=== PATIENT | male | born 1955 | race African-American/Black ===

== ENCOUNTER 2019-04-20 21:50 | Inpatient (IN) | payer MEDICARE, SELFPAY ==
--- NOTE | ~2019-04-20 | CT_ITS ---
EXAMINATION: CTA chest PE protocol DATE: 04/20/2019 23:12 INDICATION: Chest pain and shortness of breath TECHNIQUE: Computed tomography (CT) pulmonary angiogram of the chest was performed with 100 mL Omnipa que-350 intravenous contrast. Additional 3D reconstructions utilizing coronal maximum intensity proje ction (MIP) were performed. Automated exposure control and iterative reconstruction technique were em ployed. The dose-length product was 140.85 mGy-cm. COMPARISON: None FINDINGS: Good contrast opacification of the pulmonary arteries. There is mild streak artifact from dense contr ast in the superior vena cava and right atrium. Mild to moderate scattered respiratory motion artifac t which decreases sensitivity and specificity in the central pulmonary arteries and rendered is asses sment of the smaller subsegmental pulmonary arteries is essentially nondiagnostic. No definite pulmon radha embolism identified. Severe emphysema the upper lungs. Again seen is a 5.7 x 4.5 cm right upper l obe mass concerning for primary bronchogenic carcinoma.Persistent band of atelectasis extending infer olaterally from the mass in the right upper lobe. No new airspace opacities, pulmonary edema, pleural effusion or pneumothorax. Heart size is normal. No pericardial effusion. Likely metastatic 3.1 x 2.6 cm lymph node/conglomeration of lymph nodes at the right hilum and 2.5 x 1.8 cm precarinal lymph nod e. Thoracic aorta is normal in caliber with no dissection. Again seen is a short dissection at the ce liac axis. Small sliding-type hiatal hernia. Mild thoracic spondylosis. IMPRESSION: 1. No central pulmonary embolism through the segmental pulmonary arteries with more peripheral assess ment limited by motion artifact. 2. Severe emphysema in the upper lungs. 3. 5.7 x 4.5 cm right upper lobe mass with enlarged right hilar and mediastinal lymph nodes concernin g for metastatic primary bronchogenic carcinoma. 4. Small sliding-type hiatal hernia. 5. 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 Reviewed, dictated and finalized at location A. ORA OPERATIONS CONSULTANT IMPRESSION: 1. No central pulmonary embolism through the segmental pulmonary arteries with more peripheral assessment limited by motion artifact. 2. Severe emphysema in the upper lungs. 3. 5.7 x 4.5 cm right upper lobe mass with enlarged right hilar and mediastinal lymph nodes concerning for metastatic primary bronchogenic carcinoma. 4. Small sliding-type hiatal hernia. 5. 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
--- NOTE | ~2019-04-20 | CT_ITS ---
EXAMINATION: CT biopsy lung DATE: 04/24/2019 10:15 INDICATION: Right lung mass TECHNIQUE: The procedure including the risks and benefits was discussed with the patient. Risks discu ssed included infection, approximately 1/20 risk of symptomatic hemorrhage beyond mild hemoptysis, ap proximately 1/3 risk of pneumothorax, and approximately 1/10 risk of pneumothorax severe enough to wa rrant chest tube placement. The patient understood the risks and agreed to proceed. The patient was p laced prone. The skin overlying the posterior superior right chest was prepped and draped in sterile fashion. Anesthetic was administered with 1% lidocaine subcutaneously. A 19 gauge outer needle was advanced under CT guidance to the lesion of interest. A 20 gauge core biopsy needle was then used to obtain 5 core biopsy specimens. The needle was removed and the entry site was cleaned and dressed. T here were no immediate complications. The dose-length product was 91.00 mGy-cm. FINDINGS: CT images demonstrate the outer needle tip adjacent to a 6.0 x 4.8 cm mass at the posterior segment of the right upper lobe. Severe emphysema in the upper lobes. IMPRESSION: 1. Successful CT-guided biopsy of 6.0 x 4.8 cm right upper lobe mass. 2. Emphysema. Reviewed, dictated and finalized at location A. OTHERAPIST
--- NOTE | ~2019-04-20 | XR_ITS ---
EXAMINATION: XR chest 1V portable DATE: 04/24/2019 11:32 INDICATION: One hour post percutaneous right lung biopsy TECHNIQUE: frontal view of the chest was obtained. COMPARISON: Chest radiograph dated 04/24/2019 at 10:20 AM FINDINGS: Interval development of a small right pneumothorax with separation of the pleural margins at the apex of 11 mm and at the right lower lung zone of 1.6 cm. There appears to be some pleural-parenchymal sc arring at the right mid to upper lung zone with a portion of the lung remaining tethered to the parie edilia pleura. Right paramediastinal/suprahilar mass concerning for primary bronchogenic carcinoma. Elly elvi of the lungs are clear. Bilateral nipple shadows project between the anterior fifth and sixth r ibs. No other airspace opacities, pleural effusion or left-sided pneumothorax. The cardiomediastinal silhouette is normal with no midline shift. No depression of the right hemidiaphragm. Visualized bone s and soft tissues are unremarkable. IMPRESSION: 1. Interval development of a small right pleural effusion with suggestion of pleural-parenchymal scar ring tethering the lateral aspect of the right midlung to the lateral chest wall. Findings were discu ssed with Norah Wilson, the nurse caring for the patient, at 11:45 AM. Patient's oxygen saturation on room air is 96% and the patient remains asymptomatic. Following discussion with Dr. Jeannie Colon the plan is to continue to observe the patient with continuous oxygen saturation monitoring and obtai nalini the standard 3 hour postprocedure radiograph. Should the patient decompensated or the pneumothora x continued to demonstrate significant increase in size would consider chest tube placement at that t blayne. 2. Right upper lobe mass concerning for primary bronchogenic carcinoma. Reviewed, dictated and finalized at location A. MATION OPERATOR IMPRESSION: 1. Interval development of a small right pleural effusion with suggestion of pl eural-parenchymal scarring tethering the lateral aspect of the right midlung to the lateral chest wall. Findings were discussed with Norah Wilson, the nurse caring for the patient, at 11:45 AM. Patient's oxygen saturation on room air i s 96% and the patient remains asymptomatic. Following discussion with Dr. Andrea Colon the plan is to continue to observe the patient with continuous oxygen saturation monitoring and obtained the standard 3 hour postprocedure radiograph . Should the patient decompensated or the pneumothorax continued to demonstrate significant increase in size would consider chest tube placement at that time. 2. Right upper lobe mass concerning for primary bronchogenic carcinoma.
--- NOTE | ~2019-04-20 | XR_ITS ---
EXAMINATION: XR chest 1V portable DATE: 04/24/2019 13:29 INDICATION: 3 hour post right percutaneous lung biopsy. Pneumothorax. TECHNIQUE: frontal view of the chest was obtained. COMPARISON: Chest radiographs dated 04/24/2019 at 11:26 AM and 10:20 AM FINDINGS: Continued slow increase in a small to moderate-sized right pleural effusion with increasing atelectas is in the right lung. The separation between the pleural margins measures 1.1 cm at the right upper l lena zone and 2.5 cm at the lateral right lower lung zone. Small component is also seen between the me dial right upper lobe and the mediastinum. Again seen is a large right suprahilar/paramediastinal mas s concerning for primary bronchogenic carcinoma. Left lung remains clear with no left-sided pneumotho rax. No pleural effusion. Cardiomediastinal silhouette remains normal and midline. IMPRESSION: 1. Increasing small to moderate sized right pneumothorax post percutaneous biopsy right paramediastin al/suprahilar mass concerning for primary bronchogenic carcinoma. Per discussion with the patient's n giovannae the oxygen saturations have decreased, now 94% on 2 L oxygen by nasal cannula. A previous discus clive with Dr. Colon, we will proceed with CT-guided chest tube placement. I discussed the findings a nd the plan with the patient who stated the risks and benefits of the procedure as well as continued observation. He provided verbal and written consent to proceed with chest tube placement. Reviewed, dictated and finalized at location A. ING TEACHER IMPRESSION: 1. Increasing small to moderate sized right pneumothorax post percutaneous biop sy right paramediastinal/suprahilar mass concerning for primary bronchogenic ca rcinoma. Per discussion with the patient's nurse the oxygen saturations have de creased, now 94% on 2 L oxygen by nasal cannula. A previous discussion with Dr. Colon, we will proceed with CT-guided chest tube placement. I discussed the f indings and the plan with the patient who stated the risks and benefits of the procedure as well as continued observation. He provided verbal and written cons ent to proceed with chest tube placement.
--- NOTE | ~2019-04-20 | XR_ITS ---
XR chest 1V portable DATE: 04/26/2019 05:46 INDICATION: Pneumothorax TECHNIQUE: Portable upright AP chest on 04/26/2019 at 0540 hours COMPARISON: 04/25/2019 portable AP chest at 0537 hours FINDINGS: Right thoracostomy tube is again noted. No pneumothorax is evident. Pulmonary mass density is noted at the right upper lobe. There is mild atelectasis at the lung bases, left greater than righ t. IMPRESSION: No evidence of pneumothorax following thoracostomy tube placement Right upper lobe pulmonary mass Mild infiltrate or atelectasis in the lower lung zones, left greater than right Reviewed, dictated and finalized at location A. GE REPAIR CREW PERSON
--- NOTE | ~2019-04-20 | XR_ITS ---
EXAMINATION: XR chest 2V EXAM DATE: 04/26/2019 16:18 INDICATION: Chest tube removal. TECHNIQUE: Frontal and lateral projections of the chest obtained and reviewed. Comparison is made to prior examination from earlier same date. FINDINGS: Previously seen right-sided chest tube has been removed. There is no evidence of pneumotho rax on this study. Right suprahilar mass unchanged. Small amount of nonspecific left lower lobe atele ctasis or pneumonia. The lungs are otherwise clear. There are no pleural effusions. The cardiomedia stinal silhouette is within normal limits. The bones and soft tissues are unremarkable. IMPRESSION: 1. Small amount of left lower lobe atelectasis or pneumonia.. 2. Right suprahilar mass. 3. No evidence of pneumothorax. Reviewed, dictated and finalized at location A. CAL LEADER
--- NOTE | ~2019-04-20 | XR_ITS ---
EXAMINATION: XR chest 1V portable INDICATION: Bronchoscopy TECHNIQUE: Portable AP chest at 1632 hours COMPARISON: 04/14/[address] from yesterday FINDINGS: There is a stable right suprahilar mass. Peripheral opacities adjacent to the mass could re flect atelectasis or less likely pulmonary hemorrhage. There is no pleural effusion or pneumothorax. The cardiomediastinal silhouette is normal. Calcified pulmonary nodules and calcified hilar lymph nod es are consistent with old granulomatous disease. IMPRESSION: 1. Stable right hilar mass, no pneumothorax. 2. Minimal airspace opacities peripheral to the mass likely reflect atelectasis. Reviewed, dictated and finalized at location A. L INSTRUCTOR IMPRESSION: 1. Stable right hilar mass, no pneumothorax. 2. Minimal airspace opacities peripheral to the mass likely reflect atelectasis .
--- NOTE | ~2019-04-20 | CT_ITS ---
EXAMINATION: CT brain wo con DATE: 04/21/2019 01:32 INDICATION: Syncope and head trauma. TECHNIQUE: Computed tomography (CT) of the head was performed without intravenous contrast. Sagittal and coronal reconstructions were performed. The mA was adjusted according to patient size. Iterative reconstruction technique was employed. The dose-length product was 605.33 mGy-cm. COMPARISON: head CT dated 08/16/2006 FINDINGS: No acute fracture. Chronic fixation with cerclage wires at the posterior ring of C1. No acute intracr anial hemorrhage, acute infarction or abnormal extra axial fluid collection. There is mild scattered white matter hypoattenuation consistent with chronic small vessel ischemic disease. Mild increased pr ominence of the sulci and subarachnoid spaces overlying the convexities consistent with mild age-appr opriate diffuse volume loss. Ventricles are normal and symmetric. No mass/mass effect. Small amount o f residual contrast in the vessels and along the dura from a contrast-enhanced CT of the chest perfor med less than 3 hours prior. The orbits, paranasal sinuses and mastoid air cells are normal. Intracra nial calcified cerebral atherosclerosis is noted. IMPRESSION: 1. No fracture or acute intracranial process. Reviewed, dictated and finalized at location A. DEPILER OPERATOR
--- NOTE | ~2019-04-20 | XR_ITS ---
EXAMINATION: XR chest 1V DATE: 04/24/2019 10:30 INDICATION: Status post percutaneous right lung biopsy TECHNIQUE: frontal view of the chest was obtained. COMPARISON: Chest radiograph dated 04/21/2019 FINDINGS: Again seen is a large suprahilar/paramediastinal mass in the right upper lung zone. Increased lucency and architectural distortion at the apices consistent with emphysema. No new airspace opacities, pul monary edema, pleural effusion or pneumothorax. The cardiomediastinal silhouette is normal. IMPRESSION: 1. Pneumothorax, pleural effusion or other acute cardiopulmonary disease post percutaneous biopsy of a right upper lobe paramediastinal mass concerning for primary bronchogenic carcinoma. Reviewed, dictated and finalized at location A. WELL OPERATOR IMPRESSION: 1. Pneumothorax, pleural effusion or other acute cardiopulmonary disease post p ercutaneous biopsy of a right upper lobe paramediastinal mass concerning for pr imary bronchogenic carcinoma.
--- NOTE | ~2019-04-20 | XR_ITS ---
EXAMINATION: XR chest 1V portable DATE: 04/25/2019 05:46 INDICATION: Pneumothorax TECHNIQUE: frontal view of the chest was obtained. COMPARISON: Chest radiograph dated 04/24/2019 and 04/21/2019 FINDINGS: Right chest tube with coiled distal tip projecting over the right apex. No pneumothorax or pulmonary edema or pleural effusion. Mild linear opacities at the periphery of the right upper, mid and lower l lena zones consistent with mild discoid atelectasis. Right suprahilar mass concerning for primary bron chogenic carcinoma. The cardiomediastinal silhouette is normal. IMPRESSION: 1. Resolution of prior pneumothorax post chest tube placement. 2. Right suprahilar mass concerning for primary bronchogenic carcinoma. Reviewed, dictated and finalized at location A. CENTER OPERATOR
--- NOTE | ~2019-04-20 | US_ITS ---
EXAMINATION: US carotid duplex BI DATE: 04/21/2019 09:23 INDICATION: Syncope TECHNIQUE: Grayscale, color Doppler, and pulsed Doppler images of the cervical carotid arteries were obtained. The degree of vessel stenosis is placed in one of the following categories: normal, <50%, 5 0-69%, >=70% but less than near-occlusion, near-occlusion, or total occlusion. Note that percent sten osis relative to normal distal artery lumen diameter is indirectly measured from velocity measurement s as described by Matt, et al. Radiology 2003; [id number]:[id number]. COMPARISON: None. FINDINGS: RIGHT: The right common carotid artery (CCA) peak systolic velocity (PSV) is 120 cm/s. The right internal ca rotid artery (ICA) PSV is 100 cm/s. The right ICA end-diastolic velocity (EDV) is 31 cm/s. The right ICA/CCA PSV ratio is 0.8. Grayscale and color Doppler images demonstrate no appreciable stenosis or p laque in the ICA. The external carotid artery (ECA) PSV is 98 cm/s. There is antegrade flow in the ri ght vertebral artery. LEFT: The left CCA PSV is 132 cm/s. The left ICA PSV is 126 cm/s. The left ICA EDV is 29 cm/s. The left ICA /CCA PSV ratio is 1.0. Grayscale and color Doppler images demonstrate no appreciable stenosis or plaq ue in the ICA. The ECA PSV is 156 cm/s. There is antegrade flow in the left vertebral artery. IMPRESSION: 1. No appreciable plaque or stenosis in the right internal carotid artery. 2. No appreciable plaque or stenosis in the left internal carotid artery. Reviewed, dictated and finalized at location A. CAL SOCIAL WORKER
--- NOTE | ~2019-04-20 | CT_ITS ---
EXAMINATION: [place] [facility] [place]: 04/24/2019 15:31 INDICATION: Right-sided pneumothorax post percutaneous lung biopsy TECHNIQUE: The procedure including the risks and benefits was discussed with the patient. Risks discu ssed included bleeding and infection. The patient understood the risks and benefits and agreed to pro ceed. The skin overlying the infraclavicular right chest wall was prepped and draped in usual sterile fashion. Anesthetic was administered with 1% lidocaine subcutaneously. An 18-gauge trocar needle wa s inserted into the apical portion of the right pneumothorax utilizing CT guidance. The trocar was re moved and a wire advanced into the pneumothorax with position confirmed by CT. Utilizing Seldinger te chnique the needle was removed and the tract dilated over the wire and an 8.5 [place] catheter was jose marci into the pneumothorax. Position was confirmed by CT, the wire removed and the loop formed and loc ked. Vaseline impregnated gauze was applied at the access site, the catheter fixed to the skin with s uture and a sterile dressing applied. The pneumothorax was manually aspirated with near complete reso lution of the pneumothorax confirmed by CT. Patient's oxygen requirement decreased and the patient wa s satting 98% on 2 L by nasal cannula at the prior to transport to the floor. The catheter was attach ed to a one-way valve and the more proximal stopcock closed for transport. I discussed with the nurse of the catheter should be attached to suction upon reaching the floor and a follow-up chest radiogra ph obtained. There were no immediate complications. The mAs was manually reduced to reduce radiation exposure. The dose-length product was 92.66 mGy-cm. FINDINGS: CT images demonstrate the catheter within the anterior apical pleural space with near compl ete resolution of the prior pneumothorax. Severe emphysema in the upper lung zones. Again seen is the biopsied right upper lobe mass which is concerning for primary bronchogenic carcinoma. IMPRESSION: 1. Successful CT-guided right chest tube placement. 2. The chest tube will be managed by Dr. Mackay. Reviewed, dictated and finalized at location A. IGURATION MANAGEMENT CONSULTANT
[2019-04-20 21:49] VITALS: BP 127/84; PULSE 120; RESP 26; TEMP 37.1; O2SAT 100
--- NOTE | 2019-04-20 21:58 | ECG_ITS ---
Measurements Intervals [place] Rate: 112 P: 69 IA: 149 QRS: -46 QRSD: 78 T: 52 QT: 328 QTc: 448 Interpretive Statements SINUS TACHYCARDIA LEFT ANTERIOR FASCICULAR BLOCK BASELINE ARTIFACT- I, II, III, AVR, AVL, AVF, V1 ABNORMAL ECG Electronically Signed On 04-21-2019 7:06:54 BAD WORK GATHERER by Vance Molina D.O.
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
[2019-04-20] MEDS: ONDANSETRON INJ 4 MG/2 ML VIAL IV PUSH (22:17)
[2019-04-20] MEDS: SODIUM CHLORIDE 0.9% IV 1,000 ML 999 ML IV CONT ×2 (22:17→23:22)
[2019-04-20 22:24] LABS: Basophils Absolute Auto 0.1 K/mm3 (0.0-0.1); Basophils Percent Auto 0.4 % (0.2-1.2); Eosinophils Percent Auto 0.1 % (0-4.4); Hematocrit 37.6 % (42.0-52.0); Hemoglobin 12.3 g/dL (14.0-18.0); Immature Granulocyte Absolute 0.04 K/mm3 (0.00-0.031); Immature Granulocyte Percent A 0.3 % (0-0.5); Lymphocytes Absolute Auto 2.44 K/mm3 (0.9-3.2); Lymphocytes Percent Auto 19.6 % (18.3-44.2); Mean Corpuscular HGB Conc 32.7 g/dl (32-36); Mean Corpuscular Volume 82.6 fl (80-100); Mean Platelet Volume 8.3 fl (7.4-10.4); Monocytes Percent Auto 7.9 % (2.6-8.5); Neutrophils Absolute Auto 8.9 K/mm3 (1.3-6.7); Neutrophils Percent Auto 71.7 % (45.5-73.1); Platelet Count Result 510 k/mm3 (150-375); Red Blood Count 4.55 M/mm3 (4.6-6.20); Red Cell Distribution Width 13.8 % (11.5-14.5); White Blood Count 12.5 K/mm3 (4.5-10.0)
[2019-04-20] MEDS: LORAZEPAM INJ 2 MG/ML VIAL 1 MG IV PUSH (22:24)
[2019-04-20] MEDS: PANTOPRAZOLE SODIUM IV 40 MG VIAL IV PUSH (22:24)
[2019-04-20 22:35] LABS: Partial Thromboplastin Time 24.1 SECONDS (22.3-36.8); Prothrombin Time 13.1 Seconds (11.1-14.7)
[2019-04-20 22:36] LABS: Alanine Aminotransferase 17 U/L (4-50); Albumin Level 4.5 g/dL (3.5-5.1); Alkaline Phosphatase 78 U/L (38-126); Aspartate Amino Transferase 37 U/L (17-59); Bilirubin,Total 0.6 mg/dL (0.2-1.3); Blood Urea Nitrogen 14 mg/dL (9-20); Calcium 9.3 mg/dL (8.4-10.2); Carbon Dioxide 22 mmol/L (22-30); Chloride 96 mmol/L (98-107); Estimated CRCL calculation 60 ml/min; Estimated Glomerular Filt Rate > 60; Glucose 129 mg/dL (75-110); Potassium 3.7 mmol/L (3.4-5.0); Sodium 132 mmol/L (137-145)
[2019-04-20 22:48] LABS: Troponin I 0.018 ng/mL (0.000-0.034)
[2019-04-20 22:55] VITALS: BP 125/81; PULSE 107; RESP 22; O2SAT 100
[2019-04-20 23:15] VITALS: PULSE 115; RESP 29
[2019-04-20] MEDS: ALBUTEROL SULFATE NEB 2.5 MG/0.5 ML INH 5 MG INHALATION (23:15)
[2019-04-20] MEDS: IPRATROPIUM BR 0.02% INH SOLN 0.5 MG/2.5 ML VIAL INHALATION (23:15)
[2019-04-20 23:26] VITALS: PULSE 117; RESP 24
[2019-04-21] VITALS (26 sets, daily range): BP systolic 101–132; BP diastolic 51–80; PULSE 79–117; RESP 16–32; TEMP 36.2–37.6; O2SAT 95–100; BMI 18.1
--- NOTE | 2019-04-21 01:19 | ECHO_ITS ---
Patient Info Name: Shubham Sutton Age: 63 years : 1955 Gender: Male Ht: 67 in Wt: 110 lbs BSA: 1.52 m2 HR: 100 bpm BP: 123 / 76 mmHg Heart Rhythm: Tachycardia Technical Quality: Good Exam Date: 04/21/2019 11:39 AM Exam Location: [facility] Patient Status: Inpatient Admit Date: 04/21/2019 Staff Ordering Physician: Maycol Harper MD Import/Export Clerk: Abigail Elmore RDCS Attending Provider: Leila Isabel PA-C Referring Physician: Leroy BEAR; Exam Type: CA echo doppler color flow Study Info Indications R55 - Syncope and collapse Complete two-dimensional, color flow and Doppler transthoracic echocardiogram is performed. Summary 1. Left ventricular systolic function is hyperdynamic, estimated at >70%. 2. There is no increased left ventricular wall thickness. 3. The left ventricular diastolic function is grade I diastolic dysfunction. 4. There is trace mitral valve regurgitation. 5. There is no aortic valve stenosis. 6. There is mild tricuspid valve calcification. 7. PA systolic pressure 37mmHg consistent with mild pulmonary hypertension. Left Ventricle Left ventricular chamber dimension is normal. Left ventricular systolic function is hyperdynamic, estimated at >70%. There is no increased left ventricular wall thickness. Left ventricular septal wall motion is normal. The left ventricular diastolic function is grade I diastolic dysfunction. Right Ventricle Right ventricular chamber dimension is normal. Right ventricular systolic function is normal. Left Atria Left atrial chamber dimension is normal. Right Atria Right atrial chamber dimension is normal. Aortic Valve The aortic valve is trileaflet. There is mild aortic valve sclerosis. There is no aortic valve stenosis. There is no aortic valve regurgitation. Pulmonic Valve The pulmonic valve is not well visualized. There is trace pulmonic regurgitation. Mitral Valve The mitral valve has normal leaflets. There is trace mitral valve regurgitation. Tricuspid Valve The tricuspid valve leaflets are normal. There is mild tricuspid valve calcification. PA systolic pressure 37mmHg consistent with mild pulmonary hypertension. Pericardium/Pleural The pericardium appears normal. There is no pericardial effusion. Inferior Vena Cava Normal inferior vena cava with >50% collapse upon inspiration consistent with normal right atrial pressure, 5 mmHg. Aorta The aortic root size at the sinus of Valsalva is normal. Left Ventricular Outflow Tract Name Value Normal LVOT 2D LVOT Diameter 2.0 cm LVOT Doppler LVOT Peak Gradient 7 mmHg LVOT Mean Gradient 4 mmHg LVOT VTI 20 cm LVOT VTI/AV VTI Ratio 0.9 LVOT Stroke Volume 65 ml LVOT CO 17.7 l/min LVOT CI 11.6 l/min/m2 Pulmonic Valve Name Value
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
[2019-04-21 01:44] LABS: Troponin I 0.017 ng/mL (0.000-0.034)
--- NOTE | 2019-04-21 02:20 | ADMGEN ---
This patient, Shubham Sutton, was admitted to [facility] Surg Room 320-01. Patient/family oriented to hospital policies and general routines including ID bracelet, bed and alarms, visiting hours, pain management, procedures, bathroom and other care routines, personal items, smoking policy, room service/diet, and visiting hours. Valuables list has been completed. Information on how to activate the Rapid Response Team has been discussed. Patient/Family are encouraged to report perceived risks to care and to ask questions if they do not understand what they are told or what they should do.
[2019-04-21] MEDS: ALBUTEROL SULFATE NEB 2.5 MG/0.5 ML INH 5 MG INHALATION ×3 (02:21→21:10)
[2019-04-21] MEDS: IPRATROPIUM BR 0.02% INH SOLN 0.5 MG/2.5 ML VIAL INHALATION ×3 (02:22→21:09)
[2019-04-21] MEDS: SODIUM CHLORIDE 0.9% IV 1,000 ML 100 ML IV CONT ×2 (03:12→19:05)
[2019-04-21 04:27] LABS: Basophils Percent Auto 0.4 % (0.2-1.2); Hematocrit 32.3 % (42.0-52.0); Hemoglobin 10.3 g/dL (14.0-18.0); Immature Granulocyte Absolute 0.02 K/mm3 (0.00-0.031); Immature Granulocyte Percent A 0.2 % (0-0.5); Lymphocytes Absolute Auto 2.95 K/mm3 (0.9-3.2); Mean Corpuscular HGB Conc 31.9 g/dl (32-36); Mean Corpuscular Hemoglobin 26.5 pg (26-34); Mean Corpuscular Volume 83.2 fl (80-100); Mean Platelet Volume 8.2 fl (7.4-10.4); Monocytes Absolute Auto 0.8 K/mm3 (0.1-0.6); Monocytes Percent Auto 8.5 % (2.6-8.5); Neutrophils Absolute Auto 5.7 K/mm3 (1.3-6.7); Neutrophils Percent Auto 59.9 % (45.5-73.1); Platelet Count Result 434 k/mm3 (150-375); Red Blood Count 3.88 M/mm3 (4.6-6.20); Red Cell Distribution Width 13.8 % (11.5-14.5); White Blood Count 9.5 K/mm3 (4.5-10.0)
[2019-04-21 04:39] LABS: Blood Urea Nitrogen 11 mg/dL (9-20); Calcium 8.5 mg/dL (8.4-10.2); Carbon Dioxide 23 mmol/L (22-30); Chloride 101 mmol/L (98-107); Estimated CRCL calculation 71 ml/min; Estimated Glomerular Filt Rate > 60; Glucose 116 mg/dL (75-110); Potassium 4.1 mmol/L (3.4-5.0); Sodium 132 mmol/L (137-145)
[2019-04-21 04:51] LABS: Troponin I 0.019 ng/mL (0.000-0.034)
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
[2019-04-21] MEDS: PANTOPRAZOLE SODIUM IV 40 MG VIAL IV PUSH (10:10)
--- NOTE | 2019-04-21 12:28 | P.PNAN_ITS ---
Anes - Initial Pre Proc Eval Procedure: Operation Date: 04/21/19 13:00 Proposed Procedures p Flexible Bronchoscopy - Mikey Mace MD Date/Time: 04/21/19 12:28 Surgeon: PHILIP Cook Pre Op Diagnosis: Chest Pain Patient Data Age: 63 Gender: M Height: 1.7 m Weight: 52.5 kg Last Vital Signs Temp 37.6 C 04/21/19 06:00 Pulse 97 04/21/19 09:58 Resp 18 04/21/19 09:58 BP 123/76 04/21/19 06:00 Pulse Ox 97 04/21/19 06:00 Allergies Allergy/AdvReac Type Severity Reaction Status Date / Time propoxyphene Allergy Unknown N/V Verified 04/20/19 22:56 tramadol Allergy Unknown Unknown Verified 04/20/19 22:56 Home Medications Medication Instructions Recorded Confirmed Type hydrochlorothiazide 12.5 mg BYMOUTH DAILY 04/14/19 04/21/19 History meloxicam 7.5 mg PO DAILY 04/14/19 04/21/19 History Laboratory Tests 04/20/19 04/20/19 04/20/19 22:16 22:17 22:17 WBC 12.5 K/mm3 H K/mm3 (4.5-10.0) RBC 4.55 M/mm3 L M/mm3 (4.6-6.20) Hgb 12.3 g/dL L g/dL (14.0-18.0) Hct 37.6 % L % (42.0-52.0) MCV 82.6 fl fl (80-100) MCH 27.0 pg pg (26-34) MCHC 32.7 g/dl g/dl (32-36) RDW 13.8 % % (11.5-14.5) Plt Count 510 k/mm3 H k/mm3 (150-375) MPV 8.3 fl fl (7.4-10.4) Immature Gran % (Auto) 0.3 % % (0-0.5) Neut % (Auto) 71.7 % % (45.5-73.1) Lymph % (Auto) 19.6 % % (18.3-44.2) [place] % (Auto) 7.9 % % (2.6-8.5) Eos % (Auto) 0.1 % % (0-4.4) Baso % (Auto) 0.4 % % (0.2-1.2) Lymph # (Auto) 2.44 K/mm3 K/mm3 (0.9-3.2) [place] # (Auto) 1.0 K/mm3 H K/mm3 (0.1-0.6) Eos # (Auto) 0.0 K/mm3 K/mm3 (0-0.3) Baso # (Auto) 0.1 K/mm3 K/mm3 (0.0-0.1) Abs Immat Gran (auto) 0.04 K/mm3 H K/mm3 (0.00-0.031) Absolute Neuts (auto) 8.9 K/mm3 H K/mm3 (1.3-6.7) Absolute Nucleated RBC 0.0 K/mm3 K/mm3 (0.0-0.012) Nucleated RBC % 0.0 % % (0.0-0.2) PT 13.1 Seconds Seconds (11.1-14.7) INR 1.0 APTT 24.1 SECONDS SECONDS (22.3-36.8) Sodium 132 mmol/L L mmol/L (137-145) Potassium 3.7 mmol/L mmol/L (3.4-5.0) Chloride 96 mmol/L L mmol/L (98-107) Carbon Dioxide 22 mmol/L mmol/L (22-30) BUN 14 mg/dL mg/dL (9-20) Creatinine 0.80 mg/dL mg/dL (0.7-1.3) Estim Creat Clear Calc 60 ml/min ml/min Estimated GFR > 60 (59 - ) Glucose 129 mg/dL H mg/dL (75-110) Calcium 9.3 mg/dL mg/dL (8.4-10.2) Total Bilirubin 0.6 mg/dL mg/dL (0.2-1.3)
--- NOTE | 2019-04-21 12:37 | WPDANESEPPF ---
Anes - Initial Pre Proc Eval Procedure: Operation Date: 04/21/19 13:00 Proposed Procedures p Flexible Bronchoscopy - Mikey Mace MD Date/Time: 04/21/19 12:37 Surgeon: PHILIP Cook Pre Op Diagnosis: Chest Pain Patient Data Age: 63 Gender: M Height: 1.7 m Weight: 52.5 kg Last Vital Signs Temp 37.6 C 04/21/19 06:00 Pulse 97 04/21/19 09:58 Resp 18 04/21/19 09:58 BP 123/76 04/21/19 06:00 Pulse Ox 97 04/21/19 06:00 Allergies Allergy/AdvReac Type Severity Reaction Status Date / Time propoxyphene Allergy Unknown N/V Verified 04/20/19 22:56 tramadol Allergy Unknown Unknown Verified 04/20/19 22:56 Home Medications Medication Instructions Recorded Confirmed Type hydrochlorothiazide 12.5 mg BYMOUTH DAILY 04/14/19 04/21/19 History meloxicam 7.5 mg PO DAILY 04/14/19 04/21/19 History Laboratory Tests 04/20/19 04/20/19 04/20/19 22:16 22:17 22:17 WBC 12.5 K/mm3 H K/mm3 (4.5-10.0) RBC 4.55 M/mm3 L M/mm3 (4.6-6.20) Hgb 12.3 g/dL L g/dL (14.0-18.0) Hct 37.6 % L % (42.0-52.0) MCV 82.6 fl fl (80-100) MCH 27.0 pg pg (26-34) MCHC 32.7 g/dl g/dl (32-36) RDW 13.8 % % (11.5-14.5) Plt Count 510 k/mm3 H k/mm3 (150-375) MPV 8.3 fl fl (7.4-10.4) Immature Gran % (Auto) 0.3 % % (0-0.5) Neut % (Auto) 71.7 % % (45.5-73.1) Lymph % (Auto) 19.6 % % (18.3-44.2) [place] % (Auto) 7.9 % % (2.6-8.5) Eos % (Auto) 0.1 % % (0-4.4) Baso % (Auto) 0.4 % % (0.2-1.2) Lymph # (Auto) 2.44 K/mm3 K/mm3 (0.9-3.2) [place] # (Auto) 1.0 K/mm3 H K/mm3 (0.1-0.6) Eos # (Auto) 0.0 K/mm3 K/mm3 (0-0.3) Baso # (Auto) 0.1 K/mm3 K/mm3 (0.0-0.1) Abs Immat Gran (auto) 0.04 K/mm3 H K/mm3 (0.00-0.031) Absolute Neuts (auto) 8.9 K/mm3 H K/mm3 (1.3-6.7) Absolute Nucleated RBC 0.0 K/mm3 K/mm3 (0.0-0.012) Nucleated RBC % 0.0 % % (0.0-0.2) PT 13.1 Seconds Seconds (11.1-14.7) INR 1.0 APTT 24.1 SECONDS SECONDS (22.3-36.8) Sodium 132 mmol/L L mmol/L (137-145) Potassium 3.7 mmol/L mmol/L (3.4-5.0) Chloride 96 mmol/L L mmol/L (98-107) Carbon Dioxide 22 mmol/L mmol/L (22-30) BUN 14 mg/dL mg/dL (9-20) Creatinine 0.80 mg/dL mg/dL (0.7-1.3) Estim Creat Clear Calc 60 ml/min ml/min Estimated GFR > 60 (59 - ) Glucose 129 mg/dL H mg/dL (75-110) Calcium 9.3 mg/dL mg/dL (8.4-10.2) Total Bilirubin 0.6 mg/dL mg/dL (0.2-1.3) AST 37 U/L U/L (17-59) ALT 17 U/L U/L (4-50) Alkaline Phosphatase 78 U/L U/L (38-126) Troponin I Total Protein 9.0 g/dL H g/dL (6.3-8.2) Albumin 4.5 g/dL g/dL (3.5-5.1) TSH (Reflex) 04/20/19 04/21/19 04/21/19 22:19 01:15 04:20 WBC RBC Hgb Hct MCV MCH MCHC RDW Plt Count MPV Immature Gran % (Auto) Neut % (Auto) Lymph % (Auto) [place] % (Auto) Eos % (Auto) Baso % (Auto) Lymph # (Auto) [place] # (Auto) Eos # (Auto) Baso # (Auto) Abs Immat Gran (auto) Absolute Neuts (auto) Absolute Nucleated RBC Nucleated RBC % PT INR APTT Sodium Potassium Chloride Carbon Dioxide BUN Creatinine Estim Creat Clear Calc Estimated GFR Glucose Calcium Total Bilirubin A
[2019-04-21] MEDS: LACTATED RINGERS 1,000 ML 150 ML IV CONT (12:45)
--- NOTE | 2019-04-21 14:30 | PCRCNOTE ---
1421 Patient in procedure not in room.
--- NOTE | 2019-04-21 16:19 | PC.NURSE ---
Returned from GI at 1600
--- NOTE | 2019-04-21 19:28 | PM.IMPN ---
Progress Note: A&P Assessment and Plan (1) Lung mass: Code(s): R91.8 - Other nonspecific abnormal finding of lung field Status: Acute Assessment and Plan: Patient was found to have right upper lobe pulmonary mass on an ED visit 04/14 when he came in for chest pain. Followed up with his PCP the following day and was referred for an outpatient biopsy that was scheduled for next week. Pulmonology consulted and he underwent bronchoscopy this afternoon with . Appreciate further recommendations from pulmonology and Oncology. (2) Acute dyspnea: Code(s): R06.00 - Dyspnea, unspecified Status: Acute Assessment and Plan: [place] to be secondary to above. Appreciate pulmonology input. (3) Syncope: Qualifiers: Syncope type: unspecified Qualified Code(s): R55 - Syncope and collapse Code(s): R55 - Syncope and collapse Status: Acute Assessment and Plan: Patient presented after syncopal episode at home after he became dizzy and diaphoretic while sitting on the toilet and fell and hit his head on the floor. May have been vasovagal in nature. CT brain shows no fracture or acute intracranial process, carotid Dopplers are unremarkable, echocardiogram shows grade 1 diastolic dysfunction, hyperdynamic systolic function EF > 70 % with trace mitral regurgitation. 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 ED providers 04/14/[address] surgery and vascular surgery at [facility] who recommended follow-up at their vascular surgery clinic as an outpatient and he has been given this information. Their office number is [phone]. Vitals are stable aside from sinus tachycardia, he is also is getting albuterol. Blood pressures are stable, he has no chest pain, troponins are negative. (5) HTN (hypertension) with goal to be determined: Code(s): I10 - Essential (primary) hypertension Status: Chronic Assessment and Plan: Stable maintained on his home hydrochlorothiazide. Monitor BP closely and adjust treatment if needed. Subjective Date/time seen: 04/21/19 1700 Interval history: Mr. Sutton is a 63yo M admitted after a syncopal episode after he was recently found to have a large right upper lobe lung mass. He is seen this morning after returning from bronchoscopy. He reports feeling okay, tired and hungry. He denies any chest pain at present. He tells me once he starts to talk too much, he becomes more short of breath and coughs. He denies any nausea or vomiting. Review of Systems Review of Systems: Narrative: Twelve systems were reviewed with pertinent positives and negatives as per HPI. Exam Narrative: Exam Narrative: General: Male resting sitting in bed in no acute distress. HEENT: Normocephalic, EOMI, oral mucosa dry. Cardiovascular: Rate and rhythm are regular. No notable murmur, rub, or gallop. Telemetry review shows sinus tachycardia, rate 108. Respiratory: Clear to auscultation, diminished on the left. Tolerating room air. Cough noted. Abdomen: Soft, non-tender, non-distended, bowel sounds present. Extremities: No edema or pain to palpation. Peripheral pulses intact. Neuro: No focal neurological deficits. Speech is clear. Objective Data Vital Signs Vital Signs: Last Vital Signs Temp 98.1 F 04/21/19 14:00 Pulse 108 H 04/21/19 16:00 Resp 18 04/21/19 15:30 BP 117/80 04/21/19 15:30 Pulse Ox 100 04/21/19 15:30 Intake/Output Intake/Output: Intake & Output 04/18/19 04/19/19 04/20/19 04/21/19 23:59 23:59 23:59 23:59 Intake Total 1000 2660 Output Total 1600 Balance 1000 1060 Meds/Results Medications: Active Medications
[2019-04-22] VITALS (13 sets, daily range): BP systolic 110–134; BP diastolic 74–87; PULSE 87–113; RESP 16–20; TEMP 36.7–37.1; O2SAT 96–100
[2019-04-22] MEDS: ALBUTEROL SULFATE NEB 2.5 MG/0.5 ML INH 5 MG INHALATION ×2 (02:56→07:58)
[2019-04-22] MEDS: IPRATROPIUM BR 0.02% INH SOLN 0.5 MG/2.5 ML VIAL INHALATION ×2 (02:56→07:59)
[2019-04-22] MEDS: SODIUM CHLORIDE 0.9% IV 1,000 ML 100 ML IV CONT (05:16)
[2019-04-22 06:24] LABS: Hematocrit 29.7 % (42.0-52.0); Hemoglobin 9.5 g/dL (14.0-18.0); Mean Corpuscular Hemoglobin 27.1 pg (26-34); Mean Corpuscular Volume 84.6 fl (80-100); Mean Platelet Volume 8.4 fl (7.4-10.4); Platelet Count Result 399 k/mm3 (150-375); Red Blood Count 3.51 M/mm3 (4.6-6.20); Red Cell Distribution Width 13.9 % (11.5-14.5); White Blood Count 8.7 K/mm3 (4.5-10.0)
[2019-04-22 06:40] LABS: Blood Urea Nitrogen 9 mg/dL (9-20); Calcium 8.2 mg/dL (8.4-10.2); Carbon Dioxide 21 mmol/L (22-30); Chloride 103 mmol/L (98-107); Estimated CRCL calculation 71 ml/min; Estimated Glomerular Filt Rate > 60; Glucose 99 mg/dL (75-110); Phosphorus 3.3 mg/dL (2.5-4.5); Potassium 3.7 mmol/L (3.4-5.0); Sodium 135 mmol/L (137-145)
--- NOTE | 2019-04-22 06:59 | WPDANESPN ---
Anes - Prog Note Post-Op Date/Time: 04/22/19 06:59 Cardiovascular status: normal Respiratory status: normal Airway patency: baseline Mental status: baseline Post-Op hydration status: normal Vital Signs: Last Vital Signs Temp 36.9 C 04/22/19 06:14 Pulse 106 H 04/22/19 06:14 Resp 16 04/22/19 06:14 BP 131/75 04/22/19 06:14 Pulse Ox 96 04/22/19 06:14 I/O: Intake & Output 04/21/19 04/21/19 04/22/19 15:59 23:59 07:59 Intake Total 870 1550 1350 Output Total 300 900 850 Balance 570 650 500 Laboratory Tests 04/22/19 05:55 04/22/19 05:55 04/22/19 04/22/19 05:55 05:55 WBC 8.7 RBC 3.51 L Hgb 9.5 L Hct 29.7 L MCV 84.6 MCH 27.1 MCHC 32.0 RDW 13.9 Plt Count 399 H MPV 8.4 Sodium 135 L Potassium 3.7 Chloride 103 Carbon Dioxide 21 L BUN 9 Creatinine 0.70 Estim Creat Clear Calc 71 Estimated GFR > 60 Glucose 99 Calcium 8.2 L Phosphorus 3.3 Magnesium 2.0 Post-procedural complaints: none Patient Feedback: Patient satisfied with anesthetic care.
[2019-04-22] MEDS: PANTOPRAZOLE SODIUM IV 40 MG VIAL IV PUSH (08:24)
[2019-04-22] MEDS: hydroCHLOROthiazide 12.5 MG CAPSULE PO (08:24)
--- NOTE | 2019-04-22 13:33 | PM.IMPN ---
Progress Note: A&P Assessment and Plan (1) Syncope: Qualifiers: Syncope type: unspecified Qualified Code(s): R55 - Syncope and collapse Code(s): R55 - Syncope and collapse Status: Acute Assessment and Plan: -----workup essentially negative. He did have presyncopal symptoms which favors vasovagal. No PE on CTA, no significant stenosis on carotid ultrasound, and no stroke on head CT. No AFib noted and no echo abnormalities. Telemetry does not show any abnormalities. (2) Chest pain: Qualifiers: Chest pain type: other chest pain Qualified Code(s): R07.89 - Other chest pain Code(s): R07.9 - Chest pain, unspecified Status: Acute Assessment and Plan: Likely secondary to lung mass. Troponin negative x3 in no chest pain now. Telemetry reveals sinus tachycardia but no abnormalities. And showed sinus tachycardia with left anterior fascicular block. . (3) Sinus tachycardia: Code(s): R00.0 - Tachycardia, unspecified Status: Acute Assessment and Plan: -----the patient did not have tachycardia during his last stay but usually is on the high range of normal. He does not have any palpitations or chest pain currently. Echo looks okay. No PE. Could be due to dehydration, lung disease, anxiety. Will monitor (4) Lung mass: Code(s): R91.8 - Other nonspecific abnormal finding of lung field Status: Acute Assessment and Plan: -----bronch with washings done yesterday. Plan for CT biopsy tomorrow. (5) HTN (hypertension) with goal to be determined: Code(s): I10 - Essential (primary) hypertension Status: Chronic Assessment and Plan: stable. Monitor blood pressure. Continue Hctz Additional Plan Time Spent With Patient Time with patient: 25 - 35 minutes Subjective Date/time seen: 04/22/19 13:33 Interval history: Pt is a 63-year-old male here for syncope. Patient was seen today and is not having any syncope like symptoms but has not really been out of bed. He is not walking to the bathroom and is utilizing the urinal to urinate. He has no complaints today. Pt denies nausea, vomiting, fevers, chills, constipation, diarrhea, chest pain, sob, or abdominal pain. He has not had a bowel movement in a few days. He says he has been gradually losing weight without trying originally 150 and now down to 120. Review of Systems Review of Systems: All systems reviewed & are unremarkable except as noted in HPI and below Exam Narrative: Exam Narrative: General: Patient resting comfortably in bed in no acute distress HEENT: normocephalic Neck: supple Neuro: Alert and oriented x 4 CV:RRR Resp: Sounds in the right upper lung. No wheezing or rhonchi noted on today's exam. Abd: Soft, non distended. No pain to palpation. Positive bowel sounds Extremities: No swelling, erythema, or pain to palpation. Objective Data Vital Signs Vital Signs: Vital Signs - 24 hr 04/21/19 13:56 04/21/19 14:00 04/21/19 14:06 Temperature 97.1 F L 98.1 F Pulse Rate 103 H 80 106 H Respiratory Rate 32 H 18 32 H Blood Pressure 113/75 131/68 115/68 Pulse Oximetry 100 100 04/21/19 14:16 04/21/19 14:26 04/21/19 14:36 Temperature Pulse Rate 106 H 108 H 98 Respiratory Rate 25 H 26 H 26 H Blood Pressure 101/51 L 111/68 111/75 Pulse Oximetry 100 100 100 04/21/19 14:48 04/21/19 14:58 04/21/19 15:30 Temperature Pulse Rate 102 H 100 98 Respiratory Rate 29 H 18 18 Blood Pressure 110/67 111/80 117/80 Pulse Oximetry 100 100 100 04/21/19 16:00 04/21/19 20:00 04/21/19 21:05 Temperature Pulse Rate 108 H 116 H 89 Respiratory Rate 18 Blood Pressure Pulse Oximetry 04/21/19 21:13 04/21/19 21:59 04/22/19 00:00 Temperature 99.7 F H Pulse Rate 92 98 113 H Respiratory Rate 18 16 Blood Pressure 116/71 Pulse Oximetry 95 04/22/19 02:55 04/22/19 03:05 04/22/19 05:
--- NOTE | 2019-04-22 23:00 | PM.PNPUL ---
Progress Note: A&P Assessment and Plan (1) Lung mass: Code(s): R91.8 - Other nonspecific abnormal finding of lung field Status: Acute Assessment and Plan: - f/u on cytology from [facility] brushing and washings - could not safely biopsy subcarinal or mediastinal lymph nodes - If cythology is negative, the patient needs a CT guided biopsy - continue Levaquin 750 mg IV/PO for 7-8 days Time Spent With Patient Time with patient: 25 - 35 minutes Subjective Date/time seen: 04/22/19 23:00 Interval history: Feels slightly better but still has cough irritated by speaking. Bronchoscopy unfortunately did not show and endobronchial lesion but brushings and washings were taken from the [facility]. Cytology is pending. Review of Systems Review of Systems: All systems reviewed & are unremarkable except as noted in HPI and below Exam Const: General: comfortable and no acute distress HENMT: Mouth: Yes moist mucous membranes Neck: Neck: supple and no JVD Resp: Effort & Inspection: normal respiratory effort Auscultation: clear to auscultation bilaterally Cardio: Rate: regular rate Rhythm: regular rhythm Heart sounds: no gallops and no murmurs Neuro: General: gait normal Extrem: General: normal to inspection, no edema and no pedal edema Objective Data Vital Signs Vital Signs: Vital Signs - 24 hr 04/22/19 00:00 04/22/19 02:55 04/22/19 03:05 Temperature Pulse Rate 113 H 88 87 Respiratory Rate 18 18 Blood Pressure Pulse Oximetry 04/22/19 05:29 04/22/19 06:14 04/22/19 08:00 Temperature 36.9 C Pulse Rate 108 H 106 H 106 H Respiratory Rate 16 20 Blood Pressure 131/75 Pulse Oximetry 96 04/22/19 08:20 04/22/19 12:00 04/22/19 14:00 Temperature 36.7 C Pulse Rate 87 110 H 105 H Respiratory Rate 20 16 Blood Pressure 113/77 Pulse Oximetry 98 04/22/19 14:18 04/22/19 16:00 04/22/19 22:00 Temperature 37.1 C Pulse Rate 107 H 106 H Respiratory Rate 16 Blood Pressure 110/74 134/87 Pulse Oximetry 100 Intake/Output Intake/Output: Intake & Output 04/19/19 04/20/19 04/21/19 04/22/19 23:59 23:59 23:59 23:59 Intake Total 1000 2660 2760 Output Total 1600 3050 Balance 1000 1060 -290 Meds/Results Medications: Active Medications Generic Name Dose Route Start Last Admin Trade Name Freq PRN Reason Stop Dose Admin Acetaminophen 650 mg 04/21/19 01:14 Tylenol Tablet PO Q4H PRN Mild Pain (1-3) or Fever Hydrochlorothiazide 12.5 mg 04/21/19 09:00 04/22/19 08:24 Hydrochlorothiazide PO 12.5 mg DAILY JOHN Administration Levofloxacin/Dextrose 750 mg in 150 mls @ 100 mls/hr 04/22/19 09:00 04/22/19 10:30 Levaquin 750 Mg/D5w 150 Ml IVPB Infused QAM JOHN Infusion Ipratropium [place] 0.5 mg 04/22/19 13:43 Atrovent Neb INHALATION Q6HRT PRN sob Levalbuterol HCl 0.63 mg 04/22/19 13:40 Xopenex 1.25 Mg/3 Ml INHALATION Q6HRT PRN sob Morphine Sulfate 2 mg 04/21/19 08:45 Morphine Sulfate Inj IV PUSH Q4H PRN Cough, pain 7-10 Pantoprazole Sodium 40 mg 04/21/19 09:00 04/22/19 08:24 Protonix Iv IV PUSH 40 mg QAM JOHN Administration Polyethylene Glycol 17 gm 04/22/19 13:40 Miralax PO QAM PRN Constipation Radiology Results: ITS Impressions Head CT 04/21/19 07:24 IMPRESSION: 1. No fracture or acute intracranial process. Chest CTA 04/21/19 08:27 IMPRESSION: 1. No central pulmonary embolism through the segmental pulmonary arteries with more peripheral assessment limited by motion artifact. 2. Severe emphysema in the upper lungs. 3. 5.7 x 4.5 cm right upper lobe mass with enlarged right hilar and mediastinal lymph nodes concerning for metastatic primary bronchogenic carcinoma. 4. Small sliding-type hiatal hernia. 5. 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 Carotid Doppler Study 04/21/19 09:26 IMPRESSION: 1. No appreciable plaque or stenosis in the right inter
[2019-04-23] VITALS (9 sets, daily range): BP systolic 98–130; BP diastolic 60–71; PULSE 100–114; RESP 16–18; TEMP 36.6–37.4; O2SAT 97–99
[2019-04-23 06:07] LABS: Hematocrit 31.9 % (42.0-52.0); Hemoglobin 10.3 g/dL (14.0-18.0); Mean Corpuscular HGB Conc 32.3 g/dl (32-36); Mean Corpuscular Volume 83.5 fl (80-100); Mean Platelet Volume 8.2 fl (7.4-10.4); Platelet Count Result 418 k/mm3 (150-375); Red Blood Count 3.82 M/mm3 (4.6-6.20); Red Cell Distribution Width 13.9 % (11.5-14.5); White Blood Count 9.2 K/mm3 (4.5-10.0)
[2019-04-23 06:25] LABS: Blood Urea Nitrogen 11 mg/dL (9-20); Calcium 8.9 mg/dL (8.4-10.2); Carbon Dioxide 24 mmol/L (22-30); Chloride 99 mmol/L (98-107); Estimated CRCL calculation 63 ml/min; Estimated Glomerular Filt Rate > 60; Glucose 106 mg/dL (75-110); Potassium 3.7 mmol/L (3.4-5.0); Sodium 135 mmol/L (137-145)
--- NOTE | 2019-04-23 06:28 | CONS_ITS ---
DATE OF CONSULTATION: 04/22/2019 REASON FOR CONSULTATION: Lung mass. 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 He has a history of hypertension, came into the hospital with chest pain. He also had a syncopal episode today. He has been having midsternal chest pain off and on for 2 weeks duration. He went to the ER on April [address] chest was performed that showed right upper lobe mass. He denies any hemoptysis and cough. He lost 5 pounds weight in last 4 weeks duration. REVIEW OF SYSTEMS: 12-point review of system was reviewed and as per HPI, otherwise negative. PAST MEDICAL HISTORY: Arthritis, cervical spine fracture, depression, hypertension, right lower lobe lung mass, back injury. PAST SURGICAL HISTORY: Appendectomy, fusion of cervical spine C1-C2, tracheostomy. FAMILY HISTORY: Both parents had cancer of unknown type. SOCIAL HISTORY: The patient denies any history of smoking. He is . He is retired due to disability. HOME MEDICATIONS: Reviewed. ALLERGIES: REVIEWED. PHYSICAL EXAMINATION: GENERAL: This patient is a well-developed, well-nourished male, in no apparent distress, oriented x3. VITAL SIGNS: Per nursing note. HEENT: Normocephalic, atraumatic. Clear oropharynx. LUNGS: Clear to auscultation bilaterally. CARDIOVASCULAR: Regular rate and rhythm. No murmurs. ABDOMEN: Soft, nontender, nondistended. Bowel sounds are positive in all 4 quadrants. No hepatosplenomegaly. EXTREMITIES: No edema. NEURO: Grossly intact. LABORATORY DATA: WBC 8.7, hemoglobin 9.5, platelets 399,000, creatinine 0.7, total bilirubin 0.6. ASSESSMENT AND PLAN: Right upper lobe lung mass with enlarged right hilar and mediastinal lymphadenopathy. This is a 63-year-old male without any history of smoking, came into the hospital with status post syncopal episode along with chest pain and weight loss. He has no history of malignancy in the past. There is family history of malignancy in both parents. The CT scan findings are quite worrisome for primary bronchogenic carcinoma. I have discussed this case with Dr. Mace in Pulmonary Service. The patient had bronchoscopy done. The yield of bronchoscopy is likely low in this situation. The patient is going to have CT-guided biopsy of the lung mass tomorrow. Once the pathological diagnosis is confirmed, we will make further recommendation regarding complete staging that would include PET scan as an outpatient. I have answered all the questions to the patient's satisfaction and provided him my office information for followup. JOHNNY Timothy BRAY M.D. [employer] D [place]: [place]
[2019-04-23] MEDS: hydroCHLOROthiazide 12.5 MG CAPSULE PO (09:20)
[2019-04-23] MEDS: PANTOPRAZOLE SODIUM IV 40 MG VIAL IV PUSH (09:21)
--- NOTE | 2019-04-23 11:56 | PM.IMPN ---
Progress Note: A&P Assessment and Plan (1) Syncope: Qualifiers: Syncope type: unspecified Qualified Code(s): R55 - Syncope and collapse Code(s): R55 - Syncope and collapse Status: Acute Assessment and Plan: -----workup essentially negative. He did have presyncopal symptoms which favors vasovagal. No PE on CTA, no significant stenosis on carotid ultrasound, and no stroke on head CT. No AFib noted and no echo abnormalities. Telemetry reviewed. Continue to keep hydrated and rise slowly from a seated position. (2) Chest pain: Qualifiers: Chest pain type: other chest pain Qualified Code(s): R07.89 - Other chest pain Code(s): R07.9 - Chest pain, unspecified Status: Acute Assessment and Plan: -----Resolved. Likely secondary to lung mass. Troponin negative x3 and no chest pain now. Telemetry reveals sinus tachycardia but no abnormalities. EKG showed sinus tachycardia with left anterior fascicular block. . (3) Sinus tachycardia: Code(s): R00.0 - Tachycardia, unspecified Status: Acute Assessment and Plan: -----the patient did not have tachycardia during his last stay but usually is on the high range of normal. He does not have any palpitations or chest pain currently. Echo looks okay. No PE. Could be due to dehydration, lung disease, anxiety. No BB at home and TSH is normal. Will monitor (4) Lung mass: Code(s): R91.8 - Other nonspecific abnormal finding of lung field Status: Acute Assessment and Plan: -----bronch with washings done 04/21 pending cytology review. Spoke with pulmonology who did not think he would get a high yield since he coudln't get to the area very well. Plan for CT biopsy tomorrow. (5) HTN (hypertension) with goal to be determined: Code(s): I10 - Essential (primary) hypertension Status: Chronic Assessment and Plan: stable. Monitor blood pressure. Continue Hctz Additional Plan Subjective Date/time seen: 04/23/19 11:56 Interval history: Pt is a 63-year-old male here for syncope. Patient was seen today and has no complaints. he was up in the chair and feeling okay. he denies CP, palpitations, SOB, dizziness, or syncope. he has not had a BM since being here but does not want miralax at this time. he says he does not feel weak. he says he is not on any type of beta sarah and has never been told he has a high heart rate that he can recall. Exam Narrative: Exam Narrative: General: Patient resting comfortably in the chair in no acute distress HEENT: normocephalic Neck: supple Neuro: Alert and oriented x 4 CV:slightly tachycardic 110. Tele shows sinus tachycardia without worrisome alarm reviews Resp: mildly decreased sounds in the right upper lung. No wheezing or rhonchi noted on today's exam. Abd: Soft, non distended. No pain to palpation. Positive bowel sounds Extremities: No swelling, erythema, or pain to palpation. Objective Data Vital Signs Vital Signs: Vital Signs - 24 hr 04/22/19 12:00 04/22/19 14:00 04/22/19 14:18 Temperature 98.0 F Pulse Rate 110 H 105 H Respiratory Rate 16 Blood Pressure 113/77 110/74 Pulse Oximetry 98 04/22/19 16:00 04/22/19 20:00 04/22/19 22:00 Temperature 98.7 F Pulse Rate 107 H 110 H 106 H Respiratory Rate 16 Blood Pressure 134/87 Pulse Oximetry 100 04/23/19 00:00 04/23/19 04:00 04/23/19 05:51 Temperature 99.4 F Pulse Rate 107 H 108 H 106 H Respiratory Rate 18 Blood Pressure 130/70 Pulse Oximetry 97 Intake/Output Intake/Output: Intake & Output 04/20/19 04/21/19 04/22/19 04/23/19 23:59 23:59 23:59 23:59 Intake Total 1000 2660 2760 270 Output Total 1600 3050 425 Balance 1000 1060 -290 -155 Meds/Results Medications: Active Medications Generic Name Dose Route Start Last Admin Trade Name Freq PRN Reason Stop Dose Admin Acetaminophen 650 mg 04/03
--- NOTE | 2019-04-23 21:58 | PM.PNPUL ---
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 Brushing from Bronchoscopy is suggesting possible small cell carcinoma. A core CT guided biopsy is still recommend for definitive diagnosis in this case. Review of Systems Review of Systems: All systems reviewed & are unremarkable except as noted in HPI and below Exam Const: General: comfortable and no acute distress HENMT: Mouth: Yes moist mucous membranes Neck: Neck: supple and no JVD Resp: Effort & Inspection: normal respiratory effort Auscultation: clear to auscultation bilaterally, no crackles and no wheezes Cardio: Rate: regular rate Rhythm: regular rhythm Heart sounds: no gallops and no murmurs GI: Auscultation: normal bowel sounds Neuro: Speech: normal speech Extrem: General: normal to inspection (bilateral upper digit clubbing ), no edema and no pedal edema Psych: Mental Status: mental status grossly normal Affect: normal affect Objective Data Vital Signs Vital Signs: Vital Signs - 24 hr 04/22/19 22:00 04/23/19 00:00 04/23/19 04:00 Temperature 37.1 C Pulse Rate 106 H 107 H 108 H Respiratory Rate 16 Blood Pressure 134/87 Pulse Oximetry 100 04/23/19 05:51 04/23/19 08:00 04/23/19 12:00 Temperature 37.4 C Pulse Rate 106 H 108 H 108 H Respiratory Rate 18 Blood Pressure 130/70 Pulse Oximetry 97 04/23/19 14:00 04/23/19 16:00 04/23/19 21:21 Temperature 36.6 C 36.9 C Pulse Rate 110 H 114 H 100 Respiratory Rate 16 16 Blood Pressure 98/60 L 111/71 Pulse Oximetry 97 99 Intake/Output Intake/Output: Intake & Output 04/20/19 04/21/19 04/22/19 04/23/19 23:59 23:59 23:59 23:59 Intake Total 1000 2660 2760 930 Output Total 1600 3050 425 Balance 1000 1060 -290 505 Meds/Results Medications: Active Medications Generic Name Dose Route Start Last Admin Trade Name Freq PRN Reason Stop Dose Admin Acetaminophen 650 mg 04/21/19 01:14 Tylenol Tablet PO Q4H PRN Mild Pain (1-3) or Fever Hydrochlorothiazide 12.5 mg 04/21/19 09:00 04/23/19 09:20 Hydrochlorothiazide PO 12.5 mg DAILY JOHN Administration Levofloxacin/Dextrose 750 mg in 150 mls @ 100 mls/hr 04/22/19 09:00 04/23/19 10:49 Levaquin 750 Mg/D5w 150 Ml IVPB Infused QAM JOHN Infusion Ipratropium [place] 0.5 mg 04/22/19 13:43 Atrovent Neb INHALATION Q6HRT PRN sob Levalbuterol HCl 0.63 mg 04/22/19 13:40 Xopenex 1.25 Mg/3 Ml INHALATION Q6HRT PRN sob Morphine Sulfate 2 mg 04/21/19 08:45 Morphine Sulfate Inj IV PUSH Q4H PRN Cough, pain 7-10 Pantoprazole Sodium 40 mg 04/21/19 09:00 04/23/19 09:21 Protonix Iv IV PUSH 40 mg QAM JOHN Administration Polyethylene Glycol 17 gm 04/22/19 13:40 Miralax PO QAM PRN Constipation Radiology Results: ITS Impressions Head CT 04/21/19 07:24 IMPRESSION: 1. No fracture or acute intracranial process. Chest CTA 04/21/19 08:27 IMPRESSION: 1. No central pulmonary embolism through the segmental pulmonary arteries with more peripheral assessment limited by motion artifact. 2. Severe emphysema in the upper lungs. 3. 5.7 x 4.5 cm right upper lobe mass with enlarged right hilar and mediastinal lymph nodes concerning for metastatic primary bronchogenic carcinoma. 4. Small sliding-type hiatal hernia. 5. 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 Carotid Doppler Study 04/21/19 09:26 IMPRESSION: 1. No appreciable plaque or stenosis in the right internal carotid arter
[2019-04-24] VITALS (13 sets, daily range): BP systolic 92–143; BP diastolic 52–84; PULSE 102–120; RESP 16–22; TEMP 36.7–37.2; O2SAT 96–100
[2019-04-24 06:33] LABS: Hematocrit 31.8 % (42.0-52.0); Hemoglobin 10.5 g/dL (14.0-18.0)
[2019-04-24 07:12] LABS: INR 1.1; Partial Thromboplastin Time 30.2 SECONDS (22.3-36.8); Prothrombin Time 13.5 Seconds (11.1-14.7)
--- NOTE | 2019-04-24 10:20 | PM.PNPUL ---
Progress Note: A&P Assessment and Plan (1) Lung mass: Code(s): R91.8 - Other nonspecific abnormal finding of lung field Status: Acute Assessment and Plan: -Bronchscopy Brushing shows possible small cell lung CA -CT guided core biopsies this morning. -Will arrange for him to have outpatient PFT in anticipation of chemo/radiation therapy. Subjective Date/time seen: 04/24/19 10:20 Interval history: No new complaints, getting CT guided biopsy this morning. Review of Systems Review of Systems: All systems reviewed & are unremarkable except as noted in HPI and below Exam Const: General: comfortable and no acute distress Neck: Neck: supple and no JVD Cardio: Rate: regular rate Rhythm: regular rhythm Heart sounds: no gallops and no murmurs GI: Auscultation: normal bowel sounds Neuro: Speech: normal speech Extrem: General: normal to inspection, normal exam except as noted (bilateral upper extremity clubbing ), no edema and no pedal edema Objective Data Vital Signs Vital Signs: Vital Signs - 24 hr 04/23/19 12:00 04/23/19 14:00 04/23/19 16:00 Temperature 36.6 C Pulse Rate 108 H 110 H 114 H Respiratory Rate 16 Blood Pressure 98/60 L Pulse Oximetry 97 04/23/19 20:00 04/23/19 21:21 04/24/19 00:00 Temperature 36.9 C Pulse Rate 112 H 100 109 H Respiratory Rate 16 Blood Pressure 111/71 Pulse Oximetry 99 04/24/19 04:00 04/24/19 06:00 Temperature 36.7 C Pulse Rate 115 H 107 H Respiratory Rate 16 Blood Pressure 92/52 L Pulse Oximetry 96 Intake/Output Intake/Output: Intake & Output 04/21/19 04/22/19 04/23/19 04/24/19 23:59 23:59 23:59 23:59 Intake Total 2660 2760 930 240 Output Total 1600 3050 425 400 Balance 1060 -290 505 -160 Meds/Results Medications: Active Medications Generic Name Dose Route Start Last Admin Trade Name Freq PRN Reason Stop Dose Admin Acetaminophen 650 mg 04/21/19 01:14 Tylenol Tablet PO Q4H PRN Mild Pain (1-3) or Fever Hydrochlorothiazide 12.5 mg 04/21/19 09:00 04/23/19 09:20 Hydrochlorothiazide PO 12.5 mg DAILY JOHN Administration Lactated Ringer's 1,000 mls @ 75 mls/hr 04/24/19 08:35 Lr - Lactated Ringers Iv IV CONT .[id number] JOHN Ipratropium [place] 0.5 mg 04/22/19 13:43 Atrovent Neb INHALATION Q6HRT PRN sob Levalbuterol HCl 0.63 mg 04/22/19 13:40 Xopenex 1.25 Mg/3 Ml INHALATION Q6HRT PRN sob Morphine Sulfate 2 mg 04/21/19 08:45 Morphine Sulfate Inj IV PUSH Q4H PRN Cough, pain 7-10 Pantoprazole Sodium 40 mg 04/21/19 09:00 04/23/19 09:21 Protonix Iv IV PUSH 40 mg QAM JOHN Administration Polyethylene Glycol 17 gm 04/22/19 13:40 Miralax PO QAM PRN Constipation Radiology Results: ITS Impressions Head CT 04/21/19 07:24 IMPRESSION: 1. No fracture or acute intracranial process. Chest CTA 04/21/19 08:27 IMPRESSION: 1. No central pulmonary embolism through the segmental pulmonary arteries with more peripheral assessment limited by motion artifact. 2. Severe emphysema in the upper lungs. 3. 5.7 x 4.5 cm right upper lobe mass with enlarged right hilar and mediastinal lymph nodes concerning for metastatic primary bronchogenic carcinoma. 4. Small sliding-type hiatal hernia. 5. 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 Carotid Doppler Study 04/21/19 09:26 IMPRESSION: 1. No appreciable plaque or stenosis in the right internal carotid artery. 2. No appreciable plaque or stenosis in the left internal carotid artery. Chest X-Ray 04/21/19 17:02 IMPRESSION: 1. Stable right hilar mass, no pneumothorax. 2. Minimal airspace opacities peripheral to the mass likely reflect atelectasis. Labs Labs: Laboratory Results - last 24 hr 04/24/19 04/24/19 06:14 06:14 Hgb 10.5 L Hct 31.8 L PT 13.5 INR 1.1 APTT 30.2
[2019-04-24] MEDS: PANTOPRAZOLE SODIUM IV 40 MG VIAL IV PUSH (10:27)
[2019-04-24] MEDS: LACTATED RINGERS 1,000 ML 75 ML IV CONT (10:27)
--- NOTE | 2019-04-24 11:58 | PCPTNOTE ---
Attempted PT eval. Pt refused as just back from procedure and is on bedrest. Will try again at later time.
--- NOTE | 2019-04-24 12:35 | WPDONCPN ---
Progress Note: A/P - Additional Plan Right-sided lung mass. Status post CT-guided biopsy. Pathology is pending. Likely bronchogenic carcinoma. Patient will follow with me after discharge for management of lung cancer. Right-sided pneumothorax and pleural effusion status post lung biopsy. Clinically he is not much short of breath. Surgery service consulted for possible chest tube insertion. - Time Spent With Patient Total time spent is greater than 50% in coordination of care (as documented) at patient's floor/unit and/or counseling patient: 15 - 25 minutes Subjective Interval history: Right lung mass Review of Systems - Review of Systems Patient denies any excessive shortness of breath. He had lung biopsy done yesterday. Denies any fevers and chills. Denies any cough and hemoptysis. No other new complaints. Exam Vital signs: Temp Pulse Resp BP Pulse Ox 36.7 C 107 H 20 105/70 100 04/24/19 06:00 04/24/19 10:46 04/24/19 10:46 04/24/19 10:46 04/24/19 10:46 Lungs are clear to auscultation bilaterally Cardiovascular regular rate rhythm no murmurs Abdomen soft nontender nondistended bowel sounds are positive Extremities no edema PN: Objective Data - Labs CBC & Chem 7: 04/24/19 06:14 04/23/19 05:48 Labs: Laboratory Results - last 24 hr 04/24/19 04/24/19 06:14 06:14 Hgb 10.5 L Hct 31.8 L PT 13.5 INR 1.1 APTT 30.2
--- NOTE | 2019-04-24 13:04 | PCDIET ---
Nutrition Follow-Up Complete: Inadequate oral intake r/t decreased appetite to consume sufficient energy as evidence by BMI 18.1 Initiate diet Goal:Goal met. Continue with current goal. Pt current nutrition is regular. Nutrition recommendation: Agree Last recorded weight is 52.5 kg. (need new wt) Bowel Motility: Labs Reviewed: Na 135 Meds Noted:LRs Protonix Additional Notes: Pt underweight. Regular diet started and intakes at 100%. Pt interested in trying Enlive. We will send BID and encouraged after d/c to help meet nutrition needs. Ensure Enlive provides 350kcal, 20g of protein, and 26 essential vitamins and minerals per serving. Pt UBW is 132-137lbs. Currently 116lbs. We will continue to monitor PO intake and wt every five days.
--- NOTE | 2019-04-24 13:39 | PM.CNGS ---
Assessment and Plan Assessment and plan (1) Pneumothorax of right lung after biopsy: Code(s): J95.811 - Postprocedural pneumothorax Status: Acute Assessment and Plan: Chest x-rays reviewed and discussed with the patient. The most recent chest x-ray which would have been about 2 hours after the last chest x-ray, appears to have interval increase in size of the right pneumothorax. It appears the Radiologist has placed an order for CT guided chest tube placement. After chest tube placement, the chest tube should be connected to a PleurEvac and put to -20cm wall suction. We will continue to follow the chest tube after placement. We will repeat a chest x-ray tomorrow morning. Thank you for allowing me to evaluate the patient in consultation and we will continue to follow along with you. (2) Lung mass: Code(s): R91.8 - Other nonspecific abnormal finding of lung field Status: Acute (3) H/O: HTN (hypertension): Code(s): Z86.79 - Personal history of other diseases of the circulatory system Status: Acute Additional Plan Discussed the patient's case and plan of care with Dr. Mackay. History of Present Illness Consult details Consult date: 04/24/19 Reason for consult: chest tube (Interval development of right pneumothorax following CT-guided biopsy of right upper lobe mass.) Requesting physician: Jeannie Colon PA-C Narrative: This is a 63-year-old male with a history of hypertension, who recently was found to have a right upper lobe lung mass on a CT scan after presenting to the ER with chest pain on 04/14/19. He was set up for follow-up with his PCP. He then returned back to the ED on 04/20/19 due to a syncopal episode with also complaints of chest pain, cough, and shortness of breath. The patient was admitted to the Hospitalist service. His chest pain has since subsided. Oncology and Pulmonology was consulted. He underwent a Bronchoscopy with brushing on 04/21/19 that showed possible small cell lung CA. The right upper lung mass appeared concerning for primary bronchogenic carcinoma and he was set up for a CT-guided biopsy of the right lung mass today in Radiology. The chest x-ray following this procedure showed interval development of a small right pneumothorax. The patient was stable and the Radiologist had planned to do a repeat chest x-ray 3 hours after the procedure. Our service was consulted to follow the right pneumothorax and to evaluate for possible need for chest tube placement. The patient is now being seen on the medical floor. His oxygen saturation is stable on the nasal cannula. He denies any shortness of breath or difficulty breathing. Reports a cough and is frequently clearing his throat while talking to me. Denies any chest pain at this time. Does report about a 6 pound weight loss in the past 6 months. No other complaints at this time. Review of Systems Constitutional: Constitutional: Reports as per HPI, Denies chills, Denies excessive sweating, Denies fatigue, Denies fever(s), Denies headache(s) and Denies weakness Eyes: Eyes: Denies change in vision and Denies loss of vision ENT: Reports Normal hearing present, Denies dizziness and Denies headache(s) Cardiovascular: Cardiovascular: Denies chest pain, Reports syncope, Denies leg edema, Denies lightheadedness, Denies radiating jaw, neck or arm pain and Denies dyspnea Respiratory: Respiratory: Reports as per HPI, Reports cough, Denies hemoptysis, Denies dyspnea and Denies wheezing Gastrointestinal: Gastrointestinal: Denies abdominal pain, Denies bloating, Denies change in bowel habits, Denies constipation, Denies diarrhea, Denies nausea and Denies vomiting Musculoskeletal: Musculoskeletal: Denies deformity, Denies joint swelling, Denies radiating pain into limb and Denies tingling Integumentary/Breasts: Skin/Breast: Denies pruritus, Denies wounds and Denies jaundice Neurologic: Denies confusion, Denies tingling, Denies tremor(s) and Bhaskar
--- NOTE | 2019-04-24 14:53 | PCPTNOTE ---
Attempted PT eval. Pt off floor for procedure. Will try again tomorrow.
[2019-04-24] MEDS: hydroCHLOROthiazide 12.5 MG CAPSULE PO (17:17)
[2019-04-24] MEDS: MORPHINE SULFATE 2 MG/ML INJ IV PUSH (19:06)
--- NOTE | 2019-04-24 21:13 | PM.IMPN ---
Progress Note: A&P Assessment and Plan (1) Syncope: Qualifiers: Syncope type: unspecified Qualified Code(s): R55 - Syncope and collapse Code(s): R55 - Syncope and collapse Status: Acute Assessment and Plan: -----workup essentially negative. He did have presyncopal symptoms which favors vasovagal. No PE on CTA, no significant stenosis on carotid ultrasound, and no stroke on head CT. No AFib noted and no echo abnormalities. Telemetry reviewed. Continue to keep hydrated and rise slowly from a seated position. (2) Chest pain: Qualifiers: Chest pain type: other chest pain Qualified Code(s): R07.89 - Other chest pain Code(s): R07.9 - Chest pain, unspecified Status: Acute Assessment and Plan: -----Resolved. Likely secondary to lung mass. Troponin negative x3 and no chest pain now. Telemetry reveals sinus tachycardia but no abnormalities. EKG showed sinus tachycardia with left anterior fascicular block. . (3) Sinus tachycardia: Code(s): R00.0 - Tachycardia, unspecified Status: Acute Assessment and Plan: -----the patient did not have tachycardia during his last stay but usually is on the high range of normal. He does not have any palpitations or chest pain currently. Echo looks okay. No PE. Could be due to dehydration, lung disease, anxiety. No BB at home and TSH is normal. Will monitor (4) Lung mass: Code(s): R91.8 - Other nonspecific abnormal finding of lung field Status: Acute Assessment and Plan: -----bronch with washings done 04/[address] guided bx pending. Cytology favors small tanvir. (5) HTN (hypertension) with goal to be determined: Code(s): I10 - Essential (primary) hypertension Status: Chronic Assessment and Plan: stable. Monitor blood pressure. Continue Hctz (6) Small cell lung cancer: Code(s): C34.90 - Malignant neoplasm of unspecified part of unspecified bronchus or lung Status: Acute Assessment and Plan: -----Seen on cytology. Oncology consulted. Plan for a PET scan outpt. Spoke with [facility] about brain w/u but since he is getting a PET scan, will be able to stage the cancer and decide treatment from there. Monitor for neurological symptoms. None present at this time. (7) Pneumothorax of right lung after biopsy: Code(s): J95.811 - Postprocedural pneumothorax Status: Acute Assessment and Plan: -----Pt is not hypxic and is stable at this time. Sx onboard. Additional Plan Subjective Date/time seen: 04/24/19 21:13 Interval history: Pt is a 63-year-old male here for syncope. Patient was seen today after his bx and had no complaints. He was not having any SOB or irritation at the bx site. He is hungry but understands why he can't eat. he denies CP, palpitations, dizziness, or syncope. he has not had a BM since being here but does not want miralax at this time and will maybe take some 'after all this is over later tonight'. he says he does not feel weak. Exam Narrative: Exam Narrative: General: Patient resting comfortably in the bed in no acute distress HEENT: normocephalic Neck: supple Neuro: Alert and oriented x 4 CV:slightly tachycardic 110. Tele shows sinus tachycardia without worrisome alarm reviews Resp: mildly decreased sounds in the right upper lung. incision site clean without bleeding. No wheezing or rhonchi noted on today's exam. Abd: Soft, non distended. No pain to palpation. Positive bowel sounds Extremities: No swelling, erythema, or pain to palpation. Objective Data Vital Signs Vital Signs: Vital Signs - 24 hr 04/23/19 21:21 04/24/19 00:00 04/24/19 04:00 Temperature 98.4 F Pulse Rate 100 109 H 115 H Respiratory Rate 16 Blood Pressure 111/71 Pulse Oximetry 99 04/24/19 06:00 04/24/19 08:00 04/24/19 10:41 Temperature 98.1 F Pulse Rate 10
[2019-04-25] VITALS (9 sets, daily range): BP systolic 115–122; BP diastolic 64–71; PULSE 99–112; RESP 16–20; TEMP 36.8–37.1; O2SAT 98–100
[2019-04-25] MEDS: LACTATED RINGERS 1,000 ML 75 ML IV CONT ×2 (00:04→12:26)
[2019-04-25] MEDS: MORPHINE SULFATE 2 MG/ML INJ IV PUSH ×4 (01:40→22:33)
[2019-04-25 05:58] LABS: Hematocrit 30.5 % (42.0-52.0); Hemoglobin 10.1 g/dL (14.0-18.0); Mean Corpuscular HGB Conc 33.1 g/dl (32-36); Mean Corpuscular Hemoglobin 27.2 pg (26-34); Mean Platelet Volume 7.9 fl (7.4-10.4); Platelet Count Result 446 k/mm3 (150-375); Red Blood Count 3.72 M/mm3 (4.6-6.20); Red Cell Distribution Width 13.7 % (11.5-14.5); White Blood Count 8.9 K/mm3 (4.5-10.0)
[2019-04-25 06:11] LABS: Blood Urea Nitrogen 15 mg/dL (9-20); Calcium 8.6 mg/dL (8.4-10.2); Carbon Dioxide 27 mmol/L (22-30); Chloride 96 mmol/L (98-107); Estimated CRCL calculation 71 ml/min; Estimated Glomerular Filt Rate > 60; Glucose 104 mg/dL (75-110); Potassium 3.7 mmol/L (3.4-5.0); Sodium 132 mmol/L (137-145)
[2019-04-25] MEDS: hydroCHLOROthiazide 12.5 MG CAPSULE PO (08:22)
[2019-04-25] MEDS: PANTOPRAZOLE SODIUM IV 40 MG VIAL IV PUSH (08:22)
--- NOTE | 2019-04-25 10:21 | PM.PNPUL ---
Progress Note: A&P Assessment and Plan (1) Lung mass: Code(s): R91.8 - Other nonspecific abnormal finding of lung field Status: Acute Assessment and Plan: - CT core lung biopsy path pending - pneumothorax has resolved. - outpatient PFT ordered. Subjective Date/time seen: 04/25/19 10:21 Interval history: Recieved small bore chest tube yesterday for pneumothorax. CXR this morning shows expanded lung with no significant pneumothorax. There is no appreciable leak in the chamber with coughing. He feels well but complains of tiredness from not sleeping. Review of Systems Review of Systems: All systems reviewed & are unremarkable except as noted in HPI and below Exam Const: General: comfortable and no acute distress Neck: Neck: supple and no JVD Resp: Effort & Inspection: normal respiratory effort Auscultation: clear to auscultation bilaterally, no crackles and no wheezes Cardio: Rate: regular rate Rhythm: regular rhythm Heart sounds: no gallops and no murmurs GI: Auscultation: normal bowel sounds Neuro: Speech: normal speech Extrem: Other: bilateral upper digit clubbing. Psych: Mental Status: mental status grossly normal Affect: Sad affect present Objective Data Vital Signs Vital Signs: Vital Signs - 24 hr 04/24/19 10:41 04/24/19 10:46 04/24/19 12:00 Temperature Pulse Rate 120 H 107 H 118 H Respiratory Rate 22 H 20 Blood Pressure 113/79 105/70 Pulse Oximetry 98 100 04/24/19 14:00 04/24/19 15:33 04/24/19 15:36 Temperature 37.2 C Pulse Rate 105 H 111 H 102 H Respiratory Rate 16 18 18 Blood Pressure 124/78 118/80 126/84 Pulse Oximetry 100 99 100 04/24/19 16:00 04/24/19 20:00 04/24/19 22:00 Temperature 37.1 C Pulse Rate 111 H 107 H 102 H Respiratory Rate 18 Blood Pressure 143/76 H Pulse Oximetry 99 04/25/19 00:00 04/25/19 04:00 04/25/19 06:00 Temperature 36.8 C Pulse Rate 99 99 102 H Respiratory Rate 20 Blood Pressure 122/64 Pulse Oximetry 99 Intake/Output Intake/Output: Intake & Output 04/22/19 04/23/19 04/24/19 04/25/19 23:59 23:59 23:59 23:59 Intake Total 2760 930 2120 442 Output Total 3050 425 850 500 Balance -905 759 2036 -58 Meds/Results Medications: Active Medications Generic Name Dose Route Start Last Admin Trade Name Freq PRN Reason Stop Dose Admin Acetaminophen 650 mg 04/21/19 01:14 Tylenol Tablet PO Q4H PRN Mild Pain (1-3) or Fever Hydrochlorothiazide 12.5 mg 04/21/19 09:00 04/25/19 08:22 Hydrochlorothiazide PO 12.5 mg DAILY JOHN Administration Lactated Ringer's 1,000 mls @ 75 mls/hr 04/24/19 08:35 04/25/19 00:04 Lr - Lactated Ringers Iv IV CONT 75 mls/hr .[id number] JOHN Administration Ipratropium [place] 0.5 mg 04/22/19 13:43 Atrovent Neb INHALATION Q6HRT PRN sob Levalbuterol HCl 0.63 mg 04/22/19 13:40 Xopenex 1.25 Mg/3 Ml INHALATION Q6HRT PRN sob Morphine Sulfate 2 mg 04/21/19 08:45 04/25/19 08:21 Morphine Sulfate Inj IV PUSH 2 mg Q4H PRN Administration Cough, pain 7-10 Pantoprazole Sodium 40 mg 04/21/19 09:00 04/25/19 08:22 Protonix Iv IV PUSH 40 mg QAM JOHN Administration Polyethylene Glycol 17 gm 04/22/19 13:40 Miralax PO QAM PRN Constipation Zolpidem Tartrate 2.5 mg 04/25/19 10:20 Ambien PO HS PRN Insomnia Radiology Results: ITS Impressions Head CT 04/21/19 07:24 IMPRESSION: 1. No fracture or acute intracranial process. Chest CTA 04/21/19 08:27 IMPRESSION: 1. No central pulmonary embolism through the segmental pulmonary arteries with more peripheral assessment limited by motion artifact. 2. Severe emphysema in the upper lungs. 3. 5.7 x 4.5 cm right upper lobe mass with enlarged right hilar and mediastinal lymph nodes concerning for metastatic primary bronchogenic carcinoma. 4. Small sliding-type hiatal hernia. 5. 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
--- NOTE | 2019-04-25 11:39 | PM.IMPN ---
Progress Note: A&P Assessment and Plan (1) Syncope: Qualifiers: Syncope type: unspecified Qualified Code(s): R55 - Syncope and collapse Code(s): R55 - Syncope and collapse Status: Acute Assessment and Plan: -----workup essentially negative. He did have presyncopal symptoms which favors vasovagal. No PE on CTA, no significant stenosis on carotid ultrasound, and no stroke on head CT. No AFib noted and no echo abnormalities. Telemetry reviewed. Continue to keep hydrated and rise slowly from a seated position. (2) Chest pain: Qualifiers: Chest pain type: other chest pain Qualified Code(s): R07.89 - Other chest pain Code(s): R07.9 - Chest pain, unspecified Status: Acute Assessment and Plan: -----Resolved. Likely secondary to lung mass. Troponin negative x3 and no chest pain now. Telemetry reveals sinus tachycardia but no abnormalities. EKG showed sinus tachycardia with left anterior fascicular block. . (3) Sinus tachycardia: Code(s): R00.0 - Tachycardia, unspecified Status: Acute Assessment and Plan: -----the patient did not have tachycardia during his last stay but usually is on the high range of normal. He does not have any palpitations or chest pain currently. Echo looks okay. No PE. Could be due to dehydration, lung disease, anxiety. No BB at home and TSH is normal. Will monitor (4) Lung mass: Code(s): R91.8 - Other nonspecific abnormal finding of lung field Status: Acute Assessment and Plan: -----bronch with washings done 04/[address] guided bx pending. Cytology favors small cell. (5) HTN (hypertension) with goal to be determined: Code(s): I10 - Essential (primary) hypertension Status: Chronic Assessment and Plan: stable 122/64. Monitor blood pressure. (6) Small cell lung cancer: Code(s): C34.90 - Malignant neoplasm of unspecified part of unspecified bronchus or lung Status: Acute Assessment and Plan: -----Seen on cytology. Oncology consulted. Plan for a PET scan outpt. 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 Monitor for neurological symptoms. None present at this time. (7) Pneumothorax of right lung after biopsy: Code(s): J95.811 - Postprocedural pneumothorax Status: Acute Assessment and Plan: -----Pt is not hypxic and is stable at this time. Sx onboard, continue with their further recommendations. Additional Plan Subjective Date/time seen: 04/25/19 11:39 Interval history: Pt is a 63-year-old male here for syncope now status post lung biopsy. Patient was seen today and says he is tired because he did not get much sleep. He says that he is not in any pain and not having any shortness of breath. He says he has exhausted from his 2 procedures yesterday. He denies cough, CP, syncope, weakness, abdominal pain, nausea, or vomiting. He finally had a bowel movement yesterday and feels better. Exam Narrative: Exam Narrative: General: Patient resting comfortably in the bed in no acute distress HEENT: normocephalic Neck: supple Neuro: Alert and oriented x 4 CV:slightly tachycardic 110. Tele shows sinus tachycardia without worrisome alarm reviews Resp: CTA. No wheezing or rhonchi noted on today's exam. Abd: Soft, non distended. No pain to palpation. Positive bowel sounds Extremities: No swelling, erythema, or pain to palpation. Objective Data Vital Signs Vital Signs: Vital Signs - 24 hr 04/24/19 12:00 04/24/19 14:00 04/24/19 15:33 Temperature 98.9 F Pulse Rate 118 H 105 H 111 H Respiratory Rate 16 18 Blood Pressure 124/78 118/80 Pulse Oximetry 100 99 04/24/19 15:36 04/24/19 16:00 04/24/19 20:00 Temperature Pulse Rate 102 H 111 H 107 H Respiratory Ra
--- NOTE | 2019-04-25 14:16 | PM.PNGS ---
Progress Note: A&P Assessment and Plan (1) Pneumothorax of right lung after biopsy: Code(s): J95.811 - Postprocedural pneumothorax Status: Acute Assessment and Plan: Chest x-ray this morning showed no pneumothorax. There is no air leak on exam. Will put the chest tube to water seal today and repeat a chest x-ray tomorrow morning. If there is no pneumothorax on the chest x-ray tomorrow, then hopefully we will be able to remove the chest tube. (2) Small cell lung cancer: Code(s): C34.90 - Malignant neoplasm of unspecified part of unspecified bronchus or lung Status: Acute (3) HTN (hypertension) with goal to be determined: Code(s): I10 - Essential (primary) hypertension Status: Chronic Subjective Subjective Date/Time Seen: 04/25/19 13:16 Interval history: Patient seen and examined. No new complaints. Reports feeling slightly sore at the insertion site of the chest tube but no real pain. Denies shortness of breath. No acute events overnight. Anterior segment of right lung brushing favors small cell carcinoma. Review of Systems Review of Systems: All systems reviewed & are unremarkable except as noted in HPI and below Exam Const: General: comfortable, no acute distress, alert and awake Resp: Effort & Inspection: normal respiratory effort, able to speak in complete sentences and no respiratory distress Auscultation: clear to auscultation bilaterally Other: Chest tube to anterior chest working well on wall suction. No air leak or crepitus. Tubing connections secured. Extrem: General: normal to inspection and full ROM Psych: Mental Status: mental status grossly normal Attitude: cooperative Thought process: Normal thought process present Objective Data Vital Signs Vital Signs: Vital Signs - 24 hr 04/24/19 15:33 04/24/19 15:36 04/24/19 16:00 Temperature Pulse Rate 111 H 102 H 111 H Respiratory Rate 18 18 Blood Pressure 118/80 126/84 Pulse Oximetry 99 100 04/24/19 20:00 04/24/19 22:00 04/25/19 00:00 Temperature 37.1 C Pulse Rate 107 H 102 H 99 Respiratory Rate 18 Blood Pressure 143/76 H Pulse Oximetry 99 04/25/19 04:00 04/25/19 06:00 04/25/19 08:00 Temperature 36.8 C Pulse Rate 99 102 H 103 H Respiratory Rate 20 Blood Pressure 122/64 Pulse Oximetry 99 Intake/Output Intake/Output: Intake & Output 04/22/19 04/23/19 04/24/19 04/25/19 23:59 23:59 23:59 23:59 Intake Total 2760 930 2120 1442 Output Total 3050 425 850 500 Balance -595 265 7958 942 Meds/Results Medications: Active Medications Generic Name Dose Route Start Last Admin Trade Name Freq PRN Reason Stop Dose Admin Acetaminophen 650 mg 04/21/19 01:14 Tylenol Tablet PO Q4H PRN Mild Pain (1-3) or Fever Hydrochlorothiazide 12.5 mg 04/21/19 09:00 04/25/19 08:22 Hydrochlorothiazide PO 12.5 mg DAILY JOHN Administration Lactated Ringer's 1,000 mls @ 75 mls/hr 04/24/19 08:35 04/25/19 12:26 Lr - Lactated Ringers Iv IV CONT 75 mls/hr .[id number] JOHN Administration Ipratropium [place] 0.5 mg 04/22/19 13:43 Atrovent Neb INHALATION Q6HRT PRN sob Levalbuterol HCl 0.63 mg 04/22/19 13:40 Xopenex 1.25 Mg/3 Ml INHALATION Q6HRT PRN sob Morphine Sulfate 2 mg 04/21/19 08:45 04/25/19 08:21 Morphine Sulfate Inj IV PUSH 2 mg Q4H PRN Administration Cough, pain 7-10 Pantoprazole Sodium 40 mg 04/21/19 09:00 04/25/19 08:22 Protonix Iv IV PUSH 40 mg QAM JOHN Administration Polyethylene Glycol 17 gm 04/22/19 13:40 Miralax PO QAM PRN Constipation Zolpidem Tartrate 2.5 mg 04/25/19 10:20 Ambien PO HS PRN Insomnia Radiology Results: ITS Impressions Head CT 04/21/19 07:24 IMPRESSION: 1. No fracture or acute intracranial process. Chest CTA 04/21/19 08:27 IMPRESSION: 1. No central pulmonary embolism through the segmental pulmonary arteries with more
[2019-04-26] VITALS (7 sets, daily range): BP systolic 103–120; BP diastolic 56–85; PULSE 98–105; RESP 18; TEMP 36.6–37; O2SAT 96–99
[2019-04-26] MEDS: LACTATED RINGERS 1,000 ML 75 ML IV CONT (03:58)
[2019-04-26 06:28] LABS: Hematocrit 29.4 % (42.0-52.0); Hemoglobin 9.6 g/dL (14.0-18.0)
[2019-04-26 06:45] LABS: Blood Urea Nitrogen 14 mg/dL (9-20); Calcium 8.6 mg/dL (8.4-10.2); Carbon Dioxide 29 mmol/L (22-30); Chloride 92 mmol/L (98-107); Estimated CRCL calculation 71 ml/min; Estimated Glomerular Filt Rate > 60; Glucose 101 mg/dL (75-110); Potassium 3.6 mmol/L (3.4-5.0); Sodium 129 mmol/L (137-145)
[2019-04-26] MEDS: ACETAMINOPHEN 325 MG TABLET 650 MG PO (08:45)
[2019-04-26] MEDS: hydroCHLOROthiazide 12.5 MG CAPSULE PO (08:46)
[2019-04-26] MEDS: PANTOPRAZOLE SODIUM IV 40 MG VIAL IV PUSH (08:46)
--- NOTE | 2019-04-26 12:34 | PM.PNPUL ---
Progress Note: A&P Assessment and Plan (1) Lung mass: Code(s): R91.8 - Other nonspecific abnormal finding of lung field Status: Acute Assessment and Plan: - CT core lung biopsy path pending - pneumothorax has resolved. - outpatient PFT ordered. Subjective Date/time seen: 04/26/19 12:34 Interval history: Feeling a bit weak but no complains. Chest tube clamped yesterday and CXR this morning shows no residual pneumothorax. No air leak in chest tube chamber this morning. Review of Systems Review of Systems: All systems reviewed & are unremarkable except as noted in HPI and below Exam Const: General: comfortable and no acute distress HENMT: Mouth: Yes moist mucous membranes Neck: Neck: supple and no JVD Resp: Auscultation: clear to auscultation bilaterally and diminished lung sounds Cardio: Rate: regular rate Rhythm: regular rhythm GI: Auscultation: normal bowel sounds Extrem: General: normal to inspection, no edema and no pedal edema Psych: Mental Status: mental status grossly normal Affect: normal affect Objective Data Vital Signs Vital Signs: Vital Signs - 24 hr 04/25/19 14:00 04/25/19 16:00 04/25/19 20:00 Temperature 37.1 C Pulse Rate 107 H 110 H 101 H Respiratory Rate 18 Blood Pressure 115/71 Pulse Oximetry 98 04/25/19 21:32 04/26/19 00:00 04/26/19 04:00 Temperature 36.8 C Pulse Rate 107 H 103 H 104 H Respiratory Rate 16 Blood Pressure 115/70 Pulse Oximetry 100 04/26/19 06:00 04/26/19 08:00 Temperature 37.0 C Pulse Rate 98 104 H Respiratory Rate 18 Blood Pressure 103/56 L Pulse Oximetry 99 Intake/Output Intake/Output: Intake & Output 04/23/19 04/24/19 04/25/19 04/26/19 23:59 23:59 23:59 23:59 Intake Total 930 2120 1862 1840 Output Total 097 770 8504 600 Balance 505 6834 024 3378 Meds/Results Medications: Active Medications Generic Name Dose Route Start Last Admin Trade Name Freq PRN Reason Stop Dose Admin Acetaminophen 650 mg 04/21/19 01:14 04/26/19 08:45 Tylenol Tablet PO 650 mg Q4H PRN Administration Mild Pain (1-3) or Fever Hydrochlorothiazide 12.5 mg 04/21/19 09:00 04/26/19 08:46 Hydrochlorothiazide PO 12.5 mg DAILY JOHN Administration Ipratropium [place] 0.5 mg 04/22/19 13:43 Atrovent Neb INHALATION Q6HRT PRN sob Levalbuterol HCl 0.63 mg 04/22/19 13:40 Xopenex 1.25 Mg/3 Ml INHALATION Q6HRT PRN sob Morphine Sulfate 2 mg 04/21/19 08:45 04/25/19 22:33 Morphine Sulfate Inj IV PUSH 2 mg Q4H PRN Administration Cough, pain 7-10 Pantoprazole Sodium 40 mg 04/21/19 09:00 04/26/19 08:46 Protonix Iv IV PUSH 40 mg QAM JOHN Administration Polyethylene Glycol 17 gm 04/22/19 13:40 Miralax PO QAM PRN Constipation Zolpidem Tartrate 2.5 mg 04/25/19 10:20 Ambien PO HS PRN Insomnia Radiology Results: ITS Impressions Head CT 04/21/19 07:24 IMPRESSION: 1. No fracture or acute intracranial process. Chest CTA 04/21/19 08:27 IMPRESSION: 1. No central pulmonary embolism through the segmental pulmonary arteries with more peripheral assessment limited by motion artifact. 2. Severe emphysema in the upper lungs. 3. 5.7 x 4.5 cm right upper lobe mass with enlarged right hilar and mediastinal lymph nodes concerning for metastatic primary bronchogenic carcinoma. 4. Small sliding-type hiatal hernia. 5. 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 Carotid Doppler Study 04/21/19 09:26 IMPRESSION: 1. No appreciable plaque or stenosis in the right internal carotid artery. 2. No appreciable plaque or stenosis in the left internal carotid artery. Lung Biopsy CT 04/24/19 11:49 IMPRESSION: 1. Successful CT-guided biopsy of 6.0 x 4.8 cm right upper lobe mass. 2. Emphysema. Chest Tube Insertion 04/24/19 15:45 IMPRESSION: 1. Successful CT-guided right chest tube placement. 2. The chest tube will be karla
--- NOTE | 2019-04-26 13:29 | PM.PNGS ---
Progress Note: A&P Assessment and Plan (1) Pneumothorax of right lung after biopsy: Code(s): J95.811 - Postprocedural pneumothorax Status: Acute Assessment and Plan: I reviewed the chest x-ray this morning. There is no sign of residual pneumothorax. Chest tube was removed at the bedside. Will get follow-up chest x-ray at 4:00 p.m. today. If there is no recurrent pneumothorax, then patient will be able to be discharged. (2) Small cell lung cancer: Code(s): C34.90 - Malignant neoplasm of unspecified part of unspecified bronchus or lung Status: Acute Subjective Subjective Date/Time Seen: 04/26/19 13:29 No shortness of breath or chest pain. Exam Resp: Effort & Inspection: normal respiratory effort Auscultation: clear to auscultation bilaterally and no wheezes Percussion: percussion normal Other: Right chest tube in place with no sign of air leak Objective Data Vital Signs Vital Signs: Vital Signs - 24 hr 04/25/19 14:00 04/25/19 16:00 04/25/19 20:00 Temperature 37.1 C Pulse Rate 107 H 110 H 101 H Respiratory Rate 18 Blood Pressure 115/71 Pulse Oximetry 98 04/25/19 21:32 04/26/19 00:00 04/26/19 04:00 Temperature 36.8 C Pulse Rate 107 H 103 H 104 H Respiratory Rate 16 Blood Pressure 115/70 Pulse Oximetry 100 04/26/19 06:00 04/26/19 08:00 Temperature 37.0 C Pulse Rate 98 104 H Respiratory Rate 18 Blood Pressure 103/56 L Pulse Oximetry 99 Intake/Output Intake/Output: Intake & Output 04/23/19 04/24/19 04/25/19 04/26/19 23:59 23:59 23:59 23:59 Intake Total 930 2120 1862 1840 Output Total 271 300 8641 600 Balance 505 9046 752 8741 Meds/Results Medications: Active Medications Generic Name Dose Route Start Last Admin Trade Name Freq PRN Reason Stop Dose Admin Acetaminophen 650 mg 04/21/19 01:14 04/26/19 08:45 Tylenol Tablet PO 650 mg Q4H PRN Administration Mild Pain (1-3) or Fever Hydrochlorothiazide 12.5 mg 04/21/19 09:00 04/26/19 08:46 Hydrochlorothiazide PO 12.5 mg DAILY JOHN Administration Ipratropium [place] 0.5 mg 04/22/19 13:43 Atrovent Neb INHALATION Q6HRT PRN sob Levalbuterol HCl 0.63 mg 04/22/19 13:40 Xopenex 1.25 Mg/3 Ml INHALATION Q6HRT PRN sob Morphine Sulfate 2 mg 04/21/19 08:45 04/25/19 22:33 Morphine Sulfate Inj IV PUSH 2 mg Q4H PRN Administration Cough, pain 7-10 Pantoprazole Sodium 40 mg 04/21/19 09:00 04/26/19 08:46 Protonix Iv IV PUSH 40 mg QAM JOHN Administration Polyethylene Glycol 17 gm 04/22/19 13:40 Miralax PO QAM PRN Constipation Zolpidem Tartrate 2.5 mg 04/25/19 10:20 Ambien PO HS PRN Insomnia Radiology Results: ITS Impressions Head CT 04/21/19 07:24 IMPRESSION: 1. No fracture or acute intracranial process. Chest CTA 04/21/19 08:27 IMPRESSION: 1. No central pulmonary embolism through the segmental pulmonary arteries with more peripheral assessment limited by motion artifact. 2. Severe emphysema in the upper lungs. 3. 5.7 x 4.5 cm right upper lobe mass with enlarged right hilar and mediastinal lymph nodes concerning for metastatic primary bronchogenic carcinoma. 4. Small sliding-type hiatal hernia. 5. 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 Carotid Doppler Study 04/21/19 09:26 IMPRESSION: 1. No appreciable plaque or stenosis in the right internal carotid artery. 2. No appreciable plaque or stenosis in the left internal carotid artery. Lung Biopsy CT 04/24/19 11:49 IMPRESSION: 1. Successful CT-guided biopsy of 6.0 x 4.8 cm right upper lobe mass. 2. Emphysema. Chest Tube Insertion 04/24/19 15:45 IMPRESSION: 1. Successful CT-guided right chest tube placement. 2. The chest tube will be managed by Dr. Mackay. Chest X-Ray 04/26/19 11:55 IMPRESSION: No evidence of pneumothorax following thoracostomy tube placement Right upper lobe pulmona
--- NOTE | 2019-04-26 13:36 | PM.DS ---
DS: Diagnosis Admitting Diagnosis Admitting Diagnosis: Other nonspecific abnormal finding of lung field Discharge Diagnosis (1) Syncope: Qualifiers: Syncope type: unspecified Qualified Code(s): R55 - Syncope and collapse Code(s): R55 - Syncope and collapse Status: Acute Assessment and Plan: -----workup essentially negative. He did have presyncopal symptoms which favors vasovagal. No PE on CTA, no significant stenosis on carotid ultrasound, and no stroke on head CT. No AFib noted and no echo abnormalities. Telemetry reviewed. Continue to keep hydrated and rise slowly from a seated position. (2) Chest pain: Qualifiers: Chest pain type: other chest pain Qualified Code(s): R07.89 - Other chest pain Code(s): R07.9 - Chest pain, unspecified Status: Acute Assessment and Plan: -----Resolved. Likely secondary to lung mass. Troponin negative x3 and no chest pain now. Telemetry reveals sinus tachycardia but no abnormalities. EKG showed sinus tachycardia with left anterior fascicular block. . (3) Sinus tachycardia: Code(s): R00.0 - Tachycardia, unspecified Status: Acute Assessment and Plan: -----the patient did not have tachycardia during his last stay but usually is on the high range of normal. He does not have any palpitations or chest pain currently. Echo looks okay. No PE. Could be due to dehydration, lung disease, anxiety. No BB at home and TSH is normal. (4) Lung mass: Code(s): R91.8 - Other nonspecific abnormal finding of lung field Status: Acute Assessment and Plan: -----small cell vs adenocarcinoma (5) HTN (hypertension) with goal to be determined: Code(s): I10 - Essential (primary) hypertension Status: Chronic Assessment and Plan: stable 120/85. Monitor blood pressure. (6) Small cell lung cancer: Code(s): C34.90 - Malignant neoplasm of unspecified part of unspecified bronchus or lung Status: Acute Assessment and Plan: -----Seen on cytology. Oncology consulted. Plan for a PET scan outpt. Spoke with pelt salter about brain w/u but since he is getting a PET scan, will be able to stage the cancer and decide treatment from there. Monitor for neurological symptoms. None present at this time. (7) Pneumothorax of right lung after biopsy: Code(s): J95.811 - Postprocedural pneumothorax Status: Acute Assessment and Plan: -----resolved DS: Summary Hospital Course Reason for hospitalization: Syncope Hospital Course: Patient is a 63-year-old male who presented emergency room for syncopal episode while using the bathroom prior that evening. He had presyncopal symptoms such as dizziness and diaphoresis. Vitals in the ER were temperature 37.1? C, pulse 120, respiratory rate 26, blood pressure 127/84, pulse ox 100 on room air. Patient was previously diagnosed with a lung mass earlier in the month and was supposed to get a outpatient workup. White blood cell count 12.5, hemoglobin 12.3, hematocrit 37.6, platelets 510. Sodium 132, potassium 3.7, chloride 96, carbon dioxide 22, BUN 14, creatinine 0.8, glucose 129. 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 Head CT was negative for acute process. Patient was admitted to the hospitalist service and underwent further workup. Carotid Dopplers revealed no significant stenosis in either carotids. Patient had no further signs and symptoms of syncope. He underwent a lung biopsy 04/24/19. Cytology came back poorly differentiated favor small cell but pathology came back poorly differentiated adenocarcinoma and is going to be sent for additional testing. The patient did obtain a small pneumothorax during this procedure extended his stay here at the hospital. He recovered well fro
== END 2019-04-26 20:25 | disposition home or self-care (01) | DRG 181 ==
LOC: ANHED 04-21 01:30 → ANH3MEDSUR 04-21 01:34
PROVIDERS: Internal Medicine Critical Care Medicine; Physician Assistant; Admitting Provider Family Medicine; Emergency Provider Emergency Medicine; Visit Provider Internal Medicine
PROC: 0BJ08ZZ Inspection of Tracheobronchial Tree, Via Natural or Artificial Opening Endoscopic (ICD-10-PCS; CPT 31622; principal; 2019-04-21 13:00)
DX: C34.11 Malignant neoplasm of upper lobe, right bronchus or lung (principal); J95.811 Postprocedural pneumothorax; R55 Syncope and collapse; I10 Essential (primary) hypertension; R00.0 Tachycardia, unspecified; M19.90 Unspecified osteoarthritis, unspecified site; Z98.1 Arthrodesis status; Z28.21 Immunization not carried out because of patient refusal
CPT/HCPCS: 32405; 32550; 36415; 70450; 71045; 71046; 71275; 75989; 77012; 80048; 80053; 83735; 84100; 84443; 84484; 85014; 85018; 85025; 85027; 85610; 85730; 88104; 88108; 88184; 88305; 88342; 93005; 93306; 93880; 94640; 96361; 96374; 96375; 97161; 97165; 99285; A9270; C1769; C9113; G0378; J1956; J2060; J2270; J2405; J2704; J3010; J7030; J7120; Q9967

== ENCOUNTER 2019-05-08 09:28 | Outpatient (CLI) | payer MEDICARE, SELFPAY ==
[2019-05-08 09:44] LABS: Basophils Percent Auto 0.4 % (0.2-1.2); Eosinophils Percent Auto 0.1 % (0-4.4); Immature Granulocyte Absolute 0.02 K/mm3 (0.00-0.031); Immature Granulocyte Percent A 0.2 % (0-0.5); Lymphocytes Absolute Auto 2.41 K/mm3 (0.9-3.2); Lymphocytes Percent Auto 25.9 % (18.3-44.2); Mean Corpuscular HGB Conc 32.4 g/dl (32-36); Mean Corpuscular Hemoglobin 26.8 pg (26-34); Mean Corpuscular Volume 82.7 fl (80-100); Mean Platelet Volume 7.9 fl (7.4-10.4); Monocytes Absolute Auto 0.8 K/mm3 (0.1-0.6); Monocytes Percent Auto 8.2 % (2.6-8.5); Neutrophils Absolute Auto 6.1 K/mm3 (1.3-6.7); Neutrophils Percent Auto 65.2 % (45.5-73.1); Platelet Count Result 465 k/mm3 (150-375); Red Blood Count 4.11 M/mm3 (4.6-6.20); Red Cell Distribution Width 13.5 % (11.5-14.5); White Blood Count 9.3 K/mm3 (4.5-10.0)
[2019-05-08 13:37] LABS: Iron 18 ug/dL (49-181)
[2019-05-08 13:44] LABS: Alanine Aminotransferase 20 U/L (4-50); Alkaline Phosphatase 70 U/L (38-126); Aspartate Amino Transferase 40 U/L (17-59); Bilirubin,Total 0.3 mg/dL (0.2-1.3); Blood Urea Nitrogen 12 mg/dL (9-20); Calcium 9.7 mg/dL (8.4-10.2); Carbon Dioxide 25 mmol/L (22-30); Chloride 95 mmol/L (98-107); Estimated Glomerular Filt Rate > 60; Glucose 107 mg/dL (75-110); Lactate Dehydrogenase 508 U/L (313-618); Potassium 4.8 mmol/L (3.4-5.0); Sodium 136 mmol/L (137-145)
[2019-05-08 13:47] LABS: Percent Iron Saturation 7 % (20-50)
[2019-05-08 14:54] LABS: Folic Acid > 20.0 ng/mL (2.76->20)
== END 2019-05-08 09:29 | disposition home or self-care (01) ==
PROVIDERS: Visit Provider Internal Medicine Hematology & Oncology
DX: D64.9 Anemia, unspecified (principal)
CPT/HCPCS: 36415; 80053; 82607; 82746; 83540; 83550; 83615; 85025

== ENCOUNTER 2019-05-15 09:40 | Outpatient (CLI) | payer MEDICARE, SELFPAY ==
--- NOTE | ~2019-05-15 | MR_ITS ---
EXAMINATION: MR brain/brain stem wo/w con EXAM DATE: 05/15/2019 11:06 INDICATION: Right upper lobe malignancy, lung cancer. TECHNIQUE: Magnetic resonance imaging (MRI) of the brain/brain stem obtained without contrast. Sagit edilia T1, axial diffusion, gradient echo (T2*), T1, T2, FLAIR sequences obtained. Patient was then inj ected with 10 cc intravenous Multihance contrast. Axial and coronal postcontrast T1 weighted sequence s obtained. There is no prior study for comparison. FINDINGS: There are no areas of restricted diffusion to suggest acute infarction. There is no acute hemorrhage seen on the T2*, a hemosiderin sensitive sequence. No intraparenchymal brain mass lesion. There is mild periventricular and subcortical T2/FLAIR signal hyperintensity, nonspecific but probab ly related to small vessel ischemic disease (microangiopathy). There is mild prominence of the sulc i and ventricles related to cerebral atrophy. There are no extra-axial collections. Flow voids are seen in the cerebral arteries on the T2-weighted sequences consistent with their expected patency. The orbits are unremarkable. Soft tissue is unremarkable. There are no areas of abnormal enhancemen t on the postcontrast images. Artifact from cervical fusion hardware. IMPRESSION: 1. No evidence of intracranial metastatic disease. 2. Chronic age related findings. Reviewed, dictated and finalized at location B. ETIC TESTER
--- NOTE | ~2019-05-15 | PE_ITS ---
EXAMINATION: PET skull to mid thigh DATE: 05/15/2019 13:34 INDICATION: Malignant neoplasm of the upper lobe of the right lung TECHNIQUE: Blood glucose level was 99 mg/dL. 6.29 mCi of 18-fluorodeoxyglucose (18-FDG) was administe red i.v. Low dose computed tomography (CT) images were acquired from the base of the brain to the pro ximal thighs for attenuation correction and anatomic localization. Positron emission tomography (PET) images were acquired in the same distribution beginning 63 minutes after injection. COMPARISON: 04/20/2019 FINDINGS: Head/neck: Areas of FDG uptake in the oral cavity, vocal cords, and neck muscles without suspicious C T correlate are likely physiologic. There is also FDG uptake in the neck fat, a normal variant. Chest: There is a 5.8 x 4.9 cm mass of the right upper lobe with abnormal FDG uptake and SUV max of 1 1.4. An approximately 2.8 x 2.4 cm right hilar lymph node demonstrates abnormal FDG uptake with an LEE V max of 9.8. A 3.2 x 2.2 cm FDG avid right lower paratracheal lymph node demonstrates an SUV max of 10.1. There are soft tissue densities in the upper mediastinum with apparent adjacent surgical clips which measure up to 1.8 cm and demonstrated abnormal FDG uptake with an SUV max of 5.7. There is akilah re emphysema in the upper lobes. No pleural effusion or pneumothorax is identified. The heart size is normal. Abdomen/pelvis/proximal thighs: Physiologic FDG activity is present in the bowel and urinary tract. N o abnormal FDG uptake is identified. A surgical anastomosis is noted in the right lower quadrant. The liver, spleen, pancreas, gallbladder, and adrenal glands are normal. The kidneys are unremarkable. T here is no free intraperitoneal gas or evidence of bowel obstruction. No pathologically enlarged abdo nic or pelvic lymph nodes are identified. Musculoskeletal: No abnormal FDG uptake is identified. There are surgical changes at C2-3, likely rel ated to prior dens fracture stabilization. IMPRESSION: 1. Right upper lobe mass, consistent with biopsy-proven poorly differentiated adenocarcinoma. 2. Metastatic right hilar and right paratracheal lymphadenopathy and possible upper mediastinal metas tases. Reviewed, dictated and finalized at location A. TENDER PAPER MACHINE IMPRESSION: 1. Right upper lobe mass, consistent with biopsy-proven poorly differentiated a denocarcinoma. 2. Metastatic right hilar and right paratracheal lymphadenopathy and possible u pper mediastinal metastases.
[2019-05-15 11:14] LABS: Glucose Point of Care 99 (65-105)
== END 2019-05-15 09:41 | disposition home or self-care (01) ==
LOC: ANHIMG 09:51
PROVIDERS: Visit Provider Internal Medicine Hematology & Oncology
DX: C34.11 Malignant neoplasm of upper lobe, right bronchus or lung (principal); C77.1 Secondary and unspecified malignant neoplasm of intrathoracic lymph nodes
CPT/HCPCS: 70553; 78815; A9552; A9577

== ENCOUNTER 2019-05-28 00:43 | Day surgery (SDC) | payer MEDICARE, SELFPAY ==
[2019-05-23 13:47] VITALS: BMI 19.1
--- NOTE | ~2019-05-28 | XR_ITS ---
EXAMINATION: XR fl guide central line place INDICATION: Port-A-Cath insertion TECHNIQUE: Two intraoperative fluoroscopic images are submitted for review. Total fluoroscopic time w as 36.8 seconds. COMPARISON: None available FINDINGS: Fluoroscopic images demonstrate a left internal jugular Port-A-Cath ending with its tip in the proximal right atrium. Please refer to procedure note for full details. IMPRESSION: 1. Left internal jugular Port-A-Cath insertion. Please refer to procedure note for full details. Reviewed, dictated and finalized at location A. STANT PRODUCT MANAGER
--- NOTE | ~2019-05-28 | XR_ITS ---
EXAMINATION: XR chest port-a-cath/central DATE: 05/28/2019 15:35 INDICATION: Port catheter insertion TECHNIQUE: frontal view of the chest was obtained. COMPARISON: Chest radiograph dated 04/26/2019 FINDINGS: Interval placement of a left internal jugular central venous port catheter with distal tip near the s uperior cavoatrial junction. Emphysema with increased lucency and architectural distortion at the dahlia ateral upper lung zones. Right upper lobe mass consistent with primary bronchogenic carcinoma. Margin of the right hilum consistent with associated metastatic lymphadenopathy. Mild primarily streaky opa cities in the lower lung zones, left greater than right and favor atelectasis over pneumonia or pulmo nary edema. No pleural effusion or pneumothorax. Heart size is normal. IMPRESSION: 1. No pleural effusion or pneumothorax post left internal jugular central venous port catheter placem ent with tip near the superior cavoatrial junction. 2. Right upper lobe mass and right hilar enlargement consistent with primary bronchogenic carcinoma a nd right hilar metastatic lymphadenopathy. 3. Emphysema. 4. Mild opacities in the bilateral lower lung zones and favor atelectasis over pulmonary edema or pne umonia. Reviewed, dictated and finalized at location A. RIAL REQUISITIONER IMPRESSION: 1. No pleural effusion or pneumothorax post left internal jugular central venou s port catheter placement with tip near the superior cavoatrial junction. 2. Right upper lobe mass and right hilar enlargement consistent with primary br onchogenic carcinoma and right hilar metastatic lymphadenopathy. 3. Emphysema. 4. Mild opacities in the bilateral lower lung zones and favor atelectasis over pulmonary edema or pneumonia.
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
[2019-05-28] MEDS: LACTATED RINGERS 1,000 ML 30 ML IV CONT (12:10)
[2019-05-28] MEDS: IBUPROFEN IV 800 MG/200 ML 800 MG/200 ML BAG 400 MG IVPB (12:28)
[2019-05-28 12:32] VITALS: BP 124/82; PULSE 99; RESP 16; TEMP 37.9; O2SAT 99
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
[2019-05-28] MEDS: ceFAZolin 2 GM/D5W 50 ML 2 GM/50 ML BAG IVPB (14:36)
[2019-05-28] MEDS: HEPARIN SODIUM, PORCINE 10,000 UNITS/10 ML VIAL 3000 UNITS IV PUSH (15:02)
[2019-05-28] MEDS: LIDO 1%/EPINEPHRINE 1:100,000 20 ML VIAL 10 ML INFILTRATE (15:03)
[2019-05-28] MEDS: HEPARIN SODIUM 5,000 UNITS/ML VIAL 5000 UNITS IRRIGATION (15:03)
[2019-05-28 15:24] VITALS: BP 127/73; PULSE 105; RESP 18; O2SAT 98
--- NOTE | 2019-05-28 15:31 | PM.PROC ---
Procedure Note - Detailed Date of procedure: 05/28/19 Pre-op diagnosis: Right Lung Ca Post-op diagnosis: same Procedure performed: Left internal jugular Port-A-Cath placement using ultrasound and fluoroscopic guidance Description of procedure: Procedure as well as risks, benefits, and alternatives were discussed with patient. Written consent was obtained and placed in chart prior to procedure. Patient was brought back to surgical suite. Was placed supine on operating table. Time-out was done confirm patient procedure. IV sedation was then administered by the Anesthesia Department. The chest and neck area was prepped and draped in sterile fashion using chlorhexidine prep. Patient was placed in Trendelenburg position. SonoSite ultrasound was used to identify the left internal jugular vein. It was visualized as a compressible vessel just lateral to the carotid artery. 1% lidocaine with epinephrine was infiltrated directly over the vessel under ultrasound guidance. An 18 gauge introducer needle was then advanced under ultrasound guidance directly into the left internal jugular vein. Dark nonpulsatile blood was aspirated. A 0.035 in guidewire was then advanced through the needle under fluoroscopic guidance. The guidewire was visualized advancing all the way down into the superior vena cava. 1% lidocaine with epinephrine was then infiltrated on the left anterior chest and along the tract up to the guidewire insertion site. A 3 cm incision was made with a 15 blade scalpel, and electrocautery was then used for dissection down through the subcutaneous tissue to the pectoral fascia. A pocket was created just inferior to the incision using blunt dissection. A small [place] incision was then also made at the insertion site at the neck. The tunneler was then advanced from the chest incision up to the neck incision and the catheter tubing was brought up through this tract. The dilator and sheath were then advanced over the guidewire under fluoroscopic visualization. The dilator and guidewire were then removed leaving the sheath in place. The catheter tubing was then advanced through the sheath under fluoroscopic guidance. The sheath was unsnapped and carefully peeled away. The catheter tubing was released underneath the neck incision. Fluoroscopy was used to confirm proper placement of the catheter tubing and no kinks along its path. The catheter was then cut to proper length and secured to the port. The port was then accessed with a Orozco needle and aspirated and flushed with heparinized saline. The port function with ease. The port was then hep-locked with Hep-Lock solution. The port was then placed within the pocket that was created, and was secured to the fascia using 3 0 Prolene simple interrupted sutures. The patient was flattened out in bed. Mara's fascia was reapproximated using 3 0 Vicryl simple interrupted sutures. The skin of the incisions was then approximated using 4-0 Monocryl subcuticular suture. Exofin glue was then applied on top. The patient was then awakened from anesthesia and transferred to recovery. Implants: Bard low-profile power port Anesthesia: MAC and local (1% lidocaine with epinephrine) Surgeon: Isaías Lu DO Estimated blood loss (mL): 5 Complications: No immediate complications Condition: stable Disposition: same day Findings: This is a 63-year-old man who presented with a recent finding of right lung cancer. He had previously undergone CT-guided right upper lobe biopsy and subsequently developed a pneumothorax that was treated with a chest tube placement. He has recovered from this and has now seen Oncology. Chemotherapy is recommended by Oncology, and patient is in need of port placement to initiate chemo. Ultrasound guidance was used to identify the left internal jugular vein. This was visualized as a compressible vessel just lateral to the carotid artery. The vein was accessed with an 18 gauge introducer needle u
--- NOTE | 2019-05-28 15:43 | SUR.PHASEII ---
1530 PORTABLE CHEST XRAY TAKEN.
[2019-05-28 15:50] VITALS: BP 129/73; PULSE 98; RESP 18; O2SAT 96
[2019-05-28 16:05] VITALS: BP 127/82; PULSE 93; RESP 18
== END 2019-05-28 16:13 | disposition home or self-care (01) ==
PROVIDERS: Visit Provider Surgery
PROC: (CPT 36561; principal; 2019-05-28 13:30)
DX: C34.91 Malignant neoplasm of unspecified part of right bronchus or lung (principal); I10 Essential (primary) hypertension; D64.9 Anemia, unspecified; F32.9 Major depressive disorder, single episode, unspecified; M19.90 Unspecified osteoarthritis, unspecified site; Z98.1 Arthrodesis status; F12.90 Cannabis use, unspecified, uncomplicated
CPT/HCPCS: 36561; 77001; C1788; J0690; J1644; J1741; J2250; J2704; J3010; J7030; J7120

== ENCOUNTER 2019-09-17 08:20 | Outpatient (CLI) | payer MEDICARE, SELFPAY ==
--- NOTE | ~2019-09-17 | CT_ITS ---
EXAMINATION: CT chest w con DATE: 09/17/2019 09:15 INDICATION: Malignant neoplasm of the right upper lobe TECHNIQUE: Transaxial computed tomographic images of the chest were obtained after the administration of 75 cc of Omnipaque 350 intravenous contrast. The dose-length product (DLP) was 135.22 mGy-cm. Ite rative reconstruction was used. COMPARISON: 05/15/2019 FINDINGS: A 5.3 x 2.6 cm mass of the right upper lobe previously measured 5.8 x 4.9 cm. There is akilah re emphysema. No pleural effusion or pneumothorax is identified. A left internal jugular Port-A-Cath ends with its tip in the proximal right atrium. Right hilar and right lower paratracheal lymphadenopa thy has resolved. There is also interval decrease in size of previously described soft tissue densiti es in the upper mediastinum which demonstrated abnormal FDG uptake. There is mild thoracic spondylosi s. IMPRESSION: 1. Interval response to therapy as evidenced by decrease in size of the previously described right up per lobe mass, resolution of right hilar and right paratracheal lymphadenopathy, and decrease in size of soft tissue densities of the upper mediastinum. 2. Severe emphysema. Reviewed, dictated and finalized at location A. IMPRESSION: 1. Interval response to therapy as evidenced by decrease in size of the previou sly described right upper lobe mass, resolution of right hilar and right paratr acheal lymphadenopathy, and decrease in size of soft tissue densities of the up per mediastinum. 2. Severe emphysema.
[2019-09-17 09:03] LABS: Estimated Glomerular Filt Rate > 60
== END 2019-09-17 08:21 | disposition home or self-care (01) ==
PROVIDERS: Visit Provider Internal Medicine Hematology & Oncology
DX: C34.11 Malignant neoplasm of upper lobe, right bronchus or lung (principal); J43.9 Emphysema, unspecified
CPT/HCPCS: 36415; 71260; Q9967

== ENCOUNTER 2019-12-31 08:39 | Outpatient (CLI) | payer MEDICARE, SELFPAY ==
--- NOTE | ~2019-12-31 | CT_ITS ---
EXAMINATION:CT chest w con DATE: 12/31/2019 09:33 INDICATION: Malignant neoplasm of the upper lobe of right lung. TECHNIQUE: Computed tomography (CT) of the chest was performed with 75 mL Omnipaque 350 intravenous c ontrast. Automated exposure control and iterative reconstruction technique were employed. The dose-le ngth product (DLP) was 133.73 mGy-cm. COMPARISON: Chest CT 09/17/2019, PET/CT 05/15/2019 FINDINGS: There is moderate emphysema. There is a 4.3 x 1.8 cm mass in right lung upper lobe, decreas ed from 4.7 x 2.5 cm. There are airspace opacities in right upper lobe and superior segment right low er lobe with volume loss and air bronchograms, consistent with radiation pneumonitis. Calcified pulmo nary nodules and calcified hilar and mediastinal lymph nodes are consistent with old granulomatous di sease. No pleural effusion. There is a small sliding hiatal hernia. There is a 1.3 cm cyst in left ki dney. There is right hilar and mediastinal lymphadenopathy. For example, a 2.1 x 2.0 cm node in the s uperior mediastinum previously measured 1.8 x 1.5 cm. There is a left internal jugular port with tip in right atrium. There is mild thoracic spondylosis. IMPRESSION: 1. Improved mass in right lung upper lobe, consistent with primary bronchogenic carcinoma. 2. Worsened right hilar and mediastinal lymphadenopathy, consistent with metastatic disease. Reviewed, dictated and finalized at location A. IMPRESSION: 1. Improved mass in right lung upper lobe, consistent with primary bronchogenic carcinoma. 2. Worsened right hilar and mediastinal lymphadenopathy, consistent with metast atic disease.
== END 2019-12-31 08:40 | disposition home or self-care (01) ==
PROVIDERS: PCP Family Medicine; Visit Provider Internal Medicine Hematology & Oncology
DX: C34.11 Malignant neoplasm of upper lobe, right bronchus or lung (principal)
CPT/HCPCS: 71260; Q9967

== ENCOUNTER 2020-02-29 14:07 | Emergency (ER) | payer MEDICARE, SELFPAY ==
--- NOTE | ~2020-02-29 | XR_ITS ---
EXAMINATION: XR chest 2V DATE: 02/29/2020 14:42 INDICATION: Chest pain. TECHNIQUE: Frontal and lateral views of the chest were obtained. COMPARISON: Chest single view 05/28/2019, chest CT 12/31/2019 FINDINGS: There are lucencies in the lungs, consistent with emphysema. There are airspace opacities i n right upper lobe. There are mild airspace opacities in left mid and lower lung zones. Calcified lef t hilar and mediastinal lymph nodes are consistent with old granulomatous disease. No pleural effusio n or pneumothorax. The heart size is normal. There is a left internal jugular port with tip at superi or cavoatrial junction. There is mild chronic anterior wedging of multiple midthoracic vertebral bodi es. IMPRESSION: 1. Improved airspace opacities in right lung upper lobe, consistent with treated malignancy and radia tion fibrosis. 2. Mild airspace opacities in left mid and lower lung zones, consistent with atelectasis versus pneum onia. 3. Emphysema. Reviewed, dictated and finalized at location A. D REP IMPRESSION: 1. Improved airspace opacities in right lung upper lobe, consistent with treate d malignancy and radiation fibrosis. 2. Mild airspace opacities in left mid and lower lung zones, consistent with at electasis versus pneumonia. 3. Emphysema.
[2020-02-29 14:11] VITALS: BP 131/83; PULSE 91; RESP 24; TEMP 36.7; O2SAT 100
--- NOTE | 2020-02-29 14:20 | ECG_ITS ---
Measurements Intervals [place] Rate: 88 P: 67 [place]: 165 QRS: -49 QRSD: 87 T: 73 QT: 330 QTc: 401 Interpretive Statements SINUS RHYTHM LEFT ANTERIOR FASCICULAR BLOCK BASELINE WANDER- I, II, AVR, V2, V4-V6 ABNORMAL ECG Electronically Signed On 02-29-2020 15:48:11 FOREST AIDE by Vance Molina D.O.
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
[2020-02-29 14:31] LABS: Basophils Percent Auto 0.7 % (0.2-1.2); Eosinophils Absolute Auto 0.2 K/mm3 (0-0.3); Eosinophils Percent Auto 3.4 % (0-4.4); Hematocrit 41.8 % (42.0-52.0); Hemoglobin 13.6 g/dL (14.0-18.0); Immature Granulocyte Absolute 0.01 K/mm3 (0.00-0.031); Immature Granulocyte Percent A 0.2 % (0-0.5); Lymphocytes Absolute Auto 2.08 K/mm3 (0.9-3.2); Mean Corpuscular HGB Conc 32.5 g/dl (32-36); Mean Corpuscular Hemoglobin 27.6 pg (26-34); Mean Platelet Volume 8.7 fl (7.4-10.4); Monocytes Absolute Auto 0.5 K/mm3 (0.1-0.6); Monocytes Percent Auto 8.7 % (2.6-8.5); Neutrophils Absolute Auto 3.1 K/mm3 (1.3-6.7); Platelet Count Result 266 k/mm3 (150-375); Red Blood Count 4.92 M/mm3 (4.6-6.20); Red Cell Distribution Width 14.9 % (11.5-14.5)
[2020-02-29 14:41] LABS: Potassium 3.6 mmol/L (3.4-5.0); Prothrombin Time 13.5 Seconds (11.1-14.7)
[2020-02-29 14:42] LABS: Partial Thromboplastin Time 30.4 SECONDS (22.3-36.8)
[2020-02-29 14:43] LABS: Anion Gap 8 mmol/L (8-16); Blood Urea Nitrogen 20 mg/dL (9-20); Calcium 9.6 mg/dL (8.4-10.2); Carbon Dioxide 29 mmol/L (22-30); Chloride 101 mmol/L (98-107); Estimated CRCL calculation 61 ml/min; Estimated Glomerular Filt Rate > 60; Glucose 86 mg/dL (75-110); Sodium 138 mmol/L (137-145)
[2020-02-29] MEDS: HYDROcodone/acetaminophen (*CRX) 5-325 MG TABLET 1 TAB PO (14:45)
[2020-02-29] MEDS: ASPIRIN 81 MG CHEWABLE TABLET 324 MG PO (14:45)
[2020-02-29] MEDS: MAG HYDROX/AL HYDROX/SIMETH 30 ML UDC 10 ML PO (14:50)
[2020-02-29] MEDS: diphenhydrAMINE HCL ELIXIR 12.5 MG/5 ML UDC 25 MG PO (14:50)
[2020-02-29] MEDS: LIDOCAINE HCL 2% VISC SOLN 15 ML UDC 10 ML PO (14:50)
[2020-02-29 14:54] LABS: Troponin I 0.024 ng/mL (0.000-0.034)
[2020-02-29 16:28] VITALS: BP 124/87; PULSE 80; RESP 18; O2SAT 99
== END 2020-02-29 16:37 | disposition home or self-care (01) ==
PROVIDERS: Emergency Provider Emergency Medicine; PCP Family Medicine
DX: R07.81 Pleurodynia (principal); C34.91 Malignant neoplasm of unspecified part of right bronchus or lung; D64.9 Anemia, unspecified; I44.4 Left anterior fascicular block; M19.90 Unspecified osteoarthritis, unspecified site; I10 Essential (primary) hypertension; F32.9 Major depressive disorder, single episode, unspecified
CPT/HCPCS: 36415; 71046; 80048; 84484; 85025; 85610; 85730; 93005; 99284; A9270

== ENCOUNTER 2020-03-10 10:20 | Outpatient (CLI) | payer MEDICARE, SELFPAY ==
--- NOTE | ~2020-03-10 | CT_ITS ---
EXAMINATION: CT chest w con DATE: 03/10/2020 10:53 INDICATION: Malignant neoplasm of the upper lobe of the right lung TECHNIQUE: Transaxial computed tomographic images of the chest were obtained after the administration of 75 cc of Omnipaque 350 intravenous contrast. The dose-length product (DLP) was 144.45 mGy-cm. Ite rative reconstruction was used. COMPARISON: 12/31/2019 FINDINGS: There is a 4.3 x 1.6 cm right upper lobe mass which is not significantly changed. Moderate emphysema is noted. No new mass is identified. There is no pleural effusion or pneumothorax. Unchange d airspace opacities and air bronchograms are seen in the right upper lobe and superior segment of th e right lower lobe, consistent with radiation pneumonitis. Right hilar and mediastinal lymphadenopath y persists. There is slight enlargement of the superior mediastinal lymph node which measures 2.6 x 2 .2 cm, previously 2.1 x 2.0 cm. A left internal jugular Port-A-Cath ends with its tip in the right at rium. There is mild thoracic spondylosis. A 12 mm cyst is noted in the right kidney. IMPRESSION: 1. Stable right upper lobe mass, consistent with primary bronchogenic carcinoma. 2. Worsened mediastinal lymphadenopathy and stable right hilar lymphadenopathy, consistent with metas tatic disease. Reviewed, dictated and finalized at location A. E SUBSTANCE ABUSE IMPRESSION: 1. Stable right upper lobe mass, consistent with primary bronchogenic carcinoma . 2. Worsened mediastinal lymphadenopathy and stable right hilar lymphadenopathy, consistent with metastatic disease.
== END 2020-03-10 10:21 | disposition home or self-care (01) ==
PROVIDERS: PCP Family Medicine; Visit Provider Internal Medicine Hematology & Oncology
DX: C34.11 Malignant neoplasm of upper lobe, right bronchus or lung (principal); R91.8 Other nonspecific abnormal finding of lung field
CPT/HCPCS: 71260; Q9967

== ENCOUNTER 2020-03-13 07:03 | Observation (INO) | payer MEDICARE, SELFPAY ==
[2020-03-13] VITALS (14 sets, daily range): BP systolic 93–136; BP diastolic 66–88; PULSE 78–102; RESP 12–31; TEMP 36.4–37.2; O2SAT 92–100; BMI 20.7
--- NOTE | ~2020-03-13 | US_ITS ---
EXAMINATION: US carotid duplex BI DATE: 03/14/2020 08:51 INDICATION: Syncope. Cerebral atherosclerosis. TECHNIQUE: Grayscale, color Doppler, and pulsed Doppler images of the cervical carotid arteries were obtained. The degree of vessel stenosis is placed in one of the following categories: normal, <50%, 5 0-69%, >=70% but less than near-occlusion, near-occlusion, or total occlusion. Note that percent sten osis relative to normal distal artery lumen diameter is indirectly measured from velocity measurement s as described by Matt, et al. Radiology 2003; 229:[id number]. COMPARISON: None. FINDINGS: RIGHT: The right common carotid artery (CCA) peak systolic velocity (PSV) is 96 cm/s. The right internal car otid artery (ICA) PSV is 110 cm/s. The right ICA end-diastolic velocity (EDV) is 2. cm/s. The right I CA/CCA PSV ratio is 1.1. Grayscale and color Doppler images yield an estimate of <50% diameter reduct ion from negligible plaque in the ICA. The external carotid artery (ECA) PSV is 52 cm/s. There is ant egrade flow in the right vertebral artery. LEFT: The left CCA PSV is 146 cm/s. The left ICA PSV is 104 cm/s. The left ICA EDV is 37 cm/s. The left ICA /CCA PSV ratio is 0.7. Grayscale and color Doppler images yield an estimate of <50% diameter reductio n from negligible plaque in the ICA. The ECA PSV is 118 cm/s. There is antegrade flow in the left ayden tebral artery. IMPRESSION: 1. <50% stenosis with negligible plaque in the right internal carotid artery. 2. <50% stenosis with negligible plaque in the left internal carotid artery. Reviewed, dictated and finalized at location A. RANCE INVESTIGATOR
--- NOTE | ~2020-03-13 | XR_ITS ---
XR chest 1V portable 03/15/2020 08:39 Indication: Chest pain Procedure: AP portable chest Comparison: Comparison to multiple prior studies sequentially, with oldest reviewed study dated 04/26. Findings: Portacatheter tip in the caudal aspect of the SVC. Heart size normal. There are linear infi ltrates of the right upper and left midlung zone. No pleural effusion or pneumothorax. No acute osseo us abnormality. Impression: 1: Linear infiltrates of the right upper and left midlung zone which may represent atelectasis and/or radiation fibrosis. Pneumonia less favored. Reviewed, dictated and finalized at location A. ACT LENS MOLDER Impression: 1: Linear infiltrates of the right upper and left midlung zone which may repres ent atelectasis and/or radiation fibrosis. Pneumonia less favored.
--- NOTE | ~2020-03-13 | CT_ITS ---
EXAMINATION: CTA chest DATE: 03/15/2020 09:01 INDICATION: Chest pain TECHNIQUE: Computed tomographic angiography (CTA) of the chest was performed without and with 100 mL Omnipaque-350 intravenous contrast. Volume-rendered 3D-reconstructions of the aorta and large arterie s were constructed by the technologist on a separate workstation. Automated exposure control and iter ative reconstruction technique were employed. The dose-length product was 215 mGy-cm. COMPARISON: 03/10/2020 FINDINGS: Left internal jugular central venous port catheter with distal tip at the high right atrium. Moderate emphysema with upper lobe predominance again seen is a now 4.3 x 1.5 cm right upper lobe mass which is slightly decreased in size since 12/31/2019 at which time it measured 4.7 x 2.5 cm. No interval nidhi nge in airspace opacities in the superior segment of the right upper lobe with associated volume loss and bronchiectatic change along with additional bronchiectatic changes in the right upper lobe exten ding towards the previously noted mass likely reflect changes of radiation pneumonitis. Mild discoid atelectasis at the basilar segments of the bilateral lower lobes. Scattered bilateral calcified pulmo nary nodules along with calcified bilateral hilar and mediastinal lymph nodes consistent with old gra nulomatous disease. No pneumonia, pulmonary edema, pleural effusion or pneumothorax. No pulmonary emb olism. Heart size is normal. No pericardial effusion. Thoracic aorta is normal in caliber with no dis section. A few of the calcified mediastinal lymph nodes are engulfed by a 3.2 x 2.6 cm likely metasta tic superior mediastinal mass. Additional smaller deposits less well-defined soft tissue density in t he mediastinum posterosuperior to the right hilum and at the AP window consistent with metastatic dis ease. Small sliding-type hiatal hernia. Bilateral renal cysts measuring 9 mm on the right and 1.2 cm and the left kidney. Mild thoracic spondylosis. Chronic mild anterior wedging at T7. IMPRESSION: 1. Normal thoracic aorta with no aneurysm or dissection. 2. Chronic likely radiation pneumonitis in the right upper lobe and superior segment of the right low er lobe surrounding a decreasing 4.3 x 1.5 cm right upper lobe mass consistent with treated lung canc er. 3. Enlarging 3.2 x 2.6 cm superior mediastinal mass as well as increased soft tissue density mediasti num along the right hilum and AP window consistent with progressing metastatic disease. Reviewed, dictated and finalized at location B. SERVICE DELIVERY MANAGER IMPRESSION: 1. Normal thoracic aorta with no aneurysm or dissection. 2. Chronic likely radiation pneumonitis in the right upper lobe and superior se gment of the right lower lobe surrounding a decreasing 4.3 x 1.5 cm right upper lobe mass consistent with treated lung cancer. 3. Enlarging 3.2 x 2.6 cm superior mediastinal mass as well as increased soft t issue density mediastinum along the right hilum and AP window consistent with p rogressing metastatic disease.
--- NOTE | ~2020-03-13 | CT_ITS ---
EXAMINATION: CT brain wo con DATE: 03/13/2020 08:34 INDICATION: Lung cancer presenting with syncope and possible head injury. TECHNIQUE: Computed tomography (CT) of the head was performed without intravenous contrast. Sagittal and coronal reconstructions were performed. The mA was adjusted according to patient size. Iterative reconstruction technique was employed. The dose-length product was 605.33 mGy-cm. COMPARISON: head CT dated 04/21/2019 and brain MRI dated 05/15/2019 FINDINGS: No fracture. No acute intracranial hemorrhage, acute infarction or mass/mass effect. There is symmetr ic prominence of the sulci and subarachnoid spaces overlying the convexities consistent with mild age -appropriate diffuse cerebral volume loss. Periventricular and subcortical white matter hypoattenuati on consistent with chronic small vessel ischemic disease. The orbits, paranasal sinuses and mastoid a ir cells are normal. Intracranial calcified cerebral atherosclerosis is noted. IMPRESSION: 1. No fracture or acute intracranial process. 2. Age-related changes including mild diffuse volume loss and mild scattered white matter hypoattenua tion consistent with chronic small vessel ischemic disease. Reviewed, dictated and finalized at location A. SERVICES MANAGER IMPRESSION: 1. No fracture or acute intracranial process. 2. Age-related changes including mild diffuse volume loss and mild scattered wh ite matter hypoattenuation consistent with chronic small vessel ischemic diseas e.
--- NOTE | 2020-03-13 07:36 | ECG_ITS ---
Measurements Intervals [place] Rate: 83 P: 71 [place]: 175 QRS: -37 QRSD: 77 T: 37 QT: 375 QTc: 443 Interpretive Statements SINUS RHYTHM LEFT AXIS DEVIATION EARLY PRECORDIAL R/S TRANSITION NONSPECIFIC ST ELEVATION- ANTERIOR LEADS BASELINE ARTIFACT- II, III, AVR, AVL, AVF, V1-V3 BORDERLINE ECG Electronically Signed On 03-13-2020 7:58:17 JUNIOR STAFF ACCOUNTANT by Vance Molina D.O.
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
[2020-03-13] MEDS: LACTATED RINGERS 1,000 ML 150 ML IV CONT (08:18)
[2020-03-13 08:27] LABS: Basophils Percent Auto 0.2 % (0.2-1.2); Eosinophils Absolute Auto 0.1 K/mm3 (0-0.3); Eosinophils Percent Auto 1.1 % (0-4.4); Hematocrit 39.3 % (42.0-52.0); Hemoglobin 12.9 g/dL (14.0-18.0); Immature Granulocyte Absolute 0.04 K/mm3 (0.00-0.031); Immature Granulocyte Percent A 0.4 % (0-0.5); Immature Platelet Fraction Pct 2.9 % (0.9-11.2); Lymphocytes Absolute Auto 1.09 K/mm3 (0.9-3.2); Lymphocytes Percent Auto 10.9 % (18.3-44.2); Mean Corpuscular HGB Conc 32.8 g/dl (32-36); Mean Corpuscular Hemoglobin 27.5 pg (26-34); Mean Corpuscular Volume 83.8 fl (80-100); Mean Platelet Volume 9.3 fl (7.4-10.4); Monocytes Absolute Auto 0.8 K/mm3 (0.1-0.6); Monocytes Percent Auto 7.8 % (2.6-8.5); Neutrophils Percent Auto 79.6 % (45.5-73.1); Platelet Count Result 255 k/mm3 (150-375); Red Blood Count 4.69 M/mm3 (4.6-6.20); Red Cell Distribution Width 14.7 % (11.5-14.5)
[2020-03-13 08:37] LABS: Anion Gap 10 mmol/L (8-16); Blood Urea Nitrogen 21 mg/dL (9-20); Calcium 9.1 mg/dL (8.4-10.2); Carbon Dioxide 23 mmol/L (22-30); Chloride 103 mmol/L (98-107); Estimated CRCL calculation 65 ml/min; Estimated Glomerular Filt Rate > 60; Glucose 155 mg/dL (75-110); Potassium 3.5 mmol/L (3.4-5.0); Sodium 136 mmol/L (137-145)
[2020-03-13 08:45] LABS: Large Platelets Present; Platelet Estimate Adequate (Adequate)
[2020-03-13 08:49] LABS: Troponin I 0.024 ng/mL (0.000-0.034)
[2020-03-13] MEDS: ONDANSETRON INJ 4 MG/2 ML VIAL IV PUSH (09:04)
--- NOTE | 2020-03-13 13:57 | ADMGEN ---
This patient, Shubham Sutton, was admitted to Medical Room 251-01. Patient/family oriented to hospital policies and general routines including ID bracelet, bed and alarms, visiting hours, pain management, procedures, bathroom and other care routines, personal items, smoking policy, room service/diet, and visiting hours. Information on how to activate the Rapid Response Team has been discussed. Patient/Family are encouraged to report perceived risks to care and to ask questions if they do not understand what they are told or what they should do.
[2020-03-13] MEDS: LACTATED RINGERS 1,000 ML 125 ML IV CONT ×2 (14:38→21:39)
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
[2020-03-13] MEDS: CALCIUM CARBONATE (TUMS) 500 MG (200 MG ELEMENTAL) PO (18:06)
[2020-03-13] MEDS: ACETAMINOPHEN 325 MG TABLET 650 MG PO (19:28)
[2020-03-14] VITALS (12 sets, daily range): BP systolic 120–140; BP diastolic 79–89; PULSE 78–87; RESP 16–18; TEMP 36.8–37.1; O2SAT 98–100
[2020-03-14] MEDS: ACETAMINOPHEN 325 MG TABLET 650 MG PO ×5 (01:29→21:25)
[2020-03-14 06:32] LABS: Basophils Percent Auto 0.5 % (0.2-1.2); Eosinophils Absolute Auto 0.1 K/mm3 (0-0.3); Eosinophils Percent Auto 1.4 % (0-4.4); Hematocrit 34.1 % (42.0-52.0); Hemoglobin 11.3 g/dL (14.0-18.0); Immature Granulocyte Absolute 0.02 K/mm3 (0.00-0.031); Immature Granulocyte Percent A 0.3 % (0-0.5); Lymphocytes Absolute Auto 2.23 K/mm3 (0.9-3.2); Lymphocytes Percent Auto 33.7 % (18.3-44.2); Mean Corpuscular HGB Conc 33.1 g/dl (32-36); Mean Corpuscular Volume 84.4 fl (80-100); Mean Platelet Volume 8.7 fl (7.4-10.4); Monocytes Absolute Auto 0.7 K/mm3 (0.1-0.6); Monocytes Percent Auto 10.3 % (2.6-8.5); Neutrophils Absolute Auto 3.6 K/mm3 (1.3-6.7); Neutrophils Percent Auto 53.8 % (45.5-73.1); Platelet Count Result 242 k/mm3 (150-375); Red Blood Count 4.04 M/mm3 (4.6-6.20); Red Cell Distribution Width 14.8 % (11.5-14.5); White Blood Count 6.6 K/mm3 (4.5-10.0)
[2020-03-14 06:56] LABS: Anion Gap 2 mmol/L (8-16); Blood Urea Nitrogen 17 mg/dL (9-20); Calcium 8.8 mg/dL (8.4-10.2); Carbon Dioxide 30 mmol/L (22-30); Chloride 106 mmol/L (98-107); Estimated CRCL calculation 52 ml/min; Estimated Glomerular Filt Rate > 60; Glucose 88 mg/dL (75-110); Potassium 4.1 mmol/L (3.4-5.0); Sodium 138 mmol/L (137-145)
[2020-03-14] MEDS: ENOXAPARIN 40 MG/0.4 ML SYRINGE SUB-Q (09:53)
[2020-03-15] VITALS (11 sets, daily range): BP systolic 112–142; BP diastolic 80–87; PULSE 69–106; RESP 18–20; TEMP 36.1–36.7; O2SAT 95–100; BMI 20.7
[2020-03-15] MEDS: ACETAMINOPHEN 325 MG TABLET 650 MG PO ×2 (03:06→08:08)
--- NOTE | 2020-03-15 08:20 | ECG_ITS ---
Measurements Intervals [place] Rate: 78 P: 67 AK: 169 QRS: -43 QRSD: 72 T: 51 QT: 355 QTc: 406 Interpretive Statements SINUS RHYTHM WITH SINUS ARRHYTHMIA LEFT AXIS DEVIATION BORDERLINE T WAVE ABNORMALITY- INFERIOR LEADS BASELINE ARTIFACT- II, III, AVR, AVF, V4-V6 BORDERLINE ECG Electronically Signed On 03-15-2020 8:51:08 [employer] by Vance Molina D.O.
[2020-03-15] MEDS: NITROGLYCERIN SL 0.4 MG TABLET (08:28)
[2020-03-15] MEDS: ASPIRIN 81 MG CHEWABLE TABLET 324 MG PO (08:41)
[2020-03-15] MEDS: ENOXAPARIN 40 MG/0.4 ML SYRINGE SUB-Q (08:42)
[2020-03-15] MEDS: NITROGLYCERIN SL 0.4 MG TABLET SUBLINGUAL (08:53)
[2020-03-15 08:57] LABS: Alanine Aminotransferase 19 U/L (4-50); Alkaline Phosphatase 50 U/L (38-126); Anion Gap 8 mmol/L (8-16); Aspartate Amino Transferase 35 U/L (17-59); Bilirubin,Total 0.4 mg/dL (0.2-1.3); Blood Urea Nitrogen 15 mg/dL (9-20); Carbon Dioxide 23 mmol/L (22-30); Chloride 106 mmol/L (98-107); Estimated CRCL calculation 63 ml/min; Estimated Glomerular Filt Rate > 60; Glucose 122 mg/dL (75-110); Magnesium 2.1 mg/dL (1.6-2.3); Potassium 3.5 mmol/L (3.4-5.0); Sodium 137 mmol/L (137-145)
[2020-03-15 09:13] LABS: Troponin I 0.036 ng/mL (0.000-0.034)
[2020-03-15 10:45] LABS: Glucose Point of Care 96 (65-105)
--- NOTE | 2020-03-15 14:42 | PM.IMPN ---
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 However this morning patient complained of chest pain, patient was given nitro, which did have relieve some of his symptoms, to further evaluate patient had a EKG did not show any acute changes, his 1st tropes was slightly elevated to 0.036 and next after 3 hours was normal 0.030, also to further evaluate patient had CTA of chest there was no pulmonary emboli however patient does have extensive lung cancer, later went back examined patient his CP has resolved and remains clinically stable, patient to continue working with physical therapy and further recommendation to follow. (2) Generalized weakness: Code(s): R53.1 - Weakness Status: Acute Assessment and Plan: Will have a PT OT evaluate the patient, may benefit from acute rehab (3) Anemia: Code(s): D64.9 - Anemia, unspecified Status: Acute Assessment and Plan: Patient is seen by partition setter and further recommendation to follow (4) Non-small cell cancer of right lung: Code(s): C34.91 - Malignant neoplasm of unspecified part of right bronchus or lung Status: Acute Assessment and Plan: Patient is seen by partition setter oncologist and being treated (5) Depression: Code(s): F32.9 - Major depressive disorder, single episode, unspecified Status: Acute Assessment and Plan: Most likely reactive depression due to lung cancer, patient was seen by his primary and was prescribed antidepressant was unable to tolerate, patient patient will follow-up with his primary care Additional Plan The patient has been admitted to the hospitalist service overnight after syncopal episode. I suspect he likely is orthostatic however he was unable to stand due to weakness and dizziness. Micturition syncope also a consideration. Pulmonary embolism considered but less likely by his history. He will be monitor on telemetry overnight to rule out cardiac dysrhythmia. Continue cautious IV fluid rehydration. Monitor orthostatic vital signs Q shift. Will hold hydrochlorothiazide for now. Initiate fall precautions. PT/OT consulted due to weakness. His hemoglobin hematocrit are stable on review of previous labs. He was recently started on antidepressant however stopped taking it as he thought it was causing him dizziness. He may benefit from trying a different antidepressant, at this time he has no harmful thoughts and reports having a good support system. 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 However this morning patient complained of chest pain, patient was given nitro, which did have relieve some of his symptoms, to further evaluate patient had a EKG did not show any acute changes, his 1st tropes was slightly elevated to 0.036 an
[2020-03-15 15:48] LABS: Troponin I 0.028 ng/mL (0.000-0.034)
--- NOTE | 2020-03-15 16:02 | PM.DS ---
DS: Admitting Diagnosis Admitting Diagnosis Admitting Diagnosis: Syncope. 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 However this morning patient complained of chest pain, patient was given nitro, which did have relieve some of his symptoms, to further evaluate patient had a EKG did not show any acute changes, his 1st tropes was slightly elevated to 0.036 and next after 3 hours was normal 0.030, also to further evaluate patient had CTA of chest there was no pulmonary emboli however patient does have extensive lung cancer, later went back examined patient his CP has resolved and remains clinically stable, patient to continue working with physical therapy and further recommendation to follow. (2) Generalized weakness: Code(s): R53.1 - Weakness Status: Acute Assessment and Plan: Will have a PT OT evaluate the patient, may benefit from acute rehab (3) Anemia: Qualifiers: Anemia type: unspecified type Qualified Code(s): D64.9 - Anemia, unspecified Code(s): D64.9 - Anemia, unspecified Status: Chronic Assessment and Plan: Patient is seen by utility manager and further recommendation to follow (4) Non-small cell cancer of right lung: Code(s): C34.91 - Malignant neoplasm of unspecified part of right bronchus or lung Status: Acute Assessment and Plan: Patient is seen by utility manager oncologist and being treated (5) Depression: Code(s): F32.9 - Major depressive disorder, single episode, unspecified Status: Acute Assessment and Plan: Most likely reactive depression due to lung cancer, patient was seen by his primary and was prescribed antidepressant was unable to tolerate, patient patient will follow-up with his primary care DS: Summary Hospital Course Reason for hospitalization: Shubham Sutton is a very pleasant, unfortunate 64-year-old male with stage III non-small cell carcinoma of the lung who presented to the emergency department earlier today via EMS from home for evaluation after syncopal episode. He has had chest discomfort since his diagnosis of lung cancer in April 2019 with increasing pain in the last couple of weeks for which he was given a prescription for a narcotic of which he does not recall the name. Unfortunately he did not tolerate the drug well which caused overwhelming fatigue, dizziness, and confusion. He was also recently started on an antidepressant however stop taking that after a couple of days as it made him feel dizzy. Since that time he really has not been feeling very well with a poor appetite and lightheadedness and dizziness, which he typically notices when changing positions or when blowing his nose. This morning he got up to use the restroom and just as he finished urinating he felt strange and proceeded to have a syncopal episode. His heard him fall and on her arrival to the bathroom he was unresponsive for short period of time and he seemed to be a little confused when coming to however that passed quickly. In the emergency department he was extremely weak, to the point where he could not even stand for orthostatic vital signs and he is being admitted in setting. He denies fever and chills but reports that he was somewhat sweaty when she found him on the floor. No rece
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
--- NOTE | 2020-03-15 21:39 | ECHO_ITS ---
Patient Info Name: Shubham Sutton Age: 64 years : 1955 Gender: Male Ht: 67 in Wt: 132 lbs BSA: 1.68 m2 HR: 75 bpm BP: 124 / 87 mmHg Heart Rhythm: Sinus Rhythm Technical Quality: Good Exam Date: 03/15/2020 9:25 AM Exam Location: [facility] Pulmonary Exam Room: [facility] Patient Status: Inpatient Admit Date: 03/13/2020 Staff Ordering Physician: Gemma Mcleod PA-C Windshield Wiper Repairer: Abigail Elmore RDCS Attending Provider: Kassie García MD Referring Physician: Harsha PRITCHARD; Exam Type: CA echo doppler color flow Study Info Indications - syncopy Complete two-dimensional, color flow and Doppler transthoracic echocardiogram is performed. Summary 1. Complete two-dimensional, color flow and Doppler transthoracic echocardiogram is performed. 2. Left ventricular chamber dimension is normal. 3. Left ventricular systolic function is normal, estimated at 65-70%. 4. There is no increased left ventricular wall thickness. 5. The left ventricular diastolic function is grade I diastolic dysfunction. 6. There is mild tricuspid valve regurgitation. Left Ventricle Left ventricular chamber dimension is normal. Left ventricular systolic function is normal, estimated at 65-70%. There is no increased left ventricular wall thickness. The left ventricular diastolic function is grade I diastolic dysfunction. Right Ventricle Right ventricular chamber dimension is normal. Right ventricular systolic function is normal. Left Atria Left atrial chamber dimension is normal. Right Atria Right atrial chamber dimension is normal. Atrial Septum Intact interatrial septum visualized by color flow imaging. Aortic Valve The aortic valve is trileaflet. There is mild aortic valve sclerosis. There is no aortic valve stenosis. There is trace aortic valve regurgitation. Pulmonic Valve The pulmonic valve is normal. There is no pulmonic valve stenosis. There is trace pulmonic regurgitation. Mitral Valve The mitral valve has normal leaflets. There is no mitral valve stenosis. There is trace mitral valve regurgitation. Tricuspid Valve The tricuspid valve leaflets are normal. There is no significant tricuspid valve stenosis. There is mild tricuspid valve regurgitation. No pulmonary hypertension, estimated pulmonary arterial systolic pressure is 26 mmHg. Pericardium/Pleural The pericardium appears normal. There is no pericardial effusion. Inferior Vena Cava Dilated inferior vena cava with >50% collapse upon inspiration consistent with elevated right atrial pressure, 10 mmHg. Aorta The aortic root size at the sinus of Valsalva is normal. The prox ascending aorta size is normal. Left Ventricular Outflow Tract Name Value Normal LVOT 2D LVOT Diameter 2.0 cm LVOT Doppler LVOT Peak Gradient 5 mmHg LVOT Mean Gradient 3 mmHg LVOT VTI 19 cm LVOT VTI/AV VTI Ratio 0.9 LVOT Stroke Volume 62 ml LVOT CO 15.9 l/m
== END 2020-03-15 18:10 | disposition home or self-care (01) ==
LOC: ANHED 10:46 → ANH2MED 12:09
PROVIDERS: Internal Medicine Hematology & Oncology; Admitting Provider Family Medicine; Emergency Provider Emergency Medicine; PCP Family Medicine; Visit Provider Family Medicine
DX: R55 Syncope and collapse (principal); C34.91 Malignant neoplasm of unspecified part of right bronchus or lung; R53.1 Weakness; J44.9 Chronic obstructive pulmonary disease, unspecified; I10 Essential (primary) hypertension; D64.9 Anemia, unspecified; F32.9 Major depressive disorder, single episode, unspecified; Z92.21 Personal history of antineoplastic chemotherapy; Z98.1 Arthrodesis status
CPT/HCPCS: 36415; 70450; 71045; 71275; 80048; 80053; 83735; 84484; 85025; 85055; 87040; 93005; 93306; 93880; 96361; 96372; 96374; 97161; 97165; 99285; A9270; G0378; J1650; J2405; J7120; Q9967

== ENCOUNTER 2020-03-20 05:44 | Observation (INO) | payer MEDICARE, SELFPAY ==
[2020-03-20] VITALS (9 sets, daily range): BP systolic 118–147; BP diastolic 86–98; PULSE 68–92; RESP 16–22; TEMP 36.4–36.8; O2SAT 98–100; BMI 20.9
--- NOTE | ~2020-03-20 | XR_ITS ---
EXAMINATION: XR chest 1V DATE: 03/20/2020 INDICATION: Central chest pain. TECHNIQUE: A single frontal view of the chest was obtained. COMPARISON: Chest single view 03/15/2020, chest CT 03/20/2020 FINDINGS: There are lucencies in the lungs, consistent with emphysema. There are airspace opacities i n right upper lung zone. There is mild atelectasis in left lower lung zone. Calcified left hilar lymp h nodes are consistent with old granulomatous disease. No pleural effusion or pneumothorax. The heart size is normal. There is mediastinal lymphadenopathy. There is a left internal jugular port with tip in proximal right atrium. IMPRESSION: 1. Stable airspace opacities in right upper lung zone, consistent with radiation pneumonitis. 2. Mild atelectasis in left lower lung zone. 3. Emphysema. 4. Mediastinal lymphadenopathy, consistent metastatic disease. Reviewed, dictated and finalized at location A. Y HOLE TENDER IMPRESSION: 1. Stable airspace opacities in right upper lung zone, consistent with radiatio n pneumonitis. 2. Mild atelectasis in left lower lung zone. 3. Emphysema. 4. Mediastinal lymphadenopathy, consistent metastatic disease.
--- NOTE | ~2020-03-20 | CT_ITS ---
EXAMINATION: CTA chest PE protocol DATE: 03/20/2020 07:05 INDICATION: Chest pain. TECHNIQUE: Computed tomography angiography (CTA) of the chest was performed with 100 mL Omnipaque-350 intravenous contrast timed to evaluate the pulmonary arteries. Coronal maximum intensity projection 3D-reconstructions were created by the technologist. Automated exposure control and iterative reconst ruction technique were employed. The dose-length product was 187.29 mGy-cm. COMPARISON: Chest CT 03/15/2020, 12/31/2019 FINDINGS: There is moderate emphysema. There are airspace opacities and architectural distortion in r ight upper lobe and superior segment right lower lobe, consistent with primary bronchogenic carcinoma and radiation pneumonitis. There is mild atelectasis bilaterally. Calcified bilateral lung nodules a nd calcified left hilar and mediastinal lymph nodes are consistent with old granulomatous disease. No pleural effusion. There is a left internal jugular port with tip in superior vena cava. There is michael nosis of left brachiocephalic vein, and there are enlarged collateral veins. There is mediastinal lym phadenopathy. For example, a kike mass in the left superior mediastinum measures 3.3 x 3.0 cm, incre ased from 2.5 x 2.3 cm on 12/31/2019. The heart size is normal. There are coronary artery calcificatio ns. No pericardial effusion. There is no pulmonary embolus. There is a small sliding hiatal hernia. T here is a 1.4 cm cyst in left kidney. There is mild thoracic spondylosis. IMPRESSION: 1. No pulmonary embolus. 2. Airspace opacities and architectural distortion in right upper lobe and superior segment right low er lobe, consistent with primary bronchogenic carcinoma and radiation pneumonitis. 3. Mediastinal lymphadenopathy with worsening from 12/31/2019, consistent with metastatic disease. 4. Small sliding hiatal hernia. 5. Moderate emphysema. Reviewed, dictated and finalized at location A. ER SETTER IMPRESSION: 1. No pulmonary embolus. 2. Airspace opacities and architectural distortion in right upper lobe and supe rior segment right lower lobe, consistent with primary bronchogenic carcinoma a nd radiation pneumonitis. 3. Mediastinal lymphadenopathy with worsening from 12/31/2019, consistent with m etastatic disease. 4. Small sliding hiatal hernia. 5. Moderate emphysema.
--- NOTE | 2020-03-20 05:49 | ECG_ITS ---
Measurements Intervals [place] Rate: 92 P: 71 NC: 163 QRS: -66 QRSD: 69 T: 67 QT: 350 QTc: 433 Interpretive Statements SINUS RHYTHM RSR' IN V1 OR V2, CONSIDER RIGHT VENTRICULAR HYPERTROPHY OR RIGHT VCD LEFT ANTERIOR FASCICULAR BLOCK BORDERLINE T WAVE ABNORMALITY- DIFFUSE LEADS BASELINE ARTIFACT- II, III, AVF, V1 ABNORMAL ECG Electronically Signed On 03-20-2020 7:31:46 [employer] by Vance Molina D.O.
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
[2020-03-20] MEDS: MORPHINE SULFATE (*CRX) 4 MG/ML INJ IV PUSH ×4 (06:12→19:54)
[2020-03-20 06:30] LABS: Basophils Percent Auto 0.4 % (0.2-1.2); Eosinophils Absolute Auto 0.3 K/mm3 (0-0.3); Eosinophils Percent Auto 5.1 % (0-4.4); Hematocrit 33.4 % (42.0-52.0); Hemoglobin 11.1 g/dL (14.0-18.0); Immature Granulocyte Absolute 0.01 K/mm3 (0.00-0.031); Immature Granulocyte Percent A 0.2 % (0-0.5); Lymphocytes Percent Auto 30.2 % (18.3-44.2); Mean Corpuscular HGB Conc 33.2 g/dl (32-36); Mean Corpuscular Hemoglobin 27.3 pg (26-34); Mean Corpuscular Volume 82.1 fl (80-100); Mean Platelet Volume 8.5 fl (7.4-10.4); Monocytes Absolute Auto 0.5 K/mm3 (0.1-0.6); Monocytes Percent Auto 9.2 % (2.6-8.5); Neutrophils Absolute Auto 2.9 K/mm3 (1.3-6.7); Neutrophils Percent Auto 54.9 % (45.5-73.1); Platelet Count Result 276 k/mm3 (150-375); Red Blood Count 4.07 M/mm3 (4.6-6.20); Red Cell Distribution Width 15.1 % (11.5-14.5); White Blood Count 5.3 K/mm3 (4.5-10.0)
[2020-03-20 06:41] LABS: Prothrombin Time 13.9 Seconds (11.1-14.7)
[2020-03-20 06:44] LABS: Alanine Aminotransferase 21 U/L (4-50); Albumin Level 3.8 g/dL (3.5-5.1); Alkaline Phosphatase 51 U/L (38-126); Anion Gap 6 mmol/L (8-16); Aspartate Amino Transferase 29 U/L (17-59); Bilirubin,Total 0.3 mg/dL (0.2-1.3); Blood Urea Nitrogen 12 mg/dL (9-20); Carbon Dioxide 22 mmol/L (22-30); Chloride 109 mmol/L (98-107); Estimated CRCL calculation 72 ml/min; Estimated Glomerular Filt Rate > 60; Glucose 97 mg/dL (75-110); Lipase 23 U/L (23-300); Potassium 3.7 mmol/L (3.4-5.0); Sodium 137 mmol/L (137-145)
[2020-03-20 06:52] LABS: NT Pro B Type Natriuretic Pept 24 PG/ML (5-100)
[2020-03-20 06:56] LABS: Troponin I 0.027 ng/mL (0.000-0.034)
[2020-03-20 06:57] LABS: Band Neutrophils Percent 1 % (0-6); Eosinophils Absolute Manual 0.31 K/mm3 (0.02-0.5); Eosinophils Percent Manual 6 % (0-4); Lymphocytes Absolute Manual 1.27 K/mm3 (1.1-4.5); Monocytes Absolute Manual 0.63 K/mm3 (0.1-0.90); Monocytes Percent Manual 12 % (3-9); Neutrophils Absolute Manual 3.07 K/mm3 (1.3-6.7); Neutrophils Percent Manual 57 % (46-73); Total Cells Counted 100
[2020-03-20 06:58] LABS: Ovalocytes 1+ (NORMAL)
[2020-03-20 06:59] LABS: Partial Thromboplastin Time 29.4 SECONDS (22.3-36.8)
[2020-03-20 07:08] LABS: Platelet Estimate Adequate (Adequate)
[2020-03-20 09:21] LABS: Troponin I 0.024 ng/mL (0.000-0.034)
[2020-03-20] MEDS: SODIUM CHLORIDE 0.9% IV 500 ML 999 ML IV CONT (10:02)
--- NOTE | 2020-03-20 11:50 | ADMGEN ---
This patient, Shubham Sutton, was admitted to Medical Room 340-01. Patient/family oriented to hospital policies and general routines including ID bracelet, bed and alarms, visiting hours, pain management, procedures, bathroom and other care routines, personal items, smoking policy, room service/diet, and visiting hours. Information on how to activate the Rapid Response Team has been discussed. Patient/Family are encouraged to report perceived risks to care and to ask questions if they do not understand what they are told or what they should do.
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
[2020-03-20] MEDS: ONDANSETRON INJ 4 MG/2 ML VIAL IV PUSH (19:53)
[2020-03-20] MEDS: CALCIUM CARBONATE (TUMS) 500 MG (200 MG ELEMENTAL) PO (23:33)
[2020-03-21] VITALS (9 sets, daily range): BP systolic 136–143; BP diastolic 83–90; PULSE 64–78; RESP 16–18; TEMP 36.1–36.8; O2SAT 99–100
[2020-03-21] MEDS: ONDANSETRON INJ 4 MG/2 ML VIAL IV PUSH ×3 (04:57→16:24)
[2020-03-21] MEDS: MORPHINE SULFATE (*CRX) 4 MG/ML INJ IV PUSH ×2 (04:58→09:57)
[2020-03-21 06:21] LABS: Basophils Percent Auto 0.7 % (0.2-1.2); Eosinophils Absolute Auto 0.3 K/mm3 (0-0.3); Eosinophils Percent Auto 4.7 % (0-4.4); Hematocrit 36.3 % (42.0-52.0); Hemoglobin 11.8 g/dL (14.0-18.0); Immature Granulocyte Absolute 0.02 K/mm3 (0.00-0.031); Immature Granulocyte Percent A 0.3 % (0-0.5); Lymphocytes Percent Auto 29.9 % (18.3-44.2); Mean Corpuscular HGB Conc 32.5 g/dl (32-36); Mean Corpuscular Hemoglobin 27.8 pg (26-34); Mean Corpuscular Volume 85.6 fl (80-100); Mean Platelet Volume 8.5 fl (7.4-10.4); Monocytes Absolute Auto 0.7 K/mm3 (0.1-0.6); Monocytes Percent Auto 10.8 % (2.6-8.5); Neutrophils Absolute Auto 3.2 K/mm3 (1.3-6.7); Neutrophils Percent Auto 53.6 % (45.5-73.1); Platelet Count Result 285 k/mm3 (150-375); Red Blood Count 4.24 M/mm3 (4.6-6.20); Red Cell Distribution Width 15.2 % (11.5-14.5)
[2020-03-21 06:37] LABS: Alanine Aminotransferase 18 U/L (4-50); Albumin Level 3.8 g/dL (3.5-5.1); Alkaline Phosphatase 54 U/L (38-126); Anion Gap 6 mmol/L (8-16); Aspartate Amino Transferase 26 U/L (17-59); Bilirubin,Total 0.4 mg/dL (0.2-1.3); Blood Urea Nitrogen 9 mg/dL (9-20); Calcium 8.7 mg/dL (8.4-10.2); Carbon Dioxide 26 mmol/L (22-30); Chloride 105 mmol/L (98-107); Estimated CRCL calculation 64 ml/min; Estimated Glomerular Filt Rate > 60; Glucose 87 mg/dL (75-110); Magnesium 2.1 mg/dL (1.6-2.3); Potassium 3.8 mmol/L (3.4-5.0); Sodium 137 mmol/L (137-145)
[2020-03-21 08:11] LABS: Free T4 Free Thyroxine Reflex 0.55 ng/dL (0.78-2.19)
[2020-03-21] MEDS: CALCIUM CARBONATE (TUMS) 500 MG (200 MG ELEMENTAL) PO ×2 (09:58→16:24)
--- NOTE | 2020-03-21 11:15 | PM.IMPN ---
Progress Note: A&P Assessment and Plan (1) Chest pain: Qualifiers: Chest pain type: unspecified Qualified Code(s): R07.9 - Chest pain, unspecified Code(s): R07.9 - Chest pain, unspecified Status: Acute Assessment and Plan: Recent CT chest during previous admission last week demonstrated enlarging mediastinal lymphadenopathy. Troponins are negative, EKG without ST changes thus ACS is not suspected. Repeat CTA 03/20 demonstrates also evidence suggesting radiation pneumonitis; Discussed case with Dr. Giron and will start him on prednisone. Continue supportive care with Tylenol. (2) Non-small cell cancer of right lung: Code(s): C34.91 - Malignant neoplasm of unspecified part of right bronchus or lung Status: Acute Assessment and Plan: Follows with Dr. Giron for management of stage III non-small cell lung cancer with enlarging mediastinal lymphadenopathy here with chest discomfort. On maintenance immunotherapy with Keytruda and also follows with Dr. Mondragon for radiation therapy. Continue oncology recommendations. (3) Anemia: Qualifiers: Anemia type: unspecified type Qualified Code(s): D64.9 - Anemia, unspecified Code(s): D64.9 - Anemia, unspecified Status: Chronic Assessment and Plan: A chronic normocytic anemia is noted. Hgb appears to be at baseline. No evidence of acute bleeding. Monitor CBC. (4) Hypertension: Qualifiers: Hypertension type: unspecified Qualified Code(s): I10 - Essential (primary) hypertension Code(s): I10 - Essential (primary) hypertension Status: Chronic Assessment and Plan: Does not appear to be on any oral antihypertensives. BP stable, last 138/90. Hydralazine is available as needed. Subjective Date/time seen: 03/21/20 11:00 Interval history: Mr. Sutton is a pleasant 64yo M with lung cancer admitted for pain control. He has midline chest discomfort that is suspected to be related to an enlarged mediastinal lymph node. This morning he notes a significant headache. Appetite is poor but he denies any nausea, vomiting, or abdominal pain. Review of Systems Review of Systems: All systems reviewed & are unremarkable except as noted in HPI and below Exam Narrative: Exam Narrative: General: Male resting supine in bed in no acute distress. Resting with ice pack on head. HEENT: Normocephalic, EOMI, oral mucosa moist. Cardiovascular: Rate and rhythm are regular. Respiratory: Lungs clear to auscultation bilaterally. Respirations even and non-labored. Abdomen: Soft, non-tender, non-distended, bowel sounds present. Extremities: Peripheral pulses intact. No edema. Neuro: No focal neurological deficits. Speech is clear. Objective Data Vital Signs Vital Signs: Last Vital Signs Temp 98.2 F 03/21/20 14:00 Pulse 74 03/21/20 16:00 Resp 18 03/21/20 14:00 BP 138/90 03/21/20 14:00 Pulse Ox 100 03/21/20 14:00 Intake/Output Intake/Output: Intake & Output 03/18/20 03/19/20 03/20/20 03/21/20 23:59 23:59 23:59 23:59 Intake Total 1045 610 Output Total 625 600 Balance 420 10 Meds/Results Medications: Active Medications Generic Name Dose Route Start Last Admin Trade Name Freq PRN Reason Stop Dose Admin Calcium Carbonate 200 mg 03/20/20 15:50 03/21/20 09:58 Calcium Carbonate (Tums) 500 Mg (200 Mg Elemental) PO 200 mg Q6H PRN Administration Indigestion Hydralazine HCl 10 mg 03/20/20 15:51 Hydralazine Hcl 20 Mg/Ml Vial IV PUSH Q8H PRN Blood Pressure - High Morphine Sulfate 2 mg 03/21/20 11:13 Morphine Sulfate (*Crx) 4 Mg/Ml Inj IV PUSH Q4H PRN Pain Rated 7-10 Ondansetron HCl 4 mg 12/19/20 16:02 03/21/20 04:57 Ondansetron Inj 4
[2020-03-21] MEDS: predniSONE 20 MG TABLET 40 MG PO (12:27)
[2020-03-21] MEDS: ACETAMINOPHEN 500 MG TABLET 1000 MG PO ×3 (12:52→22:39)
[2020-03-22] VITALS: PULSE 88
[2020-03-22 04:00] VITALS: PULSE 79
[2020-03-22] MEDS: ACETAMINOPHEN 500 MG TABLET 1000 MG PO ×2 (05:04→11:13)
[2020-03-22 05:18] VITALS: BP 137/92; PULSE 79; RESP 18; TEMP 36.7; O2SAT 100
[2020-03-22 08:00] VITALS: PULSE 79
[2020-03-22] MEDS: LEVOTHYROXINE SODIUM 50 MCG TABLET PO (08:57)
[2020-03-22] MEDS: predniSONE 20 MG TABLET 40 MG PO (08:57)
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
[2020-03-22 12:00] VITALS: PULSE 76
[2020-03-22 13:27] VITALS: BP 147/91; PULSE 85; RESP 16; TEMP 35.9; O2SAT 99
--- NOTE | 2020-03-22 18:56 | PM.DS ---
DS: Admitting Diagnosis Admitting Diagnosis Admitting Diagnosis: Metastatic lung cancer DS: Discharge Diagnosis Discharge Diagnosis (1) Chest pain: Qualifiers: Chest pain type: unspecified Qualified Code(s): R07.9 - Chest pain, unspecified Code(s): R07.9 - Chest pain, unspecified Status: Acute Assessment and Plan: Date of Admission 03/20/20 Date of Discharge/DOS 03/22/20 Mr. Sutton is a 64yo M with known metastatic non-small cell lung cancer recently diagnosed with newer mediastinal lymphadenopathy, hypertension, recently hospitalized two weeks ago due to syncope, who presented to the ED for evaluation of chest pain. Cardiac workup was negative and ACS was not suspected. It is felt his discomfort correlates with the location of the mediastinal lymphadenopathy, radiation pneumonitis noted on imaging could also be contributing. He was treated with steroids for radiation pneumonitis and discharged with a tapered course of prednisone. TSH was elevated at 16 which appeared new based on previous labs, and he was started on low-dose levothyroxine. He has been following with Oncology, Dr Harris, and radiation oncology, Dr Mondragon, for his lung cancer and is scheduled to have outpatient PET scan in a few days. He was seen by Dr Giron here this admission and will follow up with him in the office after his PET scan for further treatment plans. He is also encouraged to follow up with his primary care provider regarding the elevated TSH. His pain improved with Tylenol and he was hemodynamically stable for discharge on 03/22/20. Recent CT chest during previous admission last week demonstrated enlarging mediastinal lymphadenopathy. Troponins are negative, EKG without ST changes thus ACS is not suspected. Repeat CTA 03/20 demonstrates also evidence suggesting radiation pneumonitis; Discussed case with Dr. Giron and will start him on prednisone. Continue supportive care with Tylenol. (2) Non-small cell cancer of right lung: Code(s): C34.91 - Malignant neoplasm of unspecified part of right bronchus or lung Status: Acute Assessment and Plan: Follows with Dr. Giron for management of stage III non-small cell lung cancer with enlarging mediastinal lymphadenopathy here with chest discomfort. On maintenance immunotherapy and also follows with Dr. Mondragon for radiation therapy. Continue oncology recommendations. (3) Anemia: Qualifiers: Anemia type: unspecified type Qualified Code(s): D64.9 - Anemia, unspecified Code(s): D64.9 - Anemia, unspecified Status: Chronic Assessment and Plan: A chronic normocytic anemia is noted. Hgb appears to be at baseline. No evidence of acute bleeding. Monitor CBC. (4) Hypertension: Qualifiers: Hypertension type: unspecified Qualified Code(s): I10 - Essential (primary) hypertension Code(s): I10 - Essential (primary) hypertension Status: Chronic Assessment and Plan: Does not appear to be on any oral antihypertensives. BP stable. Hydralazine is available as needed. DS: Summary Hospital Course Hospital Course: See above. Time Spent with Patient Time attestation: Total time spent providing and/or coordinating discharge services: 40 mintues Exam Narrative: Exam Narrative: General: Male resting supine in bed in no acute distress. HEENT: Normocephalic, EOMI, oral mucosa moist. Cardiovascular: Rate and rhythm are regular. Respiratory: Lungs clear to auscultation bilaterally. Respirations even and non-labored. Abdomen: Soft, non-tender, non-distended, bowel sounds present. Extremities: Peripheral pulses intact. No edema. Neuro: No focal neurological deficits. Speech is clear. DS: Data
--- NOTE | 2020-04-06 09:57 | PC.NURSE ---
Blood cx are negative.
== END 2020-03-22 16:00 | disposition home or self-care (01) ==
LOC: ANHED 07:41 → ANH3MED 17:46
PROVIDERS: Emergency Medicine; Nurse Practitioner; Admitting Provider Internal Medicine; Emergency Provider General Practice; PCP Family Medicine; Visit Provider Family Medicine
DX: R07.9 Chest pain, unspecified (principal); R59.0 Localized enlarged lymph nodes; I10 Essential (primary) hypertension; C34.11 Malignant neoplasm of upper lobe, right bronchus or lung; F32.9 Major depressive disorder, single episode, unspecified; D64.9 Anemia, unspecified; J43.9 Emphysema, unspecified; K44.9 Diaphragmatic hernia without obstruction or gangrene; Z98.1 Arthrodesis status
CPT/HCPCS: 36415; 71045; 71275; 80053; 82728; 83690; 83735; 83880; 84439; 84443; 84484; 85025; 85610; 85730; 87040; 93005; 96361; 96374; 96375; 96376; 99285; A9270; G0378; J0131; J2270; J2405; J7040; J7512; Q9967

== ENCOUNTER 2020-04-01 09:08 | Outpatient (CLI) | payer MEDICARE, SELFPAY ==
--- NOTE | ~2020-04-01 | PE_ITS ---
EXAMINATION: PET skull to mid thigh DATE: 04/01/2020 11:11 INDICATION: Malignant neoplasm of the right upper lobe. TECHNIQUE: 9.6 mCi of 18-fluorodeoxyglucose (18-FDG) was administered i.v. Low dose computed tomograp hy (CT) images were acquired from the base of the brain to the proximal thighs for attenuation correc tion and anatomic localization. Positron emission tomography (PET) images were acquired after injecti on. Images including fused PET/CT images were reconstructed in axial, coronal, and sagittal planes. A utomatic exposure control is employed as a dose reduction technique. COMPARISON: Pet/CT dated 05/15/2019 FINDINGS: Head/neck: There is mild uptake in the mucosal space without associated mass, likely physiologic. No suspicious hypermetabolic activity to suggest metastatic disease. Chest: Significantly decreased size right upper lobe mass measuring 3.3 x 0.9 cm greatest axial dimension co mpared with 5.9 x 4.9 cm on prior examination. There has been resolution of abnormal FDG uptake in th e right upper lobe mass. There is peripheral consolidation posteriorly in the right upper lobe which most likely represents atelectasis/scarring from radiation. There has been enlargement of a superior mediastinal lymph node now measuring approximately 3.5 x 3.3 cm containing internal calcifications. T here is maximum SUV of 10. There has been improvement of additional lymph nodes in the mediastinum wi th resolution of FDG uptake in these additional lymph nodes. Abdomen/pelvis/proximal thighs: The liver, spleen, pancreas, right adrenal gland and kidneys are unremarkable. There is a 3.2 x 2.2 c m mass in the left upper abdomen without appreciable FDG uptake, most likely an adrenal or exophytic from the spleen. No significant vascular abnormality. Nonobstructive bowel gas pattern. Surgical domingo ges are present in the right lower abdomen. Bones/Soft tissues: No hypermetabolic activity is identified in bones or soft tissues. IMPRESSION: 1. Partial interval response to therapy for right upper lobe mass with significantly decreased size a nd FDG uptake compared with prior examination. There is been interval improvement in size of multiple additional mediastinal lymph nodes with improved FDG uptake. There has been enlargement of a single superior mediastinal lymph node with brisk FDG uptake, consistent with metastatic disease. 2: Soft tissue mass left upper abdomen measuring 3.2 x 2.2 cm which may be exophytic from the spleen or an adrenal mass. No appreciable FDG uptake is identified. Reviewed, dictated and finalized at location A. MAKER IMPRESSION: 1. Partial interval response to therapy for right upper lobe mass with signific antly decreased size and FDG uptake compared with prior examination. There is b een interval improvement in size of multiple additional mediastinal lymph nodes with improved FDG uptake. There has been enlargement of a single superior medi astinal lymph node with brisk FDG uptake, consistent with metastatic disease. 2: Soft tissue mass left upper abdomen measuring 3.2 x 2.2 cm which may be exop hytic from the spleen or an adrenal mass. No appreciable FDG uptake is identifi ed.
[2020-04-01 09:48] LABS: Glucose Point of Care 99 (65-105)
== END 2020-04-01 09:09 | disposition home or self-care (01) ==
PROVIDERS: PCP Family Medicine; Visit Provider Radiology Radiation Oncology
DX: C34.11 Malignant neoplasm of upper lobe, right bronchus or lung (principal)
CPT/HCPCS: 78815; A9552

== ENCOUNTER 2020-04-14 12:35 | Observation (INO) | payer MEDICARE, SELFPAY ==
[2020-04-14] VITALS (49 sets, daily range): BP systolic 116–155; BP diastolic 86–108; PULSE 88–122; RESP 12–34; TEMP 36.1–37.2; O2SAT 92–100; BMI 19.7
--- NOTE | ~2020-04-14 | CT_ITS ---
EXAMINATION: CTA chest PE protocol DATE: 04/14/2020 15:46 INDICATION: Midsternal chest pain. Shortness of breath. TECHNIQUE: Computed tomography angiography (CTA) of the chest was performed with 100 mL Omnipaque-350 intravenous contrast timed to evaluate the pulmonary arteries. Coronal maximum intensity projection 3D-reconstructions were created by the technologist. Automated exposure control and iterative reconst ruction technique were employed. The dose-length product was 175.25 mGy-cm. COMPARISON: Chest CT 03/20/2020 FINDINGS: There is moderate emphysema. There are airspace opacities and architectural distortion in r ight upper lobe and superior segment right lower lobe, consistent with primary bronchogenic carcinoma and radiation pneumonitis. There is mild atelectasis bilaterally. Calcified bilateral lung nodules a nd calcified left hilar and mediastinal lymph nodes are consistent with old granulomatous disease. No pleural effusion. There is a left internal jugular port with tip at superior cavoatrial junction. Th ere is stenosis of left brachiocephalic vein, and there are enlarged collateral veins. There is media stinal lymphadenopathy. For example, a kike mass in the left superior mediastinum measures 3.3 x 3.0 cm, stable from 03/20/20. The heart size is normal. There are coronary artery calcifications. No per icardial effusion. There is no pulmonary embolus. There is a small sliding hiatal hernia. There is a 1.4 cm cyst in left kidney. 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 There is a penetrating atherosclerotic ulcer of infrarenal abdominal aorta on the right. There is mild thoracic spondylosis. IMPRESSION: 1. No pulmonary embolus. 2. Stable airspace opacities and architectural distortion in right upper lobe and superior segment ri ght lower lobe, consistent with primary bronchogenic carcinoma and radiation pneumonitis. 3. Stable mediastinal lymphadenopathy, consistent with metastatic disease. 4. Small sliding hiatal hernia. 5. Moderate emphysema. Reviewed, dictated and finalized at location A. R KILN IMPRESSION: 1. No pulmonary embolus. 2. Stable airspace opacities and architectural distortion in right upper lobe a nd superior segment right lower lobe, consistent with primary bronchogenic carc inoma and radiation pneumonitis. 3. Stable mediastinal lymphadenopathy, consistent with metastatic disease. 4. Small sliding hiatal hernia. 5. Moderate emphysema.
--- NOTE | ~2020-04-14 | XR_ITS ---
EXAMINATION: XR chest 2V EXAM DATE: 04/14/2020 13:02 INDICATION: Chest pain and shortness of breath. TECHNIQUE: Frontal and lateral projections of the chest obtained and reviewed. Comparison is made to prior examination from 03/20/2020. FINDINGS: There is a left sided ervin catheter line overlying expected position. Some right upper lo be scarring. The lungs are otherwise clear. There are no pleural effusions. The cardiomediastinal s ilhouette is within normal limits. There is no pneumothorax suspected. The bones and soft tissues a re unremarkable. There is no significant interval change. IMPRESSION: No acute cardiopulmonary findings. Reviewed, dictated and finalized at location B. SORTER
--- NOTE | 2020-04-14 12:39 | ECG_ITS ---
Measurements Intervals [place] Rate: 106 P: 66 TX: 148 QRS: -48 QRSD: 73 T: 70 QT: 301 QTc: 401 Interpretive Statements SINUS TACHYCARDIA LEFT ANTERIOR FASCICULAR BLOCK EARLY PRECORDIAL R/S TRANSITION BASELINE ARTIFACT- I, II, AVR, AVL, V1, V3 ABNORMAL ECG Electronically Signed On 04-14-2020 13:15:35 GIFT CONSULTANT by Vance Molina D.O.
[2020-04-14 13:08] LABS: Basophils Percent Auto 0.6 % (0.2-1.2); Eosinophils Percent Auto 0.7 % (0-4.4); Hemoglobin 13.6 g/dL (14.0-18.0); Immature Granulocyte Absolute 0.01 K/mm3 (0.00-0.031); Immature Granulocyte Percent A 0.2 % (0-0.5); Lymphocytes Absolute Auto 1.31 K/mm3 (0.9-3.2); Lymphocytes Percent Auto 24.3 % (18.3-44.2); Mean Corpuscular HGB Conc 32.4 g/dl (32-36); Mean Corpuscular Volume 86.6 fl (80-100); Mean Platelet Volume 8.6 fl (7.4-10.4); Monocytes Absolute Auto 0.5 K/mm3 (0.1-0.6); Monocytes Percent Auto 8.7 % (2.6-8.5); Neutrophils Absolute Auto 3.5 K/mm3 (1.3-6.7); Neutrophils Percent Auto 65.5 % (45.5-73.1); Platelet Count Result 242 k/mm3 (150-375); Red Blood Count 4.85 M/mm3 (4.6-6.20); Red Cell Distribution Width 15.9 % (11.5-14.5); White Blood Count 5.4 K/mm3 (4.5-10.0)
[2020-04-14 13:15] LABS: INR 0.9; Prothrombin Time 13.1 Seconds (11.1-14.7)
[2020-04-14 13:16] LABS: Partial Thromboplastin Time 27.1 SECONDS (22.3-36.8)
[2020-04-14 13:20] LABS: Anion Gap 8 mmol/L (8-16); Blood Urea Nitrogen 17 mg/dL (9-20); Calcium 9.9 mg/dL (8.4-10.2); Carbon Dioxide 24 mmol/L (22-30); Chloride 105 mmol/L (98-107); Estimated CRCL calculation 68 ml/min; Estimated Glomerular Filt Rate > 60; Glucose 90 mg/dL (75-110); Potassium 4.1 mmol/L (3.4-5.0); Sodium 137 mmol/L (137-145)
[2020-04-14 13:31] LABS: Troponin I 0.021 ng/mL (0.000-0.034)
[2020-04-14] MEDS: ASPIRIN 81 MG CHEWABLE TABLET 324 MG PO (14:29)
[2020-04-14] MEDS: SODIUM CHLORIDE 0.9% IV 1,000 ML 999 ML IV CONT (15:20)
[2020-04-14] MEDS: MORPHINE SULFATE (*CRX) 4 MG/ML INJ 2 MG IV PUSH ×3 (15:20→22:53)
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
[2020-04-14 16:33] LABS: Alanine Aminotransferase 18 U/L (4-50); Alkaline Phosphatase 52 U/L (38-126); Aspartate Amino Transferase 27 U/L (17-59); Bilirubin,Total 0.4 mg/dL (0.2-1.3); Lipase 26 U/L (23-300)
[2020-04-14 16:45] LABS: Troponin I 0.022 ng/mL (0.000-0.034)
[2020-04-14] MEDS: methylPREDNISolone SOD SUCC 125 MG VIAL IV PUSH (17:29)
[2020-04-14] MEDS: MORPHINE SULFATE (*CRX) 2 MG/ML INJ IV PUSH (18:51)
[2020-04-14 19:14] LABS: Troponin I 0.025 ng/mL (0.000-0.034)
[2020-04-14] MEDS: SODIUM CHLORIDE 0.9% IV 1,000 ML 80 ML IV CONT (19:45)
--- NOTE | 2020-04-14 21:25 | ADMGEN ---
This patient, Shubham Sutton, was admitted to [facility]. Patient/family oriented to hospital policies and general routines including ID bracelet, bed and alarms, visiting hours, pain management, procedures, bathroom and other care routines, personal items, smoking policy, room service/diet, and visiting hours. Information on how to activate the Rapid Response Team has been discussed. Patient/Family are encouraged to report perceived risks to care and to ask questions if they do not understand what they are told or what they should do.
[2020-04-15] VITALS (9 sets, daily range): BP systolic 132–145; BP diastolic 83–100; PULSE 83–103; RESP 15–18; TEMP 36.3–37.4; O2SAT 100; BMI 20.2
--- NOTE | 2020-04-15 | ECHO_ITS ---
Patient Info Name: Shubham Sutton Age: 64 years : 1955 Gender: Male Ht: 70 in Wt: 163 lbs BSA: 1.91 m2 HR: 85 bpm BP: 132 / 90 mmHg Heart Rhythm: Sinus Rhythm Technical Quality: Fair Exam Date: 04/15/2020 9:47 AM Exam Location: [facility] Pulmonary Exam Room: [facility] Patient Status: Outpatient Admit Date: 04/14/2020 Staff Ordering Physician: Marline Rodriguez MD Chief Accounting Officer: Abigail lEmore RCS Attending Provider: Izabela Miranda MD Referring Physician: Jennifer TORRES; Exam Type: CA echo doppler color flow Study Info Indications - sob lung ca chemo chest pain Complete two-dimensional, color flow and Doppler transthoracic echocardiogram is performed. Summary 1. Complete two-dimensional, color flow and Doppler transthoracic echocardiogram is performed. 2. Left ventricular systolic function is normal, estimated at >70%. 3. There is no increased left ventricular wall thickness. 4. The left ventricular diastolic function is grade I diastolic dysfunction. 5. Fixed 1.3cmx1.1cm echogenic mass seen within IVC just proximal to RA junction. Differential diagnosis includes tumor, vegetation, and/or thrombus. Appearance more concerning for tumor/mass. Clinical correlation advised. Left Ventricle Left ventricular chamber dimension is normal. Left ventricular systolic function is normal, estimated at >70%. There is no increased left ventricular wall thickness. The left ventricular diastolic function is grade I diastolic dysfunction. Right Ventricle Right ventricular chamber dimension is normal. Right ventricular systolic function is normal. Left Atria Left atrial chamber dimension is normal. Right Atria Right atrial chamber dimension is normal. Aortic Valve The aortic valve is not well visualized. There is no aortic valve stenosis. There is trace aortic valve regurgitation. Pulmonic Valve The pulmonic valve is not well visualized. Mitral Valve The mitral valve has normal leaflets. There is trace mitral valve regurgitation. The mitral valve annulus is mildly calcified. Tricuspid Valve The tricuspid valve leaflets are normal. There is trace tricuspid valve regurgitation. No pulmonary hypertension, estimated pulmonary arterial systolic pressure is 25 mmHg. Pericardium/Pleural The pericardium appears epicardial fat pad. There is no pericardial effusion. Inferior Vena Cava Normal inferior vena cava with >50% collapse upon inspiration consistent with normal right atrial pressure, 5 mmHg. Fixed 1.3cmx1.1cm echogenic mass seen within IVC just proximal to RA junction. Differential diagnosis includes tumor, vegetation, and/or thrombus. Appearance more concerning for tumor/mass. Clinical correlation advised. Aorta The aortic root size at the sinus of Valsalva is normal. There is mild aortic atherosclerosis. Left Ventricular Outflow Tract Name Value Normal LVOT 2D LVOT Diameter 2.0 cm LVOT Doppler LVOT Peak Gradient 6 mmHg LVOT Mean Gradient 3 mmHg LVOT VTI 25 cm LVOT VTI/AV VTI Ratio
[2020-04-15] MEDS: MORPHINE SULFATE (*CRX) 4 MG/ML INJ 2 MG IV PUSH ×2 (04:24→07:59)
[2020-04-15] MEDS: LEVOTHYROXINE SODIUM 50 MCG TABLET PO (06:02)
[2020-04-15 06:07] LABS: Basophils Percent Auto 0.3 % (0.2-1.2); Hematocrit 33.3 % (42.0-52.0); Immature Granulocyte Absolute 0.01 K/mm3 (0.00-0.031); Immature Granulocyte Percent A 0.3 % (0-0.5); Lymphocytes Absolute Auto 0.97 K/mm3 (0.9-3.2); Lymphocytes Percent Auto 24.6 % (18.3-44.2); Mean Corpuscular Hemoglobin 28.1 pg (26-34); Mean Corpuscular Volume 85.2 fl (80-100); Mean Platelet Volume 8.4 fl (7.4-10.4); Monocytes Absolute Auto 0.3 K/mm3 (0.1-0.6); Monocytes Percent Auto 7.1 % (2.6-8.5); Neutrophils Absolute Auto 2.7 K/mm3 (1.3-6.7); Neutrophils Percent Auto 67.7 % (45.5-73.1); Platelet Count Result 209 k/mm3 (150-375); Red Blood Count 3.91 M/mm3 (4.6-6.20); Red Cell Distribution Width 15.8 % (11.5-14.5); White Blood Count 3.9 K/mm3 (4.5-10.0)
[2020-04-15 06:12] LABS: Anion Gap 5 mmol/L (8-16); Blood Urea Nitrogen 15 mg/dL (9-20); Calcium 8.3 mg/dL (8.4-10.2); Carbon Dioxide 23 mmol/L (22-30); Chloride 106 mmol/L (98-107); Estimated CRCL calculation 78 ml/min; Estimated Glomerular Filt Rate > 60; Glucose 114 mg/dL (75-110); Potassium 4.4 mmol/L (3.4-5.0); Sodium 134 mmol/L (137-145)
[2020-04-15] MEDS: SODIUM CHLORIDE 0.9% IV 1,000 ML 80 ML IV CONT ×2 (07:46→20:08)
[2020-04-15 08:08] LABS: Cholesterol 164 mg/dL (0-200); HDL Direct 55 mg/dL; Triglycerides 82 mg/dL (<150)
[2020-04-15 08:18] LABS: LDL Cholesterol Direct 78 mg/dL
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
[2020-04-15 08:57] LABS: Troponin I 0.021 ng/mL (0.000-0.034)
[2020-04-15] MEDS: predniSONE 10 MG TABLET PO (08:57)
[2020-04-15] MEDS: ENOXAPARIN 40 MG/0.4 ML SYRINGE SUB-Q (08:57)
[2020-04-15] MEDS: ASPIRIN 81 MG CHEWABLE TABLET PO (08:57)
[2020-04-15 09:37] LABS: Troponin I 0.023 ng/mL (0.000-0.034)
[2020-04-15] MEDS: LOSARTAN POTASSIUM 25 MG TABLET PO (10:12)
--- NOTE | 2020-04-15 10:37 | ECG_ITS ---
Measurements Intervals [place] Rate: 94 P: 70 PA: 168 QRS: -35 QRSD: 79 T: 59 QT: 341 QTc: 428 Interpretive Statements SINUS RHYTHM LEFT AXIS DEVIATION EARLY PRECORDIAL R/S TRANSITION BASELINE WANDER- II, III BORDERLINE ECG Electronically Signed On 04-15-2020 9:38:16 PAYROLL BENEFITS ADMINISTRATOR by Vance Molina D.O.
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
[2020-04-15] MEDS: MORPHINE SULFATE (*CRX) 15 MG TAB IR PO (11:52)
[2020-04-15 13:09] LABS: Troponin I 0.024 ng/mL (0.000-0.034)
--- NOTE | 2020-04-15 13:37 | ECG_ITS ---
Measurements Intervals [place] Rate: 92 P: 65 FL: 163 QRS: -42 QRSD: 88 T: 55 QT: 318 QTc: 394 Interpretive Statements SINUS RHYTHM LEFT AXIS DEVIATION EARLY PRECORDIAL R/S TRANSITION BORDERLINE ECG Electronically Signed On 04-15-2020 19:17:10 TANDEM OPERATOR by Vance Molina D.O.
--- NOTE | 2020-04-15 16:00 | PC.NURSE ---
Upon assessment pt states pain in chest 5/10. States that does not want pain medication at this time due to drowsiness. Will continue to monitor.
[2020-04-15] MEDS: ACETAMINOPHEN 325 MG TABLET 650 MG PO (23:55)
[2020-04-16] VITALS: BP 134/83; PULSE 88; PULSE 94; RESP 16; TEMP 37; O2SAT 100
[2020-04-16 04:00] VITALS: PULSE 90
[2020-04-16 04:40] VITALS: BP 139/118; PULSE 90; RESP 16; TEMP 37.2; O2SAT 100
[2020-04-16] MEDS: ACETAMINOPHEN 325 MG TABLET 650 MG PO ×2 (04:40→08:57)
[2020-04-16 06:00] VITALS: BP 143/88
[2020-04-16] MEDS: LEVOTHYROXINE SODIUM 50 MCG TABLET PO (06:00)
[2020-04-16 08:00] VITALS: BP 144/100; PULSE 81; RESP 16; TEMP 36.7; O2SAT 100
[2020-04-16] MEDS: ASPIRIN 81 MG CHEWABLE TABLET PO (08:56)
[2020-04-16] MEDS: predniSONE 10 MG TABLET PO (08:57)
[2020-04-16] MEDS: LOSARTAN POTASSIUM 25 MG TABLET PO (08:57)
--- NOTE | 2020-04-16 09:32 | PM.PNCARD ---
Progress Note: A&P Additional Plan 64-year-old gentleman unfortunately who has lung cancer and is having some chest pain related to this. There is no evidence that this pain represents an acute coronary syndrome and as such no additional cardiac workup is recommended. We will sign off of his case disposition per the primary team Shubham Delcid MD [facility] Subjective Date/time seen: Date of service: 04/16/20 09:32 Interval history: Follow-up visit in this 64-year-old man with: Chest pain which appears to be related to lung cancer. Patient has pleuritic sounding chest pain no evidence of acute coronary syndrome and no evidence of wall motion abnormality by echo. Patient is more comfortable today with analgesics treatment. Hoping to be discharged. Exam Const: General: comfortable and no acute distress HENMT: Mouth: Yes moist mucous membranes Eyes: Sclera: sclerae normal Pupils: Equal, round and reactive pupils present Neck: Neck: supple and no JVD Resp: Effort & Inspection: normal respiratory effort Other: Breath sounds somewhat diminished but otherwise clear bilaterally Cardio: Rate: regular rate Rhythm: regular rhythm GI: GI Palp: Yes Soft to palpation Auscultation: normal bowel sounds Skin: General skin exam: normal color Neuro: Cognition (Neuro): normal cognition Objective Data Vital Signs Vital Signs: Vital Signs - 24 hr 04/15/20 12:00 04/15/20 15:52 04/15/20 20:00 Temperature 36.4 C L 36.8 C 37.4 C Pulse Rate 89 101 H 94 Respiratory Rate 16 16 16 Blood Pressure 142/100 H 134/94 H 136/83 Pulse Oximetry 100 100 100 04/15/20 23:55 04/16/20 00:00 04/16/20 04:00 Temperature 37.0 C 37.0 C Pulse Rate 88 90 Respiratory Rate 16 Blood Pressure 134/83 Pulse Oximetry 100 04/16/20 04:40 04/16/20 06:00 Temperature 37.2 C Pulse Rate 90 Respiratory Rate 16 Blood Pressure 139/118 H 143/88 H Pulse Oximetry 100 Intake/Output Intake/Output: Intake & Output 04/13/20 04/14/20 04/15/20 04/16/20 23:59 23:59 23:59 23:59 Intake Total 1000 3510 2150 Output Total 1325 1900 Balance 1000 2185 250 Meds/Results Medications: Active Medications Generic Name Dose Route Start Last Admin Trade Name Freq PRN Reason Stop Dose Admin Acetaminophen 650 mg 04/15/20 07:36 04/16/20 08:57 Acetaminophen 325 Mg Tablet PO 650 mg Q4H PRN Administration Mild Pain (1-3) Al Hydrox/Mg Hydrox/Simethicone 30 ml 04/15/20 07:36 Mag Hydrox/Al Hydrox/Simeth 30 Ml Udc PO Q6H PRN Indigestion Aspirin 81 mg 04/15/20 08:00 04/16/20 08:56 Aspirin 81 Mg Chewable Tablet PO 81 mg DAILY@0800 [facility] Administration Calcium Carbonate 200 mg 04/15/20 04:19 Calcium Carbonate (Tums) 500 Mg (200 Mg Elemental) PO Q6H PRN Indigestion Enoxaparin Sodium 40 mg 04/15/20 09:00 04/16/20 09:01 Enoxaparin 40 Mg/0.4 Ml Syringe SUB-Q Not Given DAILY JOHN Ceftriaxone Sodium/Dextrose 1 gm in 50 mls @ 100 mls/hr 04/15/20 10:45 04/15/20 12:23 Rocephin 1 Gm/D5w 50 Ml IVPB Infused DAILY JOHN Infusion Ibuprofen 400 mg 04/15/20 07:39 Ibuprofen 400 Mg Tablet PO Q6H PRN Pain Rated 1-3 Levothyroxine Sodium 50 mcg 04/15/20 06:30 04/16/20 06:00 Levothyroxine Sodium 50 Mcg Tablet PO 50 mcg DAILY@0630 [facility] Administration Losartan Potassium 25 mg 04/15/20 09:10 04/16/20 08:57 Losartan Potassium 25 Mg Tablet PO 25 mg QAM JOHN Administration Morphine Sulfate 15 mg 04/15/20 10:35 04/15/20 11:52 Morphine Sulfate (*Crx) 15 Mg Tab Ir PO 15 mg Q4H PRN Administration Pain Rated 7-10 Morphine Sulfate 2 mg 04/15/20 11:43 Morphine Sulfate (*Crx) 2 Mg/Ml Inj IV PUSH Q4H PRN Pain Rated 7-10 Nitroglycerin 0.4 mg 04/15/20 07:36 Nitroglycerin Sl 0.4 Mg Tablet SUBLINGUAL Q5MIN PRN Chest Pain Ondansetron HCl 4 mg 04/15/20 04:19 Ondansetron Hcl Odt 4 Mg Tablet PO Q8H PRN Naus
--- NOTE | 2020-04-16 11:22 | PM.DS ---
DS: Admitting Diagnosis Admitting Diagnosis Admitting Diagnosis: Chest pain DS: Discharge Diagnosis Discharge Diagnosis (1) Chest pain: Code(s): R07.9 - Chest pain, unspecified Status: Acute Assessment and Plan: Cardiology was consulted most likely atypical chest pain most likely related to mediastinal lymphadenopathy and non-small cell lung cancer follow-up with control room operator (2) Abnormal TSH: Code(s): R79.89 - Other specified abnormal findings of blood chemistry Status: Acute Assessment and Plan: Continue levothyroxine (3) Mediastinal mass: Code(s): J98.59 - Other diseases of mediastinum, not elsewhere classified Status: Acute Assessment and Plan: Most likely related to cancer follow-up as outpatient (4) Hypertension: Qualifiers: Hypertension type: unspecified Qualified Code(s): I10 - Essential (primary) hypertension Code(s): I10 - Essential (primary) hypertension Status: Chronic Assessment and Plan: Monitor (5) Non-small cell cancer of right lung: Code(s): C34.91 - Malignant neoplasm of unspecified part of right bronchus or lung Status: Acute Assessment and Plan: Pending hematology oncology evaluation (6) Lung mass: Code(s): R91.8 - Other nonspecific abnormal finding of lung field Status: Acute Assessment and Plan: Most likely related to lung cancer patient also has significant cough probable bacterial bronchitis patient will be discharged on oral antibiotics and inhaler treatment DS: Summary Hospital Course Hospital Course: Patient was admitted to the hospital chest pain has chest pain most likely related to enlarging mediastinal lymphadenopathy cardiology was consulted follow-up card assist as outpatient also patient was found to have bacterial bronchitis patient will be discharged on inhaler treatment and oral antibiotics Time Spent with Patient Time attestation: Total time spent providing and/or coordinating discharge services: Exam Narrative: Exam Narrative: Alert Chest no wheeze crackles Abdomen nontender nondistended CVS S1 + S2 Lower extremity edema DS: Data Data Completed and Pending Labs on day of discharge: Labs from last 24 hours 04/15/20 11:36 Troponin I 0.024 Discharge Plan Discharge Attending physician on discharge: aCtarino Moreno M.A. Consulting providers: Guadalupe Barr Discharging Clinician: aCtarino Moreno M.A. Anticipated Discharge Date/Time: 04/16/20 11:15 Patient Disposition: Home, Self-Care Activity: as tolerated Diet: as tolerated Patient Instructions: Antibiotic Form, Chest Pain (GEN), Pain Management (GEN) Stand Alone Forms: General Discharge Information Follow-up/Referrals: Jovany,Adrian Adair MD [Primary Care Provider] - Guadalupe Barr MD [Physician] - Discharge Medications: New albuterol sulfate 90 mcg/actuation HFA aerosol inhaler 1 inh inhalation QID PRN (Reason: shortness of breath or wheezing) Qty: 1 RF: 0 cefdinir 300 mg capsule 300 mg PO Q12H Qty: 6 RF: 0 Continued ondansetron HCl [Zofran] 4 mg Tablet 4 mg PO Q8H PRN (Reason: Nausea) RF: 0 calcium carbonate 500 mg calcium (1,250 mg) Tablet,Chewable 200 mg PO Q6H PRN (Reason: Indigestion) Qty: 30 RF: 0 levothyroxine [Synthroid] 50 mcg Tablet 50 mcg PO DAILY@0630 30 Days Qty: 30 RF: 0 prednisone 10 mg tablet 10 mg PO DAILY Qty: 44 RF: 0 Date of admission: 04/14/20 18:26 Primary Care Provider: JovanyAdrian Admitting Provider: Izabela Miranda Attending physician on admission: Izabela Miranda Condition: Stable
== END 2020-04-16 12:25 | disposition home or self-care (01) ==
LOC: ANHED 15:00 → ANHCPC 19:00
PROVIDERS: Emergency Medicine; Admitting Provider Family Medicine; Emergency Provider Emergency Medicine; PCP Family Medicine; Visit Provider Internal Medicine
DX: R07.89 Other chest pain (principal); C34.91 Malignant neoplasm of unspecified part of right bronchus or lung; R79.89 Other specified abnormal findings of blood chemistry; J98.59 Other diseases of mediastinum, not elsewhere classified; I10 Essential (primary) hypertension; R91.8 Other nonspecific abnormal finding of lung field; Z92.21 Personal history of antineoplastic chemotherapy
CPT/HCPCS: 36415; 71046; 71275; 80048; 80061; 80076; 83690; 84484; 85025; 85610; 85730; 87040; 93005; 93306; 96361; 96365; 96374; 96375; 96376; 99285; A9270; G0378; J0696; J1650; J2270; J2930; J7030; J7512; Q9967

== ENCOUNTER 2020-05-20 09:20 | Emergency (ER) | payer MEDICARE, SELFPAY ==
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
[2020-05-20 09:39] VITALS: BP 116/73; PULSE 80; RESP 16; TEMP 36.3; O2SAT 100
[2020-05-20 10:05] VITALS: BP 116/73; PULSE 80; RESP 16; TEMP 36.3; O2SAT 100
== END 2020-05-20 10:08 | disposition home or self-care (01) ==
PROVIDERS: Emergency Provider Nurse Practitioner Family
DX: H11.31 Conjunctival hemorrhage, right eye (principal); M19.90 Unspecified osteoarthritis, unspecified site; I10 Essential (primary) hypertension; Z85.118 Personal history of other malignant neoplasm of bronchus and lung; I25.2 Old myocardial infarction
CPT/HCPCS: 99213; A9270; G0463

== ENCOUNTER 2020-07-05 07:48 | Outpatient (CLI) | payer MEDICARE, SELFPAY ==
--- NOTE | ~2020-07-05 | CT_ITS ---
EXAMINATION: CT diagnostic chest w con EXAM DATE: 07/05/2020 08:32 INDICATION: Malignant neoplasm of upper lobe of RT lung . TECHNIQUE: Spiral CT of the chest following intravenous injection of 75 mL Omnipaque 350. Axial, cor onal and sagittal images were reviewed. Coronal maximum intensity pixel images of chest reviewed. Lorenza quintero dose-length product (DLP) for this examination was 131.35 mGy-cm. The exposure was tailored accor ding to patient size (auto mA exposure control), and iterative reconstruction (ASIR) was used as brenda tional dose reduction technique. Comparison is made to prior examination from 04/14/2020. FINDINGS: Again there is right upper lobe scarring and volume loss, and small amount of ill-defined soft tissue density insinuating into the right hilum. This is consistent with patient's treated lung cancer. Previously seen prevascular lymphadenopathy measuring up to about 3.4 cm is now an ill-define d region measuring about 1.4 cm, substantially decreased in volume. There is generalized hazy mediast inal fat stranding. There is a left-sided portacatheter. There is moderate to severe upper lobe emphysema, mild to moderate at the lung bases. There are no pl eural or pericardial effusions. Tracheobronchial tree is patent. There is no mediastinal, hilar o r axillary lymphadenopathy. There is no pneumothorax. Heart normal in size. There is mild coron radha arterial calcification, arterial sclerosis. There is small sliding gastroesophageal hiatal herni a. No osteoblastic or osteolytic lesions identified. IMPRESSION: 1. Stable right upper lobe radiation fibrosis, ill-defined right hilar soft tissue. Treated lung can cer. 2. Significant decrease in bulk of the previously seen prevascular lymphadenopathy. 3. Overall moderate emphysema. 4. Small hiatal hernia. Reviewed, dictated and finalized at location A. IMPRESSION: 1. Stable right upper lobe radiation fibrosis, ill-defined right hilar soft ti ssue. Treated lung cancer. 2. Significant decrease in bulk of the previously seen prevascular lymphadenop athy. 3. Overall moderate emphysema. 4. Small hiatal hernia.
== END 2020-07-05 07:49 | disposition home or self-care (01) ==
PROVIDERS: Visit Provider Internal Medicine Hematology & Oncology
DX: C34.11 Malignant neoplasm of upper lobe, right bronchus or lung (principal); J43.9 Emphysema, unspecified; K44.9 Diaphragmatic hernia without obstruction or gangrene; R91.8 Other nonspecific abnormal finding of lung field
CPT/HCPCS: 71260; Q9967

== ENCOUNTER 2020-08-23 12:47 | Observation (INO) | payer MEDICARE, SELFPAY ==
[2020-08-23] VITALS (14 sets, daily range): BP systolic 105–132; BP diastolic 71–91; PULSE 72–104; RESP 10–33; TEMP 36.7–37.1; O2SAT 94–100; BMI 21.6; BMI 20.7
--- NOTE | ~2020-08-23 | CT_ITS ---
EXAMINATION: CTA chest PE protocol DATE: 08/23/2020 14:46 INDICATION: Lung cancer. Shortness of breath. TECHNIQUE: Computed tomography angiography (CTA) of the chest was performed with 100 mL Omnipaque-350 intravenous contrast timed to evaluate the pulmonary arteries. Coronal maximum intensity projection 3D-reconstructions were created by the technologist. Automated exposure control and iterative reconst ruction technique were employed. The dose-length product was 259.20 mGy-cm. COMPARISON: Chest CT 07/05/2020, 04/14/2020 FINDINGS: There are airspace opacities with architectural distortion and volume loss involving right upper lobe and superior segment right lower lobe, consistent with radiation fibrosis. There is modera te emphysema. There is mild atelectasis bilaterally. There is a small left posterior diaphragmatic he rnia containing fat. Calcified left hilar and mediastinal lymph nodes are consistent with old granulo matous disease. There is mild mediastinal lymphadenopathy. For example, there is a 2.2 x 1.0 cm lymph node in the superior mediastinum with eccentric calcifications. No pleural effusion. The heart size is normal. No pericardial effusion. There is no pulmonary embolus. There is a left internal jugular p ort with tip in right atrium. There is a small sliding hiatal hernia. 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 There is a penetrating atherosclerotic ulcer o f infrarenal aorta. There is mild thoracic spondylosis. IMPRESSION: 1. Stable radiation fibrosis involving right upper lobe and superior segment right lower lobe. 2. Mild mediastinal lymphadenopathy, stable from 07/05/2020 and improved from 04/14/2020, consistent wit h metastatic disease. 3. Moderate emphysema. 4. No pulmonary embolus. 5. Small sliding hiatal hernia. Reviewed, dictated and finalized at location B. IMPRESSION: 1. Stable radiation fibrosis involving right upper lobe and superior segment ri ght lower lobe. 2. Mild mediastinal lymphadenopathy, stable from 07/05/2020 and improved from 04/02, consistent with metastatic disease. 3. Moderate emphysema. 4. No pulmonary embolus. 5. Small sliding hiatal hernia.
--- NOTE | ~2020-08-23 | XR_ITS ---
EXAMINATION: XR chest 2V DATE: 08/23/2020 13:25 INDICATION: Shortness of breath. Dizziness. TECHNIQUE: Frontal and lateral views of the chest were obtained. COMPARISON: Chest 2 views 04/14/2020, chest CT 07/05/2020 FINDINGS: There is volume loss of right hemithorax with airspace opacities and architectural distorti on in right upper lobe, consistent with scarring. There is mild atelectasis at left lung base. No ple ural effusion or pneumothorax. The heart size is normal. There is a left internal jugular port with t ip in right atrium. Calcified left hilar and mediastinal lymph nodes are consistent with old granulom atous disease. IMPRESSION: 1. Stable right upper lobe scarring. 2. Mild atelectasis at left lung base. Reviewed, dictated and finalized at location B.
--- NOTE | ~2020-08-23 | MR_ITS ---
EXAMINATION: MR brain/brain stem wo/w con DATE: 08/24/2020 10:54 INDICATION: Dizziness. Weakness. Lung cancer. TECHNIQUE: Magnetic resonance imaging (MRI) of the brain and brainstem was performed without and with 12 mL MultiHance intravenous contrast. Sequences included sagittal and axial T1-weighted FSE, axial diffusion-weighted FS EPI, axial T2*-weighted GRE, axial T2-weighted FLAIR Propeller, and axial T2-we ighted Propeller. Postcontrast sequences included axial and coronal T1-weighted FSE. Apparent diffusi on coefficient (ADC) maps were created. COMPARISON: Brain MRI 05/15/2019, head CT 08/23/2020 FINDINGS: There is artifact from posterior fusion procedure in cervical spine. There are scattered ar eas of nonspecific increased T2-weighted signal intensity in the cerebral white matter and conrad. Ther e is no intracranial hemorrhage, acute infarction, or abnormal intracranial mass lesion. The ventricl es are normal in size. The paranasal sinuses are clear. The orbits are normal. There is a trace right mastoid effusion. IMPRESSION: 1. Stable mild nonspecific cerebral white matter disease and pontine disease, which likely represents chronic small vessel ischemic disease. Reviewed, dictated and finalized at location B. IMPRESSION: 1. Stable mild nonspecific cerebral white matter disease and pontine disease, w hich likely represents chronic small vessel ischemic disease.
--- NOTE | ~2020-08-23 | CT_ITS ---
EXAMINATION: CT brain wo con DATE: 08/23/2020 14:46 INDICATION: Headache. Weakness. TECHNIQUE: Computed tomography (CT) of the head was performed without intravenous contrast. The mA wa s adjusted according to patient size. Iterative reconstruction technique was employed. The dose-lengt h product was 605.33 mGy-cm. COMPARISON: Head CT 03/13/2020, brain MRI 05/15/2019 FINDINGS: There are scattered areas of low attenuation in the cerebral white matter. There is no intr acranial hemorrhage, acute infarction, or abnormal intracranial mass lesion. The ventricles are johanny l in size. The paranasal sinuses are clear. The mastoid air cells are normal. IMPRESSION: 1. Stable mild nonspecific cerebral white matter disease, which likely represents chronic small vesse l ischemic disease. Reviewed, dictated and finalized at location B. IMPRESSION: 1. Stable mild nonspecific cerebral white matter disease, which likely represen ts chronic small vessel ischemic disease.
--- NOTE | 2020-08-23 12:50 | ECG_ITS ---
Measurements Intervals Leslie Rate: 96 P: 72 ND: 170 QRS: -74 QRSD: 91 T: 54 QT: 333 QTc: 421 Interpretive Statements SINUS RHYTHM LEFT ANTERIOR FASCICULAR BLOCK ABNORMAL ECG Electronically Signed On 08-23-2020 13:08:42 CDT by Vance Molina D.O.
[2020-08-23 13:07] LABS: Basophils Absolute Auto 0.1 K/mm3 (0.0-0.1); Basophils Percent Auto 1.2 % (0.2-1.2); Eosinophils Absolute Auto 0.1 K/mm3 (0-0.3); Eosinophils Percent Auto 2.6 % (0-4.4); Hematocrit 43.6 % (42.0-52.0); Hemoglobin 14.2 g/dL (14.0-18.0); Immature Granulocyte Absolute 0.01 K/mm3 (0.00-0.031); Immature Granulocyte Percent A 0.2 % (0-0.5); Lymphocytes Absolute Auto 1.17 K/mm3 (0.9-3.2); Lymphocytes Percent Auto 27.5 % (18.3-44.2); Mean Corpuscular HGB Conc 32.6 g/dl (32-36); Mean Corpuscular Hemoglobin 28.4 pg (26-34); Mean Corpuscular Volume 87.2 fl (80-100); Mean Platelet Volume 9.3 fl (7.4-10.4); Monocytes Absolute Auto 0.6 K/mm3 (0.1-0.6); Monocytes Percent Auto 14.4 % (2.6-8.5); Neutrophils Absolute Auto 2.3 K/mm3 (1.3-6.7); Neutrophils Percent Auto 54.1 % (45.5-73.1); Platelet Count Result 235 k/mm3 (150-375); Red Cell Distribution Width 14.6 % (11.5-14.5); White Blood Count 4.3 K/mm3 (4.5-10.0)
[2020-08-23 13:16] LABS: Anion Gap 9 mmol/L (8-16); Blood Urea Nitrogen 17 mg/dL (9-20); Calcium 10.1 mg/dL (8.4-10.2); Carbon Dioxide 24 mmol/L (22-30); Chloride 104 mmol/L (98-107); Estimated CRCL calculation 54 ml/min; Estimated Glomerular Filt Rate > 60; Glucose 103 mg/dL (75-110); Potassium 3.4 mmol/L (3.4-5.0); Sodium 137 mmol/L (137-145)
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
[2020-08-23 14:00] LABS: Alveolar/Arterial O2 Gradient 24.8 mmHg; Base Excess ABG 2.8 mEq/l (+/-2.0); Carboxyhemoglobin 1.2 % THb (0-2.0); Fractional Inspired Oxygen 21 %; HCO3 ABG 24.2 mEq/l (22.0-26.0); Methemoglobin ABG 0.3 %THb (0-1.5); Oxygen Content ABG 19.5 %vol (16.0-22.0); Oxygen Saturation ABG 97.8 % (95.0-100.0); PCO2 ABG 28.6 mmHg (35.0-45.0); PO2 ABG 90.7 mmHg (80.0-100.0); PO2 FiO2 Ratio Arterial Blood 4.32 %; Reduced Hemoglobin 2.5 %THb (0-5.0); Total Hemoglobin 14.4 g/dL (12.0-18.0)
[2020-08-23 14:01] LABS: Device ROOM AIR; Modified Allen's Test Pass; Site Drawn RIGHT RADIAL; pH ABG 7.545 (7.350-7.450)
[2020-08-23] MEDS: LACTATED RINGERS 1,000 ML 999 ML IV CONT (14:06)
[2020-08-23 14:10] LABS: Alanine Aminotransferase 14 U/L (4-50); Alkaline Phosphatase 70 U/L (38-126); Aspartate Amino Transferase 32 U/L (17-59); Bilirubin,Total 0.8 mg/dL (0.2-1.3)
--- NOTE | 2020-08-23 14:10 | PC.NURSE ---
called @ [phone] to main lab talked to mariola to add hepatic, pt, ptt, d-dimer, trop
[2020-08-23 14:13] LABS: Prothrombin Time 13.5 Seconds (11.1-14.7)
[2020-08-23 14:14] LABS: Partial Thromboplastin Time 29.7 SECONDS (22.3-36.8)
[2020-08-23 14:22] LABS: Troponin I 0.025 ng/mL (0.000-0.034)
[2020-08-23 14:59] LABS: Add Urine Microscopic? YES; Appearance Urine Clear (Clear); Bilirubin Urine Negative (Negative); Blood Urine 1+ (Negative); Color Urine Yellow (Yellow); Glucose Urine UA Negative (Negative); Ketones Urine Trace mg/dL (Negative); Leukocyte Esterase Ur Negative LEU/UL (Negative); Mucus Urine Few /lpf; Nitrate Urine Negative (Negative); Protein Urine Negative (Negative); Squamous Epithelial Cell Urine Rare /hpf (Few); WBC Urine 0-3 /hpf
[2020-08-23] MEDS: SODIUM CHLORIDE 0.9% IV 500 ML 999 ML IV CONT (17:06)
[2020-08-23] MEDS: MECLIZINE HCL 25 MG TABLET PO (17:07)
--- NOTE | 2020-08-23 19:01 | ADMGEN ---
This patient, Shubham Sutton, was admitted to 3 [facility] Surg Room 313-01. Patient/family oriented to hospital policies and general routines including ID bracelet, bed and alarms, visiting hours, pain management, procedures, bathroom and other care routines, personal items, smoking policy, room service/diet, and visiting hours. Information on how to activate the Rapid Response Team has been discussed. Patient/Family are encouraged to report perceived risks to care and to ask questions if they do not understand what they are told or what they should do.
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
[2020-08-24] VITALS (12 sets, daily range): BP systolic 100–123; BP diastolic 68–87; PULSE 73–92; RESP 16–18; TEMP 36.4–36.7; O2SAT 98–100
[2020-08-24 06:03] LABS: Basophils Percent Auto 0.8 % (0.2-1.2); Eosinophils Absolute Auto 0.2 K/mm3 (0-0.3); Eosinophils Percent Auto 6.4 % (0-4.4); Hematocrit 35.5 % (42.0-52.0); Hemoglobin 11.4 g/dL (14.0-18.0); Immature Granulocyte Absolute 0.01 K/mm3 (0.00-0.031); Immature Granulocyte Percent A 0.3 % (0-0.5); Lymphocytes Percent Auto 41.6 % (18.3-44.2); Mean Corpuscular HGB Conc 32.1 g/dl (32-36); Mean Corpuscular Hemoglobin 28.1 pg (26-34); Mean Corpuscular Volume 87.4 fl (80-100); Monocytes Absolute Auto 0.6 K/mm3 (0.1-0.6); Monocytes Percent Auto 17.5 % (2.6-8.5); Neutrophils Absolute Auto 1.2 K/mm3 (1.3-6.7); Neutrophils Percent Auto 33.4 % (45.5-73.1); Platelet Count Result 191 k/mm3 (150-375); Red Blood Count 4.06 M/mm3 (4.6-6.20); Red Cell Distribution Width 14.4 % (11.5-14.5); White Blood Count 3.6 K/mm3 (4.5-10.0)
[2020-08-24 06:12] LABS: Alanine Aminotransferase 9 U/L (4-50); Albumin Level 3.9 g/dL (3.5-5.1); Alkaline Phosphatase 51 U/L (38-126); Anion Gap 8 mmol/L (8-16); Aspartate Amino Transferase 25 U/L (17-59); Bilirubin,Total 0.5 mg/dL (0.2-1.3); Blood Urea Nitrogen 19 mg/dL (9-20); Calcium 8.8 mg/dL (8.4-10.2); Carbon Dioxide 25 mmol/L (22-30); Chloride 106 mmol/L (98-107); Estimated CRCL calculation 52 ml/min; Estimated Glomerular Filt Rate > 60; Glucose 87 mg/dL (75-110); Potassium 3.6 mmol/L (3.4-5.0); Sodium 139 mmol/L (137-145)
[2020-08-24 06:59] LABS: Anisocytosis 2+ (NORMAL); Platelet Estimate Adequate (Adequate)
[2020-08-24 07:00] LABS: Large Platelets Present; Ovalocytes 1+ (NORMAL)
[2020-08-24] MEDS: hydroCHLOROthiazide 12.5 MG CAPSULE PO (08:16)
--- NOTE | 2020-08-24 10:15 | PC.NURSE ---
Patient to MRI per wheelchair.
--- NOTE | 2020-08-24 11:15 | PM.IMPN ---
Progress Note: A&P Assessment and Plan (1) Lightheadedness: Code(s): R42 - Dizziness and giddiness Status: Acute Assessment and Plan: Patient is a 65-year-old man with a history of metastatic lung cancer who underwent chemo and radiation in finish in May 2020, who presented to the emergency room after he was standing up taking a shower and became lightheaded, weak and off balance. He had his 1st COVID vaccine Pfizer on 08/20/20 and had been feeling well all up until taking a shower the other day. Initial labs showed he was afebrile, heart rate 99, respiratory rate 22, blood pressure 132/91, oxygen saturation 100% on room air. Initial labs showed Leukopenia 4.3, normal H&H, normal platelet count, normal coag panel ABG showing hyperventilation respiratory alkalosis. Normal CMP. Normal troponin. Urinalysis showing 1+ blood, 3-5 RBCs, 2.0 urobilirubin. CTA chest showed Stable radiation fibrosis involving right upper lobe and superior segment right lower lobe. Mild mediastinal lymphadenopathy, stable from 07/05/2020 and improved from 04/14/2020, consistent with metastatic disease. Moderate emphysema. No pulmonary embolus. CT head showed Stable mild nonspecific cerebral white matter disease, which likely represents chronic small vessel ischemic disease. The patient was admitted to the hospital due to lightheadedness and weakness in further evaluation. Patient still having lightheadedness and weakness. Will start IV fluids at 75 cc an hour due to dark urine and appearing dehydrated. MRI brain showed table mild nonspecific cerebral white matter disease and pontine disease, which likely represents chronic small vessel ischemic disease. Order PT and OT work with him to the weakness and symptoms No acute infection noted at this time. Will recheck labs in the morning and see how he is feeling. (2) Normocytic anemia: Code(s): D64.9 - Anemia, unspecified Status: Acute Assessment and Plan: Normal H&H on arrival, today hemoglobin dropped from 14-11. No acute signs of bleeding at this time. Will order anemia labs with iron testing, vitamin B12, folic acid Could be dilutional from IV fluid hydration. Patient is on PPI twice daily. Continue monitoring q.8hr. Transfuse if hemoglobin less than 7. (3) Unsteady gait: Code(s): R26.81 - Unsteadiness on feet Status: Acute Assessment and Plan: PT/OT. Normal brain imaging. (4) Hypertension: Qualifiers: Hypertension type: unspecified Qualified Code(s): I10 - Essential (primary) hypertension Code(s): I10 - Essential (primary) hypertension Status: Chronic Assessment and Plan: Blood pressure stable 108/77. Continue home medications. (5) Non-small cell cancer of right lung: Code(s): C34.91 - Malignant neoplasm of unspecified part of right bronchus or lung Status: Acute Assessment and Plan: Followed by oncology. Recommend follow-up after discharge for further evaluation and monitoring. (6) Metastatic lung carcinoma: Code(s): C78.00 - Secondary malignant neoplasm of unspecified lung Status: Acute Time Spent With Patient Time with patient: 25 - 35 minutes Subjective Date/time seen: 08/24/20 11:15 Interval history: Date of service 08/24/2020: Patient still feeling weak and fatigued. Still feeling lightheaded with sitting and standing. He states he has not been drinking enough water and feels dehydrated. His urine is dark in color, denies any dysuria, frequent urination, at this time. He denies any fevers, chills, chest pain, cough, nausea, vomiting, abdominal pain, diarrhea, leg swelling, calf pain, or any other symptoms at this time. Review o
[2020-08-24] MEDS: PANTOPRAZOLE 40 MG TABLET PO ×2 (11:36→20:22)
[2020-08-24] MEDS: ENOXAPARIN 40 MG/0.4 ML SYRINGE SUB-Q (11:36)
[2020-08-24] MEDS: LACTATED RINGERS 1,000 ML 75 ML IV CONT (11:38)
[2020-08-24 11:57] LABS: Hemoglobin 11.8 g/dL (14.0-18.0)
[2020-08-24 12:40] LABS: Transferrin 188 mg/dL (206-381)
[2020-08-24 13:39] LABS: Folic Acid 13.5 ng/mL (2.76->20)
[2020-08-24 14:34] LABS: Iron 74 ug/dL (49-181)
[2020-08-24 14:43] LABS: Percent Iron Saturation 30 % (20-50)
[2020-08-24] MEDS: ACETAMINOPHEN 325 MG TABLET 650 MG PO (20:22)
[2020-08-24 21:35] LABS: Hematocrit 37.2 % (42.0-52.0); Hemoglobin 11.6 g/dL (14.0-18.0)
[2020-08-25] VITALS: PULSE 73
[2020-08-25] MEDS: LACTATED RINGERS 1,000 ML 75 ML IV CONT (01:15)
[2020-08-25 04:00] VITALS: PULSE 72
[2020-08-25 06:00] VITALS: BP 120/88; PULSE 69; RESP 16; TEMP 36.3; O2SAT 100
[2020-08-25 06:11] LABS: Hematocrit 34.8 % (42.0-52.0); Hemoglobin 11.2 g/dL (14.0-18.0); Mean Corpuscular HGB Conc 32.2 g/dl (32-36); Mean Corpuscular Hemoglobin 28.6 pg (26-34); Mean Platelet Volume 9.3 fl (7.4-10.4); Platelet Count Result 183 k/mm3 (150-375); Red Blood Count 3.91 M/mm3 (4.6-6.20); Red Cell Distribution Width 14.5 % (11.5-14.5); White Blood Count 3.1 K/mm3 (4.5-10.0)
[2020-08-25 06:27] LABS: Potassium 3.9 mmol/L (3.4-5.0)
[2020-08-25 06:30] LABS: Anion Gap 7 mmol/L (8-16); Blood Urea Nitrogen 13 mg/dL (9-20); Calcium 8.8 mg/dL (8.4-10.2); Carbon Dioxide 23 mmol/L (22-30); Chloride 109 mmol/L (98-107); Estimated CRCL calculation 63 ml/min; Estimated Glomerular Filt Rate > 60; Glucose 82 mg/dL (75-110); Sodium 139 mmol/L (137-145)
[2020-08-25 08:00] VITALS: PULSE 76
[2020-08-25] MEDS: PANTOPRAZOLE 40 MG TABLET PO (08:47)
[2020-08-25] MEDS: ACETAMINOPHEN 325 MG TABLET 650 MG PO (08:47)
[2020-08-25] MEDS: ENOXAPARIN 40 MG/0.4 ML SYRINGE SUB-Q (08:48)
[2020-08-25] MEDS: hydroCHLOROthiazide 12.5 MG CAPSULE PO (08:48)
--- NOTE | 2020-08-25 11:57 | PM.DS ---
DS: Admitting Diagnosis Admitting Diagnosis Admitting Diagnosis: Weakness DS: Discharge Diagnosis Discharge Diagnosis (1) Lightheadedness: Code(s): R42 - Dizziness and giddiness Status: Acute Assessment and Plan: Patient is a 65-year-old man with a history of metastatic lung cancer who underwent chemo and radiation in finish in May 2020, who presented to the emergency room after he was standing up taking a shower and became lightheaded, weak and off balance. He had his 1st COVID vaccine Pfizer on 08/20/20 and had been feeling well all up until taking a shower the other day. Initial labs showed he was afebrile, heart rate 99, respiratory rate 22, blood pressure 132/91, oxygen saturation 100% on room air. Initial labs showed Leukopenia 4.3, normal H&H, normal platelet count, normal coag panel ABG showing hyperventilation respiratory alkalosis. Normal CMP. Normal troponin. Urinalysis showing 1+ blood, 3-5 RBCs, 2.0 urobilirubin. CTA chest showed Stable radiation fibrosis involving right upper lobe and superior segment right lower lobe. Mild mediastinal lymphadenopathy, stable from 07/05/2020 and improved from 04/14/2020, consistent with metastatic disease. Moderate emphysema. No pulmonary embolus. CT head showed Stable mild nonspecific cerebral white matter disease, which likely represents chronic small vessel ischemic disease. The patient was admitted to the hospital due to lightheadedness and weakness in further evaluation. MRI brain showed table mild nonspecific cerebral white matter disease and pontine disease, which likely represents chronic small vessel ischemic disease. Patient received IV fluids overnight and is feeling much better today. Still slightly fatigued but denies any lightheadedness, dizziness or any syncopal episodes. Blood pressure stable today. He worked well with physical and occupational therapy. He is no signs of an infection and is stable for discharge at this time. He is to follow-up with primary care provider within [address] Giron his oncologist after discharge for further evaluation. Patient understands and agrees the plan all questions answered. (2) Normocytic anemia: Code(s): D64.9 - Anemia, unspecified Status: Acute Assessment and Plan: Normal H&H on arrival, today hemoglobin dropped from 14-11. No acute signs of bleeding at this time. Anemia labs - Iron panel showing no iron def anemia, normal vitamin B12 and folic acid Could be dilutional from IV fluid hydration and underlying cancer. H&H stable. (3) Unsteady gait: Code(s): R26.81 - Unsteadiness on feet Status: Acute Assessment and Plan: PT/OT cleared him. Normal brain imaging. (4) Hypertension: Qualifiers: Hypertension type: unspecified Qualified Code(s): I10 - Essential (primary) hypertension Code(s): I10 - Essential (primary) hypertension Status: Chronic Assessment and Plan: Blood pressure stable 120/88. Stable. (5) Non-small cell cancer of right lung: Code(s): C34.91 - Malignant neoplasm of unspecified part of right bronchus or lung Status: Acute Assessment and Plan: Followed by oncology. Recommend follow-up after discharge for further evaluation and monitoring. (6) Metastatic lung carcinoma: Code(s): C78.00 - Secondary malignant neoplasm of unspecified lung Status: Acute DS: Summary Hospital Course Hospital Course: Please see above Status at Discharge Cognitive/behavioral status at discharge: Stable, improved. Time Spent with Patient Time attestation: Total time spent providing and/or coordinating discharge services: 41 Time spent: Greater than 30 minutes Exam Nam
[2020-08-25 12:00] VITALS: PULSE 76
[2020-08-25 12:25] LABS: Hemoglobin 11.2 g/dL (14.0-18.0)
== END 2020-08-25 13:00 | disposition home or self-care (01) ==
LOC: ANHED 15:05 → ANH3MEDSUR 21:10
PROVIDERS: Emergency Medicine; Admitting Provider Family Medicine; Emergency Provider General Practice; PCP Family Medicine; Visit Provider Physician Assistant
DX: R42 Dizziness and giddiness (principal); C34.91 Malignant neoplasm of unspecified part of right bronchus or lung; C78.00 Secondary malignant neoplasm of unspecified lung; J70.1 Chronic and other pulmonary manifestations due to radiation; Y84.2 Radiological procedure and radiotherapy as the cause of abnormal reaction of the patient, or of later complication, without mention of misadventure at the time of the procedure; R26.81 Unsteadiness on feet; R06.00 Dyspnea, unspecified; R53.1 Weakness; R06.02 Shortness of breath; I10 Essential (primary) hypertension; I25.2 Old myocardial infarction; D64.9 Anemia, unspecified; F32.9 Major depressive disorder, single episode, unspecified; Z98.1 Arthrodesis status; Z92.21 Personal history of antineoplastic chemotherapy; Z79.51 Long term (current) use of inhaled steroids; R59.0 Localized enlarged lymph nodes
CPT/HCPCS: 36415; 36600; 70450; 70553; 71046; 71275; 80048; 80053; 80076; 81001; 82375; 82607; 82728; 82746; 82805; 83050; 83540; 83550; 84466; 84484; 85014; 85018; 85025; 85027; 85610; 85730; 93005; 96361; 96372; 96374; 96376; 97161; 97165; 99285; A9270; A9577; G0378; J0131; J1650; J7040; J7120; Q9967

== ENCOUNTER 2020-10-22 02:22 | Day surgery (SDC) | payer MEDICARE, SELFPAY ==
[2020-10-18 09:34] VITALS: BMI 21.1
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
[2020-10-22] VITALS (10 sets, daily range): BP systolic 118–144; BP diastolic 77–99; PULSE 68–84; RESP 14–25; TEMP 36.2–36.6; O2SAT 98–100
--- NOTE | 2020-10-22 07:03 | WPDHPUPDATE1 ---
History and Physical Update Update Date/Time: 10/22/20 07:03 History and Physical has been reviewed, including an updated exam of the patient. There are NO changes in the patient's condition. Risks, benefits, and alternatives have been discussed and questions answered. Patient agrees to proceed with procedure.
[2020-10-22] MEDS: LACTATED RINGERS 1,000 ML 30 ML IV CONT ×2 (11:30→13:40)
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
[2020-10-22] MEDS: OXYMETAZOLINE HCL 0.05% NAS 15 ML BTL (*BKC) 1 SPRAY NASAL (12:28)
--- NOTE | 2020-10-22 13:51 | P.OP_ITS ---
Procedure Note - Detailed Date of Procedure 10/22/20 Pre-op Diagnosis Vocal cord paralysis , left, hoarse voice Post-op Diagnosis same Procedure Performed 1. Direct laryngoscopy 2.indirect laryngoscopy With injection of vocal cord Surgeon Pankaj Mcdaniel MD Ophthalmic Technician Apprentice none Anesthesia general Indications see above Findings very difficult view unable to view the cords with direct laryngoscopy and direct laryngoscopy performed with a glide scope some medialization difficult to view Description of Procedure the patient was correctly identified and consent was verified in the preoperat maria elena holding area. The patient was then brought to the operating room time-out was performed. General anesthesia was induced and endotracheal tube was secured the patient's airway. The patient was then prepped and draped for the aforementioned procedures. Direct laryngoscopy was performed and in adequate visualization was provided with 3 different laryngoscopes. The injection needle was bent and glide scope was utilized this provided view which was adequate for injection albeit not ideal 0.5 cc of prolaryn plus were injected lateral to the left thyroarytenoid muscle/cord, Medialization was noted. all the hardware was removed including the maxillary tooth mouth guard which was placed prior to laryngoscopy. Care the patient is turned to Anesthesiology. There are no immediate complications. I performed all dictated portions. Estimated Blood Loss 1 Drains No Packing No Pathology none sent Complications No immediate complications Condition stable Disposition PACU
--- NOTE | 2020-10-22 16:45 | SUR.PHASEII ---
1600- Patient dressed and ready for discharge. Unable to reach family. Will attempt to contact daughters. Patient made aware. 1645- Patient discharged home at this time and verbalized understanding of discharge instructions.
== END 2020-10-22 16:45 | disposition home or self-care (01) ==
PROVIDERS: PCP Family Medicine; Visit Provider Otolaryngology
PROC: 0CJS8ZZ Inspection of Larynx, Via Natural or Artificial Opening Endoscopic (ICD-10-PCS; CPT 31570; principal; 2020-10-22 13:15)
DX: J38.01 Paralysis of vocal cords and larynx, unilateral (principal); C34.91 Malignant neoplasm of unspecified part of right bronchus or lung; I10 Essential (primary) hypertension; D64.9 Anemia, unspecified; F32.9 Major depressive disorder, single episode, unspecified; I25.2 Old myocardial infarction; Z79.51 Long term (current) use of inhaled steroids; Z98.1 Arthrodesis status; Z87.891 Personal history of nicotine dependence
CPT/HCPCS: 31570; A9270; C1878; J0330; J1100; J2250; J2405; J2704; J3010; J7120

== ENCOUNTER 2020-11-02 12:11 | Emergency (ER) | payer MEDICARE, SELFPAY ==
[2020-11-02] VITALS (13 sets, daily range): BP systolic 110–122; BP diastolic 83–92; PULSE 90–102; RESP 14–21; TEMP 36.1; O2SAT 97–100
--- NOTE | ~2020-11-02 | XR_ITS ---
XR chest 2V DATE: 11/02/2020 13:22 INDICATION: Chest pain, cough. Weakness. TECHNIQUE: AP and lateral views COMPARISON: 08/19/2020 CT pulmonary scan 08/19/2020 AP and lateral chest FINDINGS: Left Port-A-Cath catheter tip superimposes the superior cavoatrial area. Normal heart size. No hilar or mediastinal enlargement is evident. Stable right upper lobe scarring. No pulmonary infiltrate or consolidation, pleural effusion or pulmo nary vascular congestion or pneumothorax is detected. IMPRESSION: Stable right upper lobe scarring; no active cardiac pulmonary disease or significant [place] since 08/19/2020 Reviewed, dictated and finalized at location B. IMPRESSION: Stable right upper lobe scarring; no active cardiac pulmonary disea se or significant change since 08/19/2020
--- NOTE | 2020-11-02 12:26 | ECG_ITS ---
Measurements Intervals [place] Rate: 97 P: 72 MS: 162 QRS: -73 QRSD: 77 T: 65 QT: 340 QTc: 433 Interpretive Statements SINUS RHYTHM POSSIBLE LEFT ATRIAL ENLARGEMENT INCOMPLETE RIGHT BUNDLE BRANCH BLOCK LEFT ANTERIOR FASCICULAR BLOCK BASELINE ARTIFACT- I, III, AVR, AVL, AVF, V1-V6 ABNORMAL ECG Electronically Signed On 11-03-2020 7:43:52 CDT by Vance Molina D.O.
[2020-11-02] MEDS: ASPIRIN 81 MG CHEWABLE TABLET 324 MG PO (12:28)
[2020-11-02 12:55] LABS: Basophils Percent Auto 0.3 % (0.2-1.2); Eosinophils Absolute Auto 0.1 K/mm3 (0-0.3); Eosinophils Percent Auto 1.1 % (0-4.4); Hematocrit 42.5 % (42.0-52.0); Hemoglobin 14.3 g/dL (14.0-18.0); Immature Granulocyte Absolute 0.02 K/mm3 (0.00-0.031); Immature Granulocyte Percent A 0.3 % (0-0.5); Lymphocytes Absolute Auto 1.12 K/mm3 (0.9-3.2); Lymphocytes Percent Auto 17.3 % (18.3-44.2); Mean Corpuscular HGB Conc 33.6 g/dl (32-36); Mean Corpuscular Hemoglobin 27.5 pg (26-34); Mean Corpuscular Volume 81.7 fl (80-100); Mean Platelet Volume 8.9 fl (7.4-10.4); Monocytes Absolute Auto 0.3 K/mm3 (0.1-0.6); Monocytes Percent Auto 4.6 % (2.6-8.5); Neutrophils Percent Auto 76.4 % (45.5-73.1); Platelet Count Result 245 k/mm3 (150-375); Red Cell Distribution Width 13.7 % (11.5-14.5); White Blood Count 6.5 K/mm3 (4.5-10.0)
[2020-11-02 13:05] LABS: Anion Gap 14 mmol/L (8-16); Blood Urea Nitrogen 19 mg/dL (9-20); Calcium 9.8 mg/dL (8.4-10.2); Carbon Dioxide 20 mmol/L (22-30); Chloride 104 mmol/L (98-107); Estimated CRCL calculation 64 ml/min; Estimated Glomerular Filt Rate > 60; Glucose 187 mg/dL (65-110); Partial Thromboplastin Time 31.8 SECONDS (22.3-36.8); Potassium 3.2 mmol/L (3.4-5.0); Sodium 138 mmol/L (137-145)
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
[2020-11-02 13:31] LABS: D Dimer 0.42 ug/mL (<0.48)
[2020-11-02 16:31] LABS: Troponin I 0.019 ng/mL (0.000-0.034)
[2020-11-02] MEDS: KETOROLAC 30 MG/ML VIAL (*BKC) IV PUSH (16:55)
[2020-11-02] MEDS: POTASSIUM CHLORIDE 20 MEQ PACKET (FOR LIQUID) PO (17:13)
== END 2020-11-02 17:21 | disposition home or self-care (01) ==
PROVIDERS: Emergency Provider Emergency Medicine; PCP Family Medicine
DX: R07.9 Chest pain, unspecified (principal); D64.9 Anemia, unspecified; M19.90 Unspecified osteoarthritis, unspecified site; F32.9 Major depressive disorder, single episode, unspecified; I10 Essential (primary) hypertension; Z85.118 Personal history of other malignant neoplasm of bronchus and lung
CPT/HCPCS: 36415; 71046; 80048; 84484; 85025; 85380; 85610; 85730; 93005; 96374; 99284; A9270; J1885

== ENCOUNTER 2020-11-24 22:27 | Inpatient (IN) | payer MEDICARE, SELFPAY ==
--- NOTE | ~2020-11-24 | CT_ITS ---
EXAMINATION: CTA chest PE protocol EXAM DATE: 11/25/2020 00:29 INDICATION: Shortness of breath, elevated D-dimer. TECHNIQUE: Spiral CTA of the chest (pulmonary arteries) was performed with 100 cc Omnipaque 350 intr avenous contrast injection. Images were acquired during the pulmonary arterial phase. Coronal maxi mum intensity projection 3D-reconstructions were created by the technologist on dedicated workstation . Axial, coronal and sagittal reformatted images were reviewed. The dose-length product (DLP) for t his examination was 164.02 mGy-cm. The exposure was tailored according to patient size (auto mA exp osure control), and iterative reconstruction (ASIR) was used as additional dose reduction technique. Comparison is made to prior examination from 08/23/2020. FINDINGS: Pulmonary arteries are well opacified and without intraluminal filling defects. No thora cic aortic dissection. Right upper lobe volume loss, scarring, probably stable radiation related nidhi nge given history of lung cancer. There is moderate emphysema. There is left lower lobe subsegmental atelectasis. There is small pericardial effusion. Tracheobronchial tree is patent. There is no me diastinal, hilar or axillary lymphadenopathy. There is no pneumothorax. Heart normal in size. N o evidence of coronary arterial calcification. Upper abdomen is unremarkable. There is thoracic sp ondylosis without osteoblastic or osteolytic lesions identified. IMPRESSION: 1. Stable right upper lobe scarring. 2. Moderate emphysema. 3. Left basilar subsegmental atelectasis. 4. Small pericardial effusion. 5. No pulmonary emboli. Reviewed, dictated and finalized at location A.
[2020-11-24 22:24] VITALS: BP 150/103; PULSE 119; RESP 32; TEMP 36.3; O2SAT 100
--- NOTE | 2020-11-24 22:32 | ECG_ITS ---
Measurements Intervals [place] Rate: 121 P: 76 TN: 158 QRS: -21 QRSD: 78 T: 70 QT: 312 QTc: 444 Interpretive Statements SINUS TACHYCARDIA EARLY PRECORDIAL R/S TRANSITION BORDERLINE ST-T WAVE ABNORMALITY- HIGH LATERAL LEADS BASELINE ARTIFACT- I, II, III, AVR, AVL, AVF, V3-V6 ABNORMAL ECG Electronically Signed On 11-25-2020 5:51:13 CDT by Vance Molina D.O.
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
[2020-11-24 22:43] LABS: Basophils Percent Auto 0.3 % (0.2-1.2); Eosinophils Percent Auto 0.3 % (0-4.4); Hematocrit 39.8 % (42.0-52.0); Hemoglobin 12.9 g/dL (14.0-18.0); Immature Granulocyte Absolute 0.02 K/mm3 (0.00-0.031); Immature Granulocyte Percent A 0.2 % (0-0.5); Lymphocytes Absolute Auto 1.69 K/mm3 (0.9-3.2); Lymphocytes Percent Auto 17.2 % (18.3-44.2); Mean Corpuscular HGB Conc 32.4 g/dl (32-36); Mean Corpuscular Hemoglobin 26.8 pg (26-34); Mean Corpuscular Volume 82.7 fl (80-100); Mean Platelet Volume 8.3 fl (7.4-10.4); Monocytes Absolute Auto 0.9 K/mm3 (0.1-0.6); Monocytes Percent Auto 8.9 % (2.6-8.5); Neutrophils Absolute Auto 7.2 K/mm3 (1.3-6.7); Neutrophils Percent Auto 73.1 % (45.5-73.1); Platelet Count Result 351 k/mm3 (150-375); Red Blood Count 4.81 M/mm3 (4.6-6.20); Red Cell Distribution Width 14.2 % (11.5-14.5); White Blood Count 9.8 K/mm3 (4.5-10.0)
[2020-11-24 22:48] LABS: Base Excess ABG -1.1 mEq/l (+/-2.0); Fractional Inspired Oxygen 100 %; HCO3 ABG 18.2 mEq/l (22.0-26.0); Oxyhemoglobin 98.8 % THb (90.0-100.0); Total Hemoglobin 13.4 g/dL (12.0-18.0)
[2020-11-24 22:51] LABS: pH ABG 7.598 (7.350-7.450)
[2020-11-24 22:52] LABS: Modified Allen's Test Pass; Site Drawn RIGHT RADIAL
[2020-11-24 22:53] LABS: Partial Thromboplastin Time 31.1 SECONDS (22.3-36.8)
[2020-11-24 22:54] LABS: Device NON-INVASIVE VENT; Non-Invasive Expiratory Pressure 5 CMH2O; Non-Invasive Inspiratory Pressure 12 CMH2O; Non-Invasive Vent Rate 20 /MIN
[2020-11-24 22:55] LABS: D Dimer 0.86 ug/mL (<0.48)
[2020-11-24 22:56] VITALS: PULSE 120; RESP 46; O2SAT 100
[2020-11-24] MEDS: IPRATROPIUM BR 0.02% INH SOLN 0.5 MG/2.5 ML VIAL INHALATION (23:02)
[2020-11-24] MEDS: ALBUTEROL SULFATE NEB 2.5 MG/0.5 ML INH 5 MG INHALATION (23:02)
[2020-11-24] MEDS: LORazepam INJ (*CRX) 2 MG/ML VIAL IV PUSH (23:03)
[2020-11-24 23:04] LABS: Alanine Aminotransferase 15 U/L (4-50); Albumin Level 4.7 g/dL (3.5-5.1); Alkaline Phosphatase 91 U/L (38-126); Anion Gap 14 mmol/L (8-16); Aspartate Amino Transferase 25 U/L (17-59); Bilirubin,Total 0.6 mg/dL (0.2-1.3); Blood Urea Nitrogen 15 mg/dL (9-20); Carbon Dioxide 22 mmol/L (22-30); Chloride 98 mmol/L (98-107); Estimated Glomerular Filt Rate > 60; Glucose 121 mg/dL (65-110); Sodium 134 mmol/L (137-145)
[2020-11-24 23:07] VITALS: PULSE 122; RESP 34
[2020-11-24 23:13] LABS: NT Pro B Type Natriuretic Pept 23 pg/mL (5-100); Troponin I 0.034 ng/mL (0.000-0.034)
[2020-11-24 23:15] VITALS: PULSE 122; RESP 24
[2020-11-25] VITALS (34 sets, daily range): BP systolic 105–146; BP diastolic 68–110; PULSE 67–115; RESP 16–189; TEMP 35.6–36.8; O2SAT 96–100; BMI 18.5
--- NOTE | 2020-11-25 | ECHO_ITS ---
Patient Info Name: Shubham Sutton Age: 65 years : 1955 Gender: Male Ht: 67 in Wt: 118 lbs BSA: 1.58 m2 HR: 94 bpm BP: 130 / 80 mmHg Heart Rhythm: Sinus Rhythm Technical Quality: Fair Exam Date: 11/25/2020 2:28 PM Exam Location: [facility] Pulmonary Patient Status: Inpatient Admit Date: 11/25/2020 Staff Ordering Physician: Cassandra Whiteside Food Storeroom Clerk: NARINDER Attending Provider: Nathalie Mondragon DO Referring Physician: Stevo MARTINEZ; Exam Type: CA echo doppler color flow Study Info Indications I31.3 - Pericardial effusion (noninflammatory) Complete two-dimensional, color flow and Doppler transthoracic echocardiogram is performed. Summary 1. Complete two-dimensional, color flow and Doppler transthoracic echocardiogram is performed. 2. Left ventricular chamber dimension is normal. 3. Left ventricular systolic function is normal, estimated at 60-65%. 4. There is no increased left ventricular wall thickness. 5. The left ventricular diastolic function is grade I diastolic dysfunction. 6. The pericardium appears thickened pericardium. 7. There is small pericardial effusion. 8. No clear evidence of tamponade physiology by echo. Left Ventricle Left ventricular chamber dimension is normal. Left ventricular systolic function is normal, estimated at 60-65%. There is no increased left ventricular wall thickness. The left ventricular diastolic function is grade I diastolic dysfunction. Right Ventricle Right ventricular chamber dimension is normal. Right ventricular systolic function is normal. Left Atria Left atrial chamber dimension is normal. Right Atria Right atrial chamber dimension is normal. Atrial Septum Intact interatrial septum visualized by color flow imaging. Aortic Valve The aortic valve is trileaflet. There is mild aortic valve sclerosis. There is no aortic valve stenosis. There is trace aortic valve regurgitation. Pulmonic Valve The pulmonic valve is normal. There is no pulmonic valve stenosis. Mitral Valve The mitral valve has normal leaflets. There is no mitral valve stenosis. There is trace mitral valve regurgitation. Tricuspid Valve The tricuspid valve leaflets are normal. There is no significant tricuspid valve stenosis. There is trace tricuspid valve regurgitation. Pericardium/Pleural The pericardium appears thickened pericardium. There is small pericardial effusion. No clear evidence of tamponade physiology by echo. Inferior Vena Cava Normal inferior vena cava with >50% collapse upon inspiration consistent with normal right atrial pressure, 5 mmHg. Aorta The aortic root size at the sinus of Valsalva is normal. Left Ventricular Outflow Tract Name Value Normal LVOT 2D LVOT Diameter 2.0 cm LVOT Doppler LVOT Peak Gradient 5 mmHg LVOT Mean Gradient 3 mmHg LVOT VTI 21 cm LVOT VTI/AV VTI Ratio 1.3 LVOT Stroke Volume 69 ml LVOT CO 15.1 l/min
[2020-11-25 00:26] LABS: Lactic Acid Reflex 1.2 mmol/L (0.7-2.1)
[2020-11-25] MEDS: KCL 20 MEQ/D5/0.45% SOD CHL 1,000 ML 125 ML IV CONT (03:45)
[2020-11-25 04:42] LABS: EDCOVIDSCREEN Negative (Negative)
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
[2020-11-25] MEDS: HEPARIN SODIUM 5,000 UNITS/ML VIAL 5000 UNITS SUB-Q ×2 (11:34→20:52)
[2020-11-25] MEDS: ACETAMINOPHEN 325 MG TABLET 650 MG PO ×2 (13:17→18:44)
[2020-11-26 00:04] VITALS: BP 124/89; PULSE 89; RESP 18; TEMP 36.2; O2SAT 100
[2020-11-26] MEDS: ACETAMINOPHEN 325 MG TABLET 650 MG PO (00:08)
[2020-11-26 05:10] VITALS: BP 118/86; PULSE 94; RESP 18; TEMP 36.1; O2SAT 97
[2020-11-26 06:00] LABS: Basophils Percent Auto 0.3 % (0.2-1.2); Eosinophils Percent Auto 0.3 % (0-4.4); Hematocrit 36.8 % (42.0-52.0); Hemoglobin 11.7 g/dL (14.0-18.0); Immature Granulocyte Absolute 0.02 K/mm3 (0.00-0.031); Immature Granulocyte Percent A 0.2 % (0-0.5); Lymphocytes Absolute Auto 1.79 K/mm3 (0.9-3.2); Lymphocytes Percent Auto 18.3 % (18.3-44.2); Mean Corpuscular HGB Conc 31.8 g/dl (32-36); Mean Corpuscular Hemoglobin 26.6 pg (26-34); Mean Corpuscular Volume 83.6 fl (80-100); Mean Platelet Volume 8.4 fl (7.4-10.4); Monocytes Absolute Auto 0.9 K/mm3 (0.1-0.6); Monocytes Percent Auto 9.5 % (2.6-8.5); Neutrophils Percent Auto 71.4 % (45.5-73.1); Platelet Count Result 342 k/mm3 (150-375); Red Cell Distribution Width 14.3 % (11.5-14.5); White Blood Count 9.8 K/mm3 (4.5-10.0)
[2020-11-26 06:06] LABS: Anion Gap 9 mmol/L (8-16); Blood Urea Nitrogen 19 mg/dL (9-20); Calcium 9.3 mg/dL (8.4-10.2); Carbon Dioxide 27 mmol/L (22-30); Chloride 98 mmol/L (98-107); Estimated CRCL calculation 65 ml/min; Estimated Glomerular Filt Rate > 60; Glucose 105 mg/dL (65-110); Potassium 3.9 mmol/L (3.4-5.0); Sodium 134 mmol/L (137-145)
[2020-11-26] MEDS: HEPARIN SODIUM 5,000 UNITS/ML VIAL 5000 UNITS SUB-Q (08:41)
[2020-11-26] MEDS: ONDANSETRON INJ 4 MG/2 ML VIAL IV PUSH (09:17)
[2020-11-26] MEDS: HYDROcodone/acetaminophen (*CRX) 5-325 MG TABLET 1 TAB PO (09:17)
[2020-11-26 10:00] VITALS: BP 131/78; PULSE 98; RESP 18; TEMP 36.5; O2SAT 99
[2020-11-26] MEDS: PHENOL/SOD PHENO SPRAY CHERRY (*BKC) 1 SPRAY MUCOUS MEM (10:24)
[2020-11-26] MEDS: LORazepam (*CRX) 0.5 MG TABLET 0.25 MG PO (10:44)
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
--- NOTE | 2020-11-26 13:50 | PM.DS ---
DS: Admitting Diagnosis Admitting Diagnosis acute respiratory failure DS: Discharge Diagnosis Discharge Diagnosis (1) Acute respiratory failure: Qualifiers: Respiratory failure complication: unspecified whether with hypoxia or hypercapnia Qualified Code(s): J96.00 - Acute respiratory failure, unspecified whether with hypoxia or hypercapnia Code(s): J96.00 - Acute respiratory failure, unspecified whether with hypoxia or hypercapnia Status: Acute Assessment and Plan: No on RA Suspect 2/2 recent lung cancer s/p radiation and chemo and emphysema Improved on BiPAP S/p duo nebs On albuterol at home (2) Metastatic lung carcinoma: Code(s): C78.00 - Secondary malignant neoplasm of unspecified lung Status: Acute Assessment and Plan: Diagnosed in April [address] Giron and Dr. Mondragon S/p radiation and chemotherapy Recently f/u visit Consulted Dr. Giron, pt will f/u outpatient (3) Acute hypokalemia: Code(s): E87.6 - Hypokalemia Status: Acute Assessment and Plan: Resolved K+ 3.2-->3.0-->3.9 today Will give 40 meq KCL IVPB Monitor (4) Pericardial effusion: Code(s): I31.3 - Pericardial effusion (noninflammatory) Status: Acute Assessment and Plan: Noted on CTA ECHO reassuring, no tamponade (5) Abnormal computed tomography angiography (CTA): Code(s): R93.89 - Abnormal findings on diagnostic imaging of other specified body structures Status: Acute Assessment and Plan: No leukocytosis, afebrile, lactic wnl Empiric antibiotics, d/c'd BC NGTD Consistent with COPD DS: Summary Hospital Course Hospital Course: Shubham Sutton is a 65 year old man with a past medical history significant for non small cell cancer of the right lung, HTN, anemia and depression has been admitted after presenting to the ED via EMS in respiratory distress. He tells me was home sleeping when he suddenly was extremely short of breath. He denies any similar episodes in the past. He also reports associated diaphoresis. According to EMS his O2 saturation was 87% on room air. He was placed on a nonrebreather with no improvement and was placed on BiPAP. He denied any PACHECO, dizziness, chest pain, nausea, vomiting or abdominal pain. In the ED CBC was unremarkable; K+ 3.0; D-dimer 0.86; CTA showed stable right upper lobe scarring; moderate emphysema; left basilar subsegmental atelectasis; small pericardial effusion; no pulmonary emboli. He was given IV KCL and IV empiric IV antibiotics were initiated. Blood cultures have been sent. The patient has been admitted to observation status for further evaluation and treatment. Dr. Giron was consulted for further input and recommendations. He recommended Mucinex for pulmonary secretions. The patient is feeling better and is maintaining O2 saturation at >96% on RA. He has been advised to follow up with oncology and ENT at discharge. Time Spent with Patient Time attestation: Total time spent providing and/or coordinating discharge services: Time spent: Greater than 30 minutes Exam Const: General: no acute distress, alert and awake Orientation/consciousness: patient oriented x3 HENMT: Head: normocephalic and atraumatic Ears: hearing grossly normal bilaterally and external ears normal Face and sinus: face symmetric Mouth: Yes Normal oral and palatal mucosa present Eyes: Pupils: Equal, round and reactive pupils present EOM: EOMs intact bilaterally Neck: Neck: full ROM, trachea midline and no JVD Thyroid: thyroid normal Chest: Chest palpation & inspection: normal inspection of the chest Resp: Effort & Inspection: normal respiratory effort Auscultation: diminished lung sounds Cardio: Rate: regular rate Rhythm: regular rhythm Heart sounds: S1 normal heart sound present and S2 normal heart sound present GI: Inspection: normal to inspection Auscultation: normal bowel sounds : General: Yes no CVA
[2020-11-26] MEDS: MAGNES & ALUM HYD/SIMETH/DIPHENHYD/LIDOCAINE 119 ML MOUTHWASH BY MOUTH (14:11)
== END 2020-11-26 14:57 | disposition home or self-care (01) | DRG 189 ==
LOC: ANHED 11-25 03:19 → ANHICU 11-25 04:42 → ANH2MED 11-25 05:29
PROVIDERS: Admitting Provider Internal Medicine; Emergency Provider Emergency Medicine; PCP Family Medicine; Visit Provider Nurse Practitioner Adult Health
DX: J96.00 Acute respiratory failure, unspecified whether with hypoxia or hypercapnia (principal); I31.3 Pericardial effusion (noninflammatory); E87.6 Hypokalemia; J47.9 Bronchiectasis, uncomplicated; R49.0 Dysphonia; J43.9 Emphysema, unspecified; Z20.822 Contact with and (suspected) exposure to COVID-19; Z85.118 Personal history of other malignant neoplasm of bronchus and lung; M19.90 Unspecified osteoarthritis, unspecified site; F32.9 Major depressive disorder, single episode, unspecified; Z91.5 Personal history of self-harm; I10 Essential (primary) hypertension; I25.2 Old myocardial infarction; Z98.1 Arthrodesis status; Z87.891 Personal history of nicotine dependence; D64.9 Anemia, unspecified; Z92.21 Personal history of antineoplastic chemotherapy; Z92.3 Personal history of irradiation
CPT/HCPCS: 36415; 36600; 71275; 80048; 80053; 82805; 83605; 83880; 84484; 85025; 85380; 85610; 85730; 87040; 87426; 93005; 93306; 94640; 96365; 96366; 96367; 96368; 96375; 99285; A9270; C9803; G0378; J0456; J0696; J1100; J1644; J2060; J2405; J3480; Q9967

== ENCOUNTER 2020-12-16 07:58 | Outpatient (CLI) | payer MEDICARE, SELFPAY ==
--- NOTE | ~2020-12-16 | CT_ITS ---
EXAMINATION: CT diagnostic chest w con DATE: 12/16/2020 08:40 INDICATION: Right lung cancer TECHNIQUE: Transaxial computed tomographic images of the chest were obtained after the administration of 75 cc of Omnipaque 350 intravenous contrast. The dose-length product (DLP) was 124.88 mGy-cm. Ite rative reconstruction was used. COMPARISON: 11/25/2020 FINDINGS: There is moderate emphysema. There are airspace opacities with architectural distortion and volume loss in the right upper lobe and superior segment of the right lower lobe. There appears to b e a 1.2 x 1.0 cm right upper lobe nodule on image 34 there is no pleural effusion or pneumothorax. Th e heart size is normal. A left internal jugular Port-A-Cath ends with its tip in the proximal right a trium. Mild right hilar, subcarinal, and aortopulmonary window lymphadenopathy is stable. There is mi ld thoracic spondylosis. IMPRESSION: 1. Radiation fibrosis of the right upper lobe and superior segment of the right lower lobe with possi ble new adjacent nodule in the right upper lobe. Further evaluation with PET/CT is recommended. 2. Stable mild mediastinal and right hilar lymphadenopathy, consistent with metastatic disease. Reviewed, dictated and finalized at location A. IMPRESSION: 1. Radiation fibrosis of the right upper lobe and superior segment of the right lower lobe with possible new adjacent nodule in the right upper lobe. Further evaluation with PET/CT is recommended. 2. Stable mild mediastinal and right hilar lymphadenopathy, consistent with met astatic disease.
== END 2020-12-16 07:59 | disposition home or self-care (01) ==
LOC: ANHIMG 08:02
PROVIDERS: PCP Family Medicine; Visit Provider Internal Medicine Hematology & Oncology
DX: C34.11 Malignant neoplasm of upper lobe, right bronchus or lung (principal); R91.8 Other nonspecific abnormal finding of lung field
CPT/HCPCS: 71260; Q9967

== ENCOUNTER 2020-12-23 12:00 | Outpatient (CLI) | payer MEDICARE, SELFPAY ==
--- NOTE | ~2020-12-23 | PE_ITS ---
EXAMINATION: PET skull to mid thigh DATE: 12/23/2020 14:37 INDICATION: Malignant neoplasm of the upper lobe of right lung. TECHNIQUE: Blood glucose level was 60 mg/dL. 9.623 mCi of 18-fluorodeoxyglucose (18-FDG) was administ ered i.v. Low dose computed tomography (CT) images were acquired from the base of the brain to the pr oximal thighs for attenuation correction and anatomic localization. Automated exposure control was em ployed. Dose-length product (DLP) was 261 mGy-cm. Positron emission tomography (PET) images were acqu ired in the same distribution. COMPARISON: Chest CT 12/16/2020, 04/14/19 FINDINGS: Head/neck: There is injected high-density material in the left true vocal cord. There is increased ac tivity in the glottis, which may be inflammation and/or physiologic activity. There are changes of po sterior fusion procedure in cervical spine. Chest: There is moderate emphysema. There is mild atelectasis on the left. There is mild scarring in left upper lobe. A calcified left lung nodule and calcified left hilar and mediastinal lymph nodes ar e consistent with old granulomatous disease. There are airspace opacities with volume loss and varico se bronchiectasis involving right upper lobe and superior segment right lower lobe, consistent with r adiation fibrosis. There is an 11 mm nodule within this volume in right upper lobe with maximum SUV o f 5.4. This area was involved by the primary malignancy on 04/14/19. There is mild scarring in paraspi nal right upper lobe. The heart size is normal. There are coronary artery calcifications. No pericard ial effusion. The left internal jugular port with tip in right atrium. There is fat stranding in the mediastinum, consistent with changes of radiation therapy. There is irregularity of the tracheal wall with wall thickening, increased activity, and foci of adjacent pneumomediastinum, consistent with ra diation necrosis. There is a mildly enlarged subcarinal lymph node with increased activity. Abdomen/pelvis/proximal thighs: The liver, spleen, pancreas, adrenal glands, and kidneys are normal. There are no dilated loops of bowel. There are no pathologically enlarged lymph nodes. There is no fr ee intraperitoneal fluid. Stool distends the rectum. There is no osseous malignancy. IMPRESSION: 1. Focal nodule with increased activity in right lung upper lobe. The differential diagnosis includes worsened primary malignancy, radiation pneumonitis, and pneumonia. 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 2. Abnormal trachea with adjacent pneumomediastinum, likely radiation necrosis. 3. Mildly enlarged subcarinal lymph node with increased activity, which may be reactive or metastatic disease. Reviewed, dictated and finalized at location A. IMPRESSION: 1. Focal nodule with increased activity in right lung upper lobe. The different ial diagnosis includes worsened primary malignancy, radiation pneumonitis, and pneumonia. Radiation fibrosis in right upper lobe and superior segment right lo wer lobe. 2. Abnormal trachea with adjacent pneumomediastinum, likely radiation necrosis. 3. Mildly enlarged subcarinal lymph node with increased activity, which may be reactive or metastatic disease.
[2020-12-23 12:34] LABS: Glucose Point of Care 60 mg/dl (65-105)
== END 2020-12-23 12:01 | disposition home or self-care (01) ==
LOC: ANHIMG 12:05
PROVIDERS: PCP Family Medicine; Visit Provider Internal Medicine Hematology & Oncology
DX: C34.11 Malignant neoplasm of upper lobe, right bronchus or lung (principal)
CPT/HCPCS: 78815; A9552

== ENCOUNTER 2021-01-28 00:39 | Emergency (ER) | payer MEDICARE, SELFPAY ==
--- NOTE | 2021-01-28 01:05 | PC.NURSE ---
spoke to Yasemin with [facility], she states patient is not a candidate for organ donation and is released to the home at this time
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
== END 2021-01-28 03:01 | disposition expired ==
PROVIDERS: Emergency Provider General Practice; PCP Family Medicine
DX: I46.9 Cardiac arrest, cause unspecified (principal); I10 Essential (primary) hypertension; I25.2 Old myocardial infarction; Z85.118 Personal history of other malignant neoplasm of bronchus and lung; Z92.21 Personal history of antineoplastic chemotherapy; Z86.2 Personal history of diseases of the blood and blood-forming organs and certain disorders involving the immune mechanism; Z98.1 Arthrodesis status; Z77.22 Contact with and (suspected) exposure to environmental tobacco smoke (acute) (chronic)
CPT/HCPCS: 92950; 99285